=== PATIENT | female | born 1930 | race Caucasian/White ===

== ENCOUNTER 2017-07-07 05:58 | Inpatient (IN) | payer MEDICARE, OTHER ==
[2017-07-07] MEDS ORDERED: Dexamethasone IV* 4 MG/ML 1 ML (4 MG) IV SLOW PU ONE (06:00)
[2017-07-07] MEDS ORDERED: Acetaminophen TAB* 325 MG PO ONE (06:00)
[2017-07-07] MEDS ORDERED: Buffered Lidocaine 0.9% SYRIN* 5 ML/SYR SYRINGE INTRADERM ONE (06:00)
[2017-07-07] MEDS ORDERED: ceFAZolin 2 GM PREMIX (*) 2 GM/50 ML BAG IVPB ONE (06:37)
[2017-07-07] MEDS ORDERED: Acetaminophen TAB* 325 MG ONE (06:37)
[2017-07-07] MEDS ORDERED: Dexamethasone IV* 4 MG/ML 1 ML (4 MG) ONE (06:37)
[2017-07-07] MEDS ORDERED: Buffered Lidocaine 0.9% SYRIN* 5 ML/SYR SYRINGE ONE (06:37)
[2017-07-07] MEDS ORDERED: Bupivacaine 0.25% SDV* 30 ML ONE (07:12)
[2017-07-07] MEDS ORDERED: fentaNYL* 50 MCG/ML 2 ML VIAL (100 MCG VIAL) ONE (07:13)
[2017-07-07] MEDS ORDERED: Midazolam* 1 MG/ML 2 ML VIAL (2 MG) ONE (07:13)
[2017-07-07] MEDS ORDERED: Levalbuterol 0.63MG/3ML NEB* UNIT OF USE INH PRN (07:25)
[2017-07-07] MEDS ORDERED: Ibuprofen TAB* 400 MG PO PRN (07:25)
[2017-07-07] MEDS ORDERED: fentaNYL* 50 MCG/ML 2 ML VIAL (100 MCG VIAL) IV PRN (07:25)
[2017-07-07] MEDS ORDERED: PROCHLORPERAZINE INJ 5 MG/ML 2 ML VIAL IV PRN (07:25)
[2017-07-07] MEDS ORDERED: oxyCODONE TAB* 5 MG TAB PO PRN (07:25)
[2017-07-07] MEDS ORDERED: HYDROmorphone INJ* 1 MG/ML CARPUJECT SYRINGE IV PRN (07:25)
[2017-07-07] MEDS ORDERED: Ondansetron INJ* 2 MG/ML VIAL IV PRN (07:25)
[2017-07-07] MEDS ORDERED: Levalbuterol 1.25MG/0.5ML NEB ONE (07:45)
[2017-07-07] MEDS ORDERED: Phenylephrine IV* 40 MCG/ML 10 ML SYRINGE ONE (09:00)
[2017-07-07] MEDS ORDERED: Propofol* 10 MG/ML 20 ML BTL IV PUSH ONE (09:00)
[2017-07-07] MEDS ORDERED: EPHEDrine (Pressors)* 50 MG/ML VIAL ONE (09:00)
[2017-07-07] MEDS ORDERED: Succinylcholine* 20 MG/ML 10 ML VIAL ONE (09:00)
[2017-07-07] MEDS ORDERED: Lidocaine 2% PF * 5 ML VIAL ONE (09:00)
[2017-07-07] MEDS ORDERED: Ondansetron INJ* 2 MG/ML VIAL ONE (09:00)
[2017-07-07] MEDS ORDERED: Sterile Water for Inj* 10 ML ONE (09:00)
[2017-07-07] MEDS ORDERED: Acetaminophen TAB* 325 MG PO PRN (11:14)
[2017-07-07] MEDS ORDERED: oxyCODONE/Acetamin 5/325 MG* TAB PO PRN (11:14)
[2017-07-07] MEDS ORDERED: diPHENhydraMINE PO* 25 MG PO PRN (11:14)
[2017-07-07] MEDS ORDERED: Carisoprodol TAB* 350 MG PO PRN (11:23)
[2017-07-07] MEDS ORDERED: Al Hydrox/Mg Hydrox/Simet LIQ* 30 ML UDC PO PRN (11:23)
[2017-07-07] MEDS ORDERED: Albuterol/Ipratropium NEB.SOL* Albuterol 2.5 MG/Ipratropium 0.5 MG 3 ML INH PRN (11:23)
[2017-07-07] MEDS ORDERED: LORazepam TAB(*) 0.5 MG PO PRN (11:23)
[2017-07-07] MEDS ORDERED: Olopatadine 0.2% (NF) 1 DROP BTL BOTH EYES PRN (11:23)
[2017-07-07] MEDS ORDERED: oxyCODONE TAB* 5 MG TAB ONE (12:10)
[2017-07-07] MEDS ORDERED: Senna TAB PO PRN (16:56)
[2017-07-07] MEDS: Mirtazapine TAB* 15 MG PO SCH (18:16)
[2017-07-07] MEDS: Betaxolol-S 0.25%* 10 ML BTL BOTH EYES SCH (18:18)
[2017-07-07] MEDS: Docusate CAP* 100 MG PO SCH (20:57)
[2017-07-07] MEDS: Magnesium Hydroxide LIQ* 30 ML UDC PO PRN (20:57)
[2017-07-08] MEDS: Naproxen TAB* 250 MG PO PRN (00:46)
[2017-07-08] MEDS: Omeprazole CAP* 20 MG PO SCH (08:02)
[2017-07-08] MEDS: Docusate CAP* 100 MG PO SCH ×2 (08:02→19:24)
[2017-07-08] MEDS: Tiotropium CAP.INH* CAP.INH/18 MCG (USE ORDER SET !) INH SCH (08:17)
--- NOTE | 2017-07-08 08:39 | PN ---
Progress Note - Progress Note Date of Service: 07/08/17 SOAP: Subjective: []Patient seen at bedside. She denies pain of RUE as long as she does not move it. Denies shortness of breath or chest pain. Has post nasal drip with mild productive cough. Objective: [] Vital Signs Temp 98.6 F 07/08/17 03:45 Pulse 83 07/08/17 03:45 Resp 14 07/08/17 07:15 BP 130/55 07/08/17 03:45 Pulse Ox 94 07/08/17 03:45 Intake & Output 07/07/17 07/08/17 07/08/17 18:59 06:59 18:59 Intake Total 1100 350 Output Total 225 200 200 Balance 875 150 -200 Intake: IV Fluids 800 CEFAZOLIN 2G 100 LR 700 Oral 300 350 Output: Urine 225 200 200 Other: # Bowel Movements 0 General: Well appearing, no acute distress. Calm and cooperative. RUE: in CDI splint, thumb and distal digits 2,3,4 exposed with sensation intact to light touch and brisk capillary refill. Good ROM of thumb, mild swelling. Does have ability to minimally wiggle digits 2-4 limited by splint. 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
--- NOTE | 2017-07-08 08:57 | OP ---
DATE OF OPERATION: 07/07/17 - ROOM #335 DATE OF : 34 SURGEON: Willam Madrigal MD STORAGE RECEIPT POSTER: BINU Zaman. An podiatrist assistant was needed for the entirety of the procedure to aid in positioning of the arm and retraction. ANESTHESIOLOGIST: Dr. Julia Wolfe. ANESTHESIA: General. PRE-OP DIAGNOSES: 1. 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 2. Subluxation extensor tendons with deficiency of the radial sagittal band, right index and middle fingers. POST-OP DIAGNOSIS: 1. 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 2. Subluxation extensor tendons with deficiency of the radial sagittal band, right index and middle fingers. OPERATIVE PROCEDURE: 1. Transfer of right ring finger extensor tendons on the dorsum of the hand to the third extensor digitorum communis tendon. 2. Transfer of the right small finger extensor tendons on the dorsum of the hand to the third extensor digitorum communis tendons. 3. Right distal ulna excision. 4. Right index finger extensor tendon centralization with radial sagittal band reconstruction. 5. Right middle finger extensor tendon centralization with radial sagittal band reconstruction. INDICATIONS: Aspen has had ruptures of her third and fourth extensor tendons without much ability to extend the small finger with very poor extension of the ring finger. She has other rheumatoid like findings including extensor tendon subluxation of the index and middle finger ulnarly with snapping of the middle finger, which was bringing out to full extension. She has a very prominent ulnar head distally. I talked to her about her options. She wanted to see if she gets an improved function of the hand and also see if we could do something to try to prevent further tendon ruptures. Of note, finger snapping was quite bothersome to her and she wanted to see if there is anything we could do to increase her ability to fix that. ESTIMATED BLOOD LOSS: 10 mL. COMPLICATIONS: I attempted to transfer the extensor indicis proprius tendon; however, it was unsuitable for transfer. DESCRIPTION OF PROCEDURE: Aspen was seen in the preoperative holding area. The correct site, side, and procedure were identified. We came back to the operating room. The arm was prepped and draped in the usual fashion and a time- out was performed. I began by making a transfer lazy-S type incision over the index and middle finger of second metacarpophalangeal joints. Dissection was carried down and full thickness flaps were raised off of the extensor tendon apparatus. The extensor indicis proprius tendon was released distally. I then came proximally and made a longitudinal incision over the ulnar aspect of the first dorsal compartment across the wrist joint. The extensor retinaculum was released overlying the fifth dorsal compartment. There was no extensor tendon there. The fourth dorsal compartment tendons were identified just proximal to the extensor retinaculum. DIP tendon was delivered proximal. I then made an arthrotomy over the DRUJ and then teethed this back transversely and distally just proximal to the dorsal radioulnar ligament. Soft tissue around the distal ulna was released with a knife with baby Hohmann was placed around the distal ulna. The distal ulna was excised just proximal to the DRUJ using a sagittal saw. I then made a 3.5 mm hole in the distal ulna stump. ECU tendon was split and distal half of the tendon was then transferred. Through the drill hole on the distal ulna stump released back on to itself and appropriate tension was set to secure the transfer. This was sewn in place with 3-0 Ethibond suture. It was performed at the wrist in the neutral extension. I then past the EIP tendon superficial of the extensor retinaculum and on to the dorsum of the hand. We went ahead and sewed the extensor tendon stumps to the ring and small fingers together after the fingers have been set in a nice cascade. I then went ahead and wove the EIP tendon through the fourth and fifth extensor digitorum communis tendons. When I went to set tension for the transfer, the EIP tendon ruptured at the musculotendinous junction. Given the lack of suitability for the EIP tendon, I went ahead and weaved the fourth and fifth tendon stumps through the extensor digitorum communis tendon of the middle finger. I set the tension at the wrist and 30 degrees extension and the fingers in slight hyperextension at the MCP joints. The tendon transfer was secured with a 3-0 Ethibond suture. I then checked the tension. It was looking good, so I went ahead and secure the rest of the transfer with 3-0 Ethibond suture to complete the peripheral TFCC beneath. Once that tendon transfer was complete, I turned my attention to the extensor tendons of the second and third fingers. I went ahead and took a distally based slip of the third EDC tendon. This was a very small piece. I wove it around the radial collateral ligament and then brought back up and sewed it to the extensor velasquez. This centralized the tendon very nicely. I augmented with a couple of additional 3-0 Ethibond figure-of- eight sutures. I centralized the index finger extensor tendon in a similar fashion with distally based split of the EDC tendon. This was brought down around the radial collateral ligament and sewn up to the extensor tendon in a similar fashion and augmented with a couple of 3-0 Ethibond [id number] sutures. I then checked the tendinosis. The fingers were moving in a very nice cascade. Everything was looking good, so I we went ahead and irrigated out the wounds. The arthrotomy with a DRUJ was closed with 4-0 Vicryl. A small proximal extensor retinaculum was closed with 4-0 Vicryl. The skin was closed with 4-0 nylon suture. All the operative wounds were infiltrated with 0.25% Marcaine. The wounds were dressed with Xeroform, 4x4, sterile Webril, and ABD over the dorsum of the wrist and then a wrist splint was applied holding the wrist in slight extension in the MCP joints of the second through fifth fingers in full extension and EIP joints in full extension. The tourniquet was deflated. The hand pinked up immediately. She was then woken up and taken to recovery room in stable condition. [id number]/[facility] #: [id number] ROBERT
[2017-07-08] MEDS ORDERED: Spiriva Inhaler DEVICE* 1 EACH DEVICE INH ONE (09:00)
[2017-07-08] MEDS: Betaxolol-S 0.25%* 10 ML BTL BOTH EYES SCH (17:25)
[2017-07-08] MEDS: Mirtazapine TAB* 15 MG PO SCH (17:25)
[2017-07-08] MEDS: Magnesium Hydroxide LIQ* 30 ML UDC PO PRN (19:24)
[2017-07-09] MEDS: Omeprazole CAP* 20 MG PO SCH (07:12)
[2017-07-09] MEDS: Naproxen TAB* 250 MG PO PRN (07:14)
--- NOTE | 2017-07-09 08:10 | PN ---
Progress Note - Progress Note Date of Service: 07/09/17 SOAP: Subjective: []Patient seen at bedside. She denies pain of RUE, chest pain, shortness of breath, dizziness, fever or chills. Objective: [] Vital Signs Temp 98.0 F 07/09/17 07:26 Pulse 69 07/09/17 07:26 Resp 20 07/09/17 07:26 BP 132/47 07/09/17 07:26 Pulse Ox 96 07/09/17 07:26 Intake & Output 07/08/17 07/09/17 07/09/17 18:59 06:59 18:59 Intake Total 1465 1464 Output Total 1325 1150 Balance 140 314 Intake: IV Fluids 985 974 LR 974 Oral 480 490 Output: Urine 1325 1150 Other: # Bowel Movements 0 General: Well appearing, no acute distress. Carries on appropriate conversation. RUE: splint CDI. Skin intact. Purple bruising on dorsal aspect 3 cm proximal to splint, spans up to elbow on ulnar aspect. Thumb edematous with purple bruising from splint to DIP. Brisk capillary refill of distal aspect of thumb. No tenderness of exposed aspect of digits, or distal to splint. Good ROM thumb and elbow. Sensation intact distally to light touch of digits 1-4, 5 unexposed. Brachial pulse 2+. Assessment: []POD 2 s/p right hand extensor indices propius to ring and small finger extensor tendon transfers, distal ulna excision and index and middle finger extensor centralization 07/07/17 Dr. 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
[2017-07-09] MEDS: Docusate CAP* 100 MG PO SCH ×2 (08:26→22:17)
[2017-07-09] MEDS: Magnesium Hydroxide LIQ* 30 ML UDC PO PRN (08:26)
[2017-07-09] MEDS: Tiotropium CAP.INH* CAP.INH/18 MCG (USE ORDER SET !) INH SCH (09:24)
[2017-07-09] MEDS ORDERED: Bisacodyl SUPP* 10 MG SUPP PR PRN (10:54)
[2017-07-09] MEDS: Mirtazapine TAB* 15 MG PO SCH (18:43)
[2017-07-09] MEDS: Betaxolol-S 0.25%* 10 ML BTL BOTH EYES SCH (18:44)
[2017-07-10 08:57] VITALS: BP 126/46
[2017-07-10] MEDS: Omeprazole CAP* 20 MG PO SCH (09:13)
[2017-07-10] MEDS: Tiotropium CAP.INH* CAP.INH/18 MCG (USE ORDER SET !) INH SCH (09:13)
[2017-07-10] MEDS: Docusate CAP* 100 MG PO SCH (09:13)
[2017-07-10] MEDS ORDERED: Docusate CAP* 100 MG PO PRN (09:24)
--- NOTE | 2017-07-10 09:24 | PN ---
Progress Note - Progress Note Date of Service: 07/10/17 SOAP: Subjective: []Patient seen at bedside. She is comfortable, denying pain. She successfully produced BM yesterday. No chest pain, shortness of breath, nausea or dizziness. Objective: []General: Well appearing, no acute distress. Carries on appropriate conversation. RUE: splint CDI. Skin intact. Purple bruising on dorsal and ulnar aspect. Thumb edematous with purple bruising from splint . Brisk capillary refill of distal aspect of thumb. No tenderness of exposed aspect of digits, or distal to splint. Good ROM thumb and elbow. Sensation intact distally to light touch of digits 1-4, 5 unexposed. Brachial pulse 2+. Vital Signs Temp 98.2 F 07/10/17 07:27 Pulse 65 07/10/17 07:27 Resp 20 07/10/17 07:27 BP 126/46 07/10/17 07:27 Pulse Ox 96 07/10/17 07:27 Intake & Output 07/09/17 07/10/17 07/10/17 18:59 06:59 18:59 Intake Total 200 Output Total 673 750 3284 Balance -350 -300 -1320 Intake: Oral 200 Output: Urine 736 143 2835 Other: Estimated Void Medium Date of Last Bowel 07/09/17 Movement # Bowel Movements 1 Estimated Stool Amount Large # Voids 1 Assessment: []POD 3 s/p right hand extensor indices propius to ring and small finger extensor tendon transfers, distal ulna excision and index and middle finger extensor centralization 07/07/17 Dr. Madrigal Plan: []Continue splint, no sling necessary Activity as tolerated, splint will restrict as needed Pain control - DC/ed narcotics D/C to [facility] today
[2017-07-10] MEDS: Naproxen TAB* 250 MG PO PRN (11:01)
--- NOTE | 2017-07-10 14:08 | DS ---
AMENDED REPORT NOW INCLUDES COSIGNER DESIGNATION - ESIGNED BEFORE ADJUSTMENT DATE OF ADMISSION: 07/08/2017. DATE OF SURGERY: 07/07/2017. DATE OF SERVICE: 07/10/2017. DATE OF DISCHARGE: 07/10/2017. PROVIDER: Dr. Willam Madrigal * (dictated by BINU Alvarez). ATHLETE MARKETING AGENT: BINU Zaman. 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 OPERATIVE PROCEDURE: 1. Transfer of right ring finger extensor tendons on the dorsum of the hand to the third extensor digitorum communis tendon. 2. Transfer of the right small finger extensor tendons on the dorsum of the hand to the third extensor digitorum communis tendons. 3. Right distal ulna excision. 4. Right index finger extensor tendon centralization with radial sagittal band reconstruction. 5. Right middle finger extensor tendon centralization with radial sagittal band reconstruction. CONSULTATIONS: Occupational Therapy and Physical Therapy. HISTORY: Aspen has had ruptures of her third and fourth extensor tendons without much ability to extend the small finger and very poor extension of the ring finger. She has other rheumatoid-like findings, including extensor tendon subluxation of the index and middle finger ulnarly with snapping of the middle finger which was bringing out to full extension. She has a very prominent ulnar head distally. Of note, finger snapping was quite bothersome to her and she elected to go forward with this procedure. She also wanted to see if she could get improved function of the hand and to try to see if she could prevent further tendon ruptures. HOSPITAL COURSE: The patient was admitted on 07/08/2017. She was initially listed as an observation patient and had her surgery on 07/07/2017. She underwent her operative procedure on 07/08/2017 without complications. The patient recovered briefly in the PACU and then was transferred to the Short Stay Surgical Unit in stable condition. On postop day one, the patient was well -appearing, in no acute distress. She was calm and cooperative. Her right upper extremity was in a splint, but was clean, dry and intact. Thumb and distal digits two, three and four were exposed with sensation intake to light touch and brisk capillary refill. She had good range of motion of her thumb with mild swelling. Her brachial pulse was 2+. Her pain was well controlled. On postop day two, the patient was well-appearing, in no acute distress. Her splint was clean, dry and intact. Her skin was intact. She did have purple bruising along the dorsal aspect 3 cm proximal to her split which spanned up to the elbow and the ulnar aspect. Her thumb was edematous with purple bruising from the splint to the DIP. Brisk capillary refills at the distal aspect of the thumb. She had no tenderness of exposed aspect of digits or distal to the splint. Good range of motion of the thumb and elbow. Sensation was intake to light touch digits one though four with digit five unexposed. Brachial pulses 2 +. Her pain was again well controlled. She did require a Dulcolax suppository which produced a bowel movement. On postop day three, the patient was well appearing, comfortable and with good pain control. Again, the splint was clean, dry and intact. Again seeing purple bruising of the dorsal and ulnar aspect with edematous thumb with purple bruising as well. On the day of discharge, temperature 98.2, pulse 65, respiratory rate 20, oxygen saturation 96, blood pressure 126/46. The patient remained afebrile throughout her hospital stay. Vital signs remained stable. On postop day three , the patient's pain is well controlled and she was found to be stable for discharge. CONDITION ON DISCHARGE: Stable. DISCHARGE MEDICATIONS: 1. Spiriva one cap per 18 mcg one cap inhaled q.a.m. 2. Remeron 15 mg, please take 7.5 mg p.o. q.p.m. 3. Soma 350 mg one tab p.o. daily prn. 4. Betoptic 0.25% one drop in both eyes q.p.m. 5. Maalox 200 per 200 per 20 per 5 ml 30 ml p.o. q.6 hours prn. 6. DuoNeb one neb per 3 ml, 3 ml inhaled q.6 hours prn. 7. Pantoprazole 40 mg q.p.m. 8. Pataday one drop both eyes q.p.m. prn. 9. Lorazepam 0.5 mg p.o. daily prn., 10. Naproxen was discontinued at home. 11. Acetaminophen 650 mg p.o. q.4 hours prn for pain with a maximum daily dose of 4000 mg daily from all sources. 12. Dulcolax 10 mg daily prn as a suppository. 13. Docusate 100 mg capsule 100 mg p.o. t.i.d. prn. 14. Ibuprofen 400 mg p.o. once prn. 15. Magnesium Hydroxide 30 ml p.o. b.i.d. prn. 16. Senna one tab p.o. daily prn. DISCHARGE INSTRUCTIONS: Continue splint, no sling necessary. Keep splint clean , dry and intact. Activity as tolerated, splint will restrict as needed. Follow- up with Dr. Madrigal between July 17 and July 21. BINU PRESLEY [id number]/[facility] #: [id number] ROBERT
== END 2017-07-10 12:00 | DRG 512 ==
LOC: OR 05:58 → SSU 11:14 → OBSVTOIN 07-08 11:17
PROVIDERS: ADMIT Orthopaedic Surgery Hand Surgery; ATTEND Orthopaedic Surgery Hand Surgery
PROC: 0PBK0ZZ Excision of Right Ulna, Open Approach (ICD-10-PCS; 2017-07-07)
PROC: 0LQ70ZZ Repair Right Hand Tendon, Open Approach (ICD-10-PCS; 2017-07-07)
PROC: 0LX70ZZ Transfer Right Hand Tendon, Open Approach (ICD-10-PCS; principal; 2017-07-07 07:45)
DX: M66.241 Spontaneous rupture of extensor tendons, right hand (principal); J44.9 Chronic obstructive pulmonary disease, unspecified; S63.214A Subluxation of metacarpophalangeal joint of right ring finger, initial encounter; S63.212A Subluxation of metacarpophalangeal joint of right middle finger, initial encounter; S63.210A Subluxation of metacarpophalangeal joint of right index finger, initial encounter; K21.9 Gastro-esophageal reflux disease without esophagitis; F32.9 Major depressive disorder, single episode, unspecified; F41.9 Anxiety disorder, unspecified; M81.0 Age-related osteoporosis without current pathological fracture; G56.21 Lesion of ulnar nerve, right upper limb; R09.82 Postnasal drip; M25.831 Other specified joint disorders, right wrist; R60.0 Localized edema; Z88.2 Allergy status to sulfonamides; Z87.891 Personal history of nicotine dependence; Z56.0 Unemployment, unspecified
CPT/HCPCS: 88304; 88311; 94760; A9270-GY; G0378; G8978-GP-CK; G8979-GP-CI; G8980-GP-CK; G8987-GO-CL; G8988-GO-CI; J0330; J0690; J1100; J2250; J2405; J2704; J3010

== ENCOUNTER 2017-07-23 00:34 | Emergency (ER) | payer MEDICARE, OTHER ==
[2017-07-23] MEDS ORDERED: Ondansetron ODT TAB* 4 MG PO ONE (01:36)
[2017-07-23 02:03] LABS: ABS Basophils 0.1 10^3/ul (0-0.2); ABS Eosinophils 0.1 10^3/ul (0-0.6); ABS Lymphocytes 1.2 10^3/ul (1.0-4.8); ABS Monocytes 0.6 10^3/ul (0-0.8); ABS Neutrophils 6.9 10^3/ul (1.5-7.7); ABS Nucleated RBC 0 10^3/ul; Eosinophil % 1.2 % (0-6); Hematocrit 29 % (35-47); Hemoglobin 8.9 g/dl (12.0-16.0); Lymphocyte % 13.3 % (25-47); Mean Corpuscular HGB Conc 31 g/dl (31-36); Mean Corpuscular Hemoglobin 24 pg (27-31); Mean Corpuscular Volume 78 fL (80-97); Mean Platelet Volume 8 um3 (7.4-10.4); Nucleated Red Blood Cells % 0; Platelet Count 310 10^3/ul (150-450); Red Blood Count 3.73 10^6/ul (4.0-5.4); Red Cell Distribution Width 17 % (10.5-15); White Blood Count 8.8 10^3/ul (3.5-10.8)
[2017-07-23 02:13] LABS: EGFR Non-African American 64.6 (>60)
[2017-07-23 02:31] LABS: Urine Appearance Clear; Urine Blood Negative (Negative); Urine Color Amber; Urine Ketones Negative (Negative); Urine Protein Negative (Negative); Urine Specific Gravity 1.017 (1.010-1.030); Urine Urobilinogen Positive (Negative)
[2017-07-23] MEDS ORDERED: Cephalexin CAP* 500 MG PO ONE (03:03)
[2017-07-23 03:32] VITALS: BP 124/65
--- NOTE | 2017-07-23 04:34 | ED ---
Hue Clarke Emily, scribed for Marilee Camp MD on 07/23/17 at 0128 . Back Pain - HPI Summary HPI Summary: This patient is an 86 year old F BIBA to [facility] with a chief complaint of back pain that began yesterday. The patient rates the pain 10/10 in severity. Symptoms aggravated by nothing. Symptoms alleviated by nothing. Patient reports nausea. Patient denies KC, fever, chills, diplopia, blurred vision, vomiting, diarrhea, anxiety, and depression. Pt has a hx of RA and glaucoma. - History of Current Complaint Chief Complaint: EDBackInjuryPain Stated Complaint: BACK PAIN Time Seen by Provider: 07/23/17 01:00 Hx Obtained From: Patient Onset/Duration: Sudden Onset, Lasting Hours, Still Present Onset/Duration: Started Hours Ago, Still Present Severity Initially: Severe Severity Currently: Severe Pain Intensity: 10 Pain Scale Used: 0-10 Numeric Aggravating Symptom(s): Nothing Alleviating Symptom(s): Nothing Associated Signs And Symptoms: Positive: Other - Positive nausea. Negative KC, fever, chills, diplopia, blurred vision, vomiting, diarrhea, anxiety, and depression - Allergies/Home Medications Allergies/Adverse Reactions: Allergies Allergy/AdvReac Type Severity Reaction Status Date / Time Sulfa Drugs Allergy Severe Swelling Verified 07/07/17 06:51 Lactose Intolerance (GI) Allergy Mild GI Upset Verified 07/07/17 06:51 PMH/Surg Hx/FS Hx/Imm Hx Previously Healthy: No Endocrine/Hematology History: Denies: Hx Anticoagulant Therapy, Hx Bone Marrow Disease, Hx Diabetes, Hx Sickle Cell Disease, Hx Thyroid Disease, Hx Anemia Cardiovascular History: Reports: Other Cardiovascular Problems/Disorders - RIGHT ANKLE SWELLING FOR PAST FEW MONTHS Denies: Hx Deep Vein Thrombosis, Hx Embolism, Hx Hypertension Respiratory History: Reports: Hx Chronic Obstructive Pulmonary Disease (COPD), Hx Pneumonia, Other Respiratory Problems/Disorders - HX PNEUMONIA X 2, HALF-WAY SMOKER 50+ YRS Denies: Hx Pulmonary Embolism GI History: Reports: Hx Gastroesophageal Reflux Disease, Hx Hiatal Hernia - REPAIRED 4 YRS AGO, Hx Ulcer Denies: Other GI Disorders History: Reports: Other Problems/Disorders - FREQUENCY, WEARS DEPENDS Musculoskeletal History: Reports: Hx Arthritis - KNEES, GENERALIZED, Hx Bursitis - LEFT ELBOW, OK NOW, Hx Osteoporosis, Other Musculoskeletal History - OSTEOPOROSIS, AMBULATES WITH A WALKER, SEE BELOW Sensory History: Reports: Hx Glaucoma, Hx Vision Problem Denies: Hx Cataracts, Hx Contacts or Glasses, Hx Hearing Aid Opthamlomology History: Reports: Hx Glaucoma, Hx Vision Problem Denies: Hx Cataracts, Hx Contacts or Glasses Neurological History: Denies: Hx Headaches, Hx Migraine, Hx Seizures, Hx Spinal Cord Injury Psychiatric History: Reports: Hx Anxiety, Hx Depression, Other Psychiatric Issues/Disorders - "untreated depression" says one daughter - Cancer History Hx Chemotherapy: No - Surgical History Surgery Procedure, Year, and Place: LEFT MASTOIDITIS AN . ORIF LEFT HIP- 1984- [facility]. LEFT BREAST BX- 30 YRS AGO- [facility] [place]. MACULAR HOLE RIGHT EYE- 2001- [facility]. HIATAL HERNIA REPAIR- 2012- [facility] [place] Hx Anesthesia Reactions: No Infectious Disease History: No Infectious Disease History: Denies: Hx Hepatitis, Traveled Outside the in Last 30 Days - Family History Known Family History: Positive: Cardiac Disease, Other - Lung CA - Social History Occupation: Retired Lives: Assisted Living Alcohol Use: None Substance Use Type: Reports: None Hx Tobacco Use: Yes Smoking Status (MU): Former Smoker Type: Cigarettes Amount Used/How Often: 1 PPD FOR 50+ YRS Length of Time of Smoking/Using Tobacco: 50+ YRS Have You Smoked in the Last Year: No Review of Systems Negative: Fever, Chills Negative: Blurred Vision, Diplopia Negative: Chest Pain Negative: Shortness Of Breath Positive: Nausea. Negative: Vomiting, Diarrhea Positive: no symptoms reported Positive: Other - Positive back pain Negative: Headache Negative: Anxious, Depressed All Other Systems Reviewed And Are Negative: No Physical Exam - Summary Physical Exam Summary: Appearance: Alert, conversive, nontoxic appearing. R arm is in a cast Skin: Warm, dry, no mottling, no rashes, no contusions HEENT: EOMI, PERRL, moist mucous membranes. L eye discharge Neck: No masses on the neck, supple Respiratory: Clear to auscultation, breath sounds present, no rales, no rhonchi , no wheezes Cardiovascular: RRR, pulses are symmetrical in both lower and upper extremities Abdomen: Soft, non-tender Bowel Sounds: Present Musculoskeletal: No CVA tenderness, no obvious deformity, moving all extremities in a grossly normal manner Neurological: A&Ox3, CN II-XII Intact, moving all extremities symmetrically Psychiatric: Normal affect and mood Triage Information Reviewed: Yes Vital Signs On Initial Exam: Initial Vitals Temp Pulse Resp BP Pulse Ox 98.3 F 84 20 162/118 96 07/23/17 00:44 07/23/17 00:44 07/23/17 00:44 07/23/17 00:44 07/23/17 00:44 Vital Signs Reviewed: Yes - Dunbar Coma Scale Coma Scale Total: 15 Diagnostics - Vital Signs Vital Signs Temp Pulse Resp BP Pulse Ox 07/23/17 00:44 98.3 F 84 20 162/118 96 - Laboratory Lab Results: Lab Results 07/23/17 07/23/17 07/23/17 Range/Units 01:45 01:45 02:16 WBC 8.8 (3.5-10.8) 10^3/ul RBC 3.73 L (4.0-5.4) 10^6/ul Hgb 8.9 L (12.0-16.0) g/dl Hct 29 L (35-47) % MCV 78 L (80-97) fL MCH 24 L (27-31) pg MCHC 31 (31-36) g/dl RDW 17 H (10.5-15) % Plt Count 310 (150-450) 10^3/ul MPV 8 (7.4-10.4) um3 Neut % (Auto) 78.0 (38-83) % Lymph % (Auto) 13.3 L (25-47) % [place] % (Auto) 6.7 (1-9) % Eos % (Auto) 1.2 (0-6) % Baso % (Auto) 0.8 (0-2) % Absolute Neuts (auto) 6.9 (1.5-7.7) 10^3/ul Absolute Lymphs (auto) 1.2 (1.0-4.8) 10^3/ul Absolute Monos (auto) 0.6 (0-0.8) 10^3/ul Absolute Eos (auto) 0.1 (0-0.6) 10^3/ul Absolute Basos (auto) 0.1 (0-0.2) 10^3/ul Absolute Nucleated RBC 0 10^3/ul Nucleated RBC % 0 Sodium 132 L (133-145) mmol/L Potassium 4.5 (3.5-5.0) mmol/L Chloride 102 (101-111) mmol/L Carbon Dioxide 25 (22-32) mmol/L Anion Gap 5 (2-11) mmol/L BUN 30 H (6-24) mg/dL Creatinine 0.84 (0.51-0.95) mg/dL Est GFR ( Amer) 83.1 (>60) Est GFR (Non-Af Amer) 64.6 (>60) BUN/Creatinine Ratio 35.7 H (8-20) Glucose 104 H (70-100) mg/dL Calcium 9.2 (8.6-10.3) mg/dL Total Bilirubin 0.30 (0.2-1.0) mg/dL AST 17 (13-39) U/L ALT 9 (7-52) U/L Alkaline Phosphatase 65 (34-104) U/L Total Protein 7.3 (6.4-8.9) g/dL Albumin 3.7 (3.2-5.2) g/dL Globulin 3.6 (2-4) g/dL Albumin/Globulin Ratio 1.0 (1-3) Urine Color Terri Urine Appearance Clear Urine pH 6.0 (5-9) Ur Specific Penrose 1.017 (1.010-1.030) Urine Protein Negative (Negative) Urine Ketones Negative (Negative) Urine Blood Negative (Negative) Urine Nitrate Positive H (Negative) Urine Bilirubin Negative (Negative) Urine Urobilinogen Positive H (Negative) Ur Leukocyte Esterase Negative (Negative) Urine WBC (Auto) Trace(0-5/hpf) (Absent) Urine RBC (Auto) 2+(6-10/hpf) H (Absent) Ur Squamous Epith Cells Present H (Absent) Urine Bacteria 1+ H (Absent) Urine Glucose Negative (Negative) Result Diagrams: 07/23/17 01:45 07/23/17 01:45 Lab Statement: Any lab studies that have been ordered have been reviewed, and results considered in the medical decision making process. - CT Abdomen/Pelvis CT Interpretation Completed By: Radiologist - CT abdomen and pelvis reveals, per radiologist, there is a moderately large hiatal hernia noted. There is a moderate amount of ingested fluid and debris noted within the hiatal hernia and stomach. There is no free air The gall bladder is mildly distended. There are no obvious gallstones. There is no hydronephrosis. There are no renal calculi. The abdominal aorta is heavily calcified and tortuous. There is no AAA. Extensive vascular calcification noted. There is a very large amount of stool noted in the colon. There is no evidence of intestinal obstruction. The appendix is nonvisualized on this examination. Urinary bladder is unremarkable. There are no bladder calculi. There is a compression hip pin noted on the left. There is lumbar scoliosis. There is likely chronic compression of the T12 and L2 vertebral bodies. There is diffuse bony demineralization. There is thoracic and lumbar endplate spondylosis. There is lumbar facet arthropathy. Dr. Camp has reviewed this radiology report. Re-Evaluation - Re-Evaluation First Eval Re-Evaluation Time: 02:54 Change: Improved Comment: Discussed plan of care with pt. Back Pain Course/Dx - Course Assessment/Plan: This patient is an 86 year old F BIBA to [facility] with a chief complaint of back pain that began yesterday. Physical Exam Findings. L eye discharge. R arm in a cast. CT abdomen and pelvis reveals, per radiologist, no acute disease. Trace WBCs with positive nitrates and positive bacteria, which leads to the diagnosis of UTI. Treat with. In the ED course the patient was given Zofran. Patient will be discharged with prescription for Keflex and follow up from PCP. The patient is agreeable with this plan. - Diagnoses Provider Diagnoses: UTI (urinary tract infection) Discharge - Discharge Plan Condition: Stable Disposition: HOME Prescriptions: Cephalexin CAP* [Keflex CAP*] 500 mg PO TID #21 cap Patient Education Materials: Low Back Strain (ED), Urinary Traction Infection in Older Adults (ED) Referrals: Brittney Connor MD [Primary Care Provider] - Additional Instructions: Take the keflex as instructed. return if worse or any new symptoms. It is important to follow up with your primary care physician. Take all medications as previously prescribed for your back pain. The documentation as recorded by the Hue collier Emily accurately reflects the service I personally performed and the decisions made by , Marilee Camp MD.
--- NOTE | 2017-07-23 08:17 | RAD ---
INDICATION: Back pain. COMPARISON: There are no prior studies available for comparison. TECHNIQUE: A CT scan of the abdomen and pelvis was performed without intravenous or oral contrast. Contiguous axial sections were obtained from the lung bases through the symphysis pubis. Images were reconstructed in the coronal and sagittal planes. FINDINGS: The lung bases are clear. No pleural effusion is present. The liver is normal in size with lobulated margin. There is a coarse calcification within the right hepatic lobe. No significant focal abnormality seen on this noncontrast study. The spleen is within normal limits in size. No calcified gallstones are noted. The pancreas appears to be within normal limits on this noncontrast study. The adrenal glands appear normal. The kidneys are slightly small in size. No renal calculi or hydronephrosis is seen. No bladder calculi are noted. The aorta is normal in caliber with severe calcific plaque present. Evaluation of the retroperitoneum is limited due to a paucity of intra-abdominal fat although no enlarged retroperitoneal lymph nodes are seen. There is a hiatal hernia. There is food debris within the stomach which is nondistended. The small bowel colon are nondistended. There is a large amount of stool present throughout the colon suggestive of constipation. The appendix is not visualized. There is no evidence for diverticulitis or colitis. No free intraperitoneal air or fluid is seen. The patient is status post operative reduction internal fixation of a fracture of the proximal left femur. There are severe chronic compression fractures of the T12 and L2 vertebral bodies. IMPRESSION: 1. LIMITED NONCONTRAST STUDY, NO EVIDENCE FOR ACUTE FINDING. 2. LARGE AMOUNT RETAINED STOOL CONSISTENT WITH CONSTIPATION. 3. SEVERE CHRONIC COMPRESSION FRACTURES OF THE T12 AND L2 VERTEBRAL BODIES.
--- NOTE | 2017-07-27 08:44 | PN ---
Progress Note - Progress Note Date of Service: 07/23/17 Note: Urine culture grew Aerococcus viridans 10-25,000 Patient placed on Keflex prior to discharge. Will await sensitivities. Nothing further at this time. Nancie Alvarez PA-C
== END 2017-07-23 03:32 | disposition home or self-care (01) ==
LOC: ED 00:34
DX: R11.0 Nausea (principal); M54.9 Dorsalgia, unspecified; Z87.891 Personal history of nicotine dependence; Z87.09 Personal history of other diseases of the respiratory system; N39.0 Urinary tract infection, site not specified; Z87.39 Personal history of other diseases of the musculoskeletal system and connective tissue; Z86.69 Personal history of other diseases of the nervous system and sense organs
CPT/HCPCS: 36415; 74176; 80053; 81003; 81015; 85025; 87077; 87086; 87186; 99284; A9270-GY

== ENCOUNTER 2017-08-13 21:46 | Inpatient (IN) | payer MEDICARE, OTHER ==
[2017-08-13 23:12] LABS: ABS Basophils 0 10^3/ul (0-0.2); ABS Eosinophils 0.1 10^3/ul (0-0.6); ABS Lymphocytes 1.2 10^3/ul (1.0-4.8); ABS Monocytes 0.7 10^3/ul (0-0.8); ABS Neutrophils 5.4 10^3/ul (1.5-7.7); ABS Nucleated RBC 0 10^3/ul; Eosinophil % 0.8 % (0-6); Hematocrit 32 % (35-47); Hemoglobin 10.1 g/dl (12.0-16.0); Mean Corpuscular HGB Conc 31 g/dl (31-36); Mean Corpuscular Hemoglobin 24 pg (27-31); Mean Corpuscular Volume 77 fL (80-97); Mean Platelet Volume 7 um3 (7.4-10.4); Nucleated Red Blood Cells % 0.1; Platelet Count 395 10^3/ul (150-450); Red Blood Count 4.17 10^6/ul (4.0-5.4); Red Cell Distribution Width 19 % (10.5-15); White Blood Count 7.4 10^3/ul (3.5-10.8)
[2017-08-13] MEDS: NS 0.9% 1000 ML* 1,000 ML IV SCH (23:12)
[2017-08-13 23:25] LABS: EGFR Non-African American 93.2 (>60)
[2017-08-14] MEDS ORDERED: Phenazopyridine 200 mg (NF) 200 MG TAB PO PRN (03:43)
[2017-08-14] MEDS ORDERED: NS 0.9% 1000 ML* 1,000 ML IV ONE (04:01)
[2017-08-14] MEDS ORDERED: Phenazopyridine TAB* 100 MG ONE (04:03)
[2017-08-14] MEDS: NS 0.9% 1000 ML* 1,000 ML IV SCH ×3 (04:06→16:42)
[2017-08-14] MEDS ORDERED: Al Hydrox/Mg Hydrox/Simet LIQ* 30 ML UDC PO ONE (04:13)
[2017-08-14] MEDS ORDERED: Ibuprofen TAB* 400 MG PO PRN (04:33)
[2017-08-14] MEDS ORDERED: LORazepam TAB(*) 0.5 MG PO PRN (04:33)
[2017-08-14] MEDS ORDERED: Albuterol/Ipratropium NEB.SOL* Albuterol 2.5 MG/Ipratropium 0.5 MG 3 ML INH PRN (04:33)
[2017-08-14] MEDS ORDERED: Carisoprodol TAB* 350 MG PO PRN (04:34)
[2017-08-14] MEDS ORDERED: Acetaminophen TAB* 325 MG PO PRN (04:36)
[2017-08-14] MEDS ORDERED: Senna TAB PO PRN (04:36)
[2017-08-14] MEDS ORDERED: oxyCODONE/Acetamin 5/325 MG* TAB PO PRN (04:36)
[2017-08-14] MEDS ORDERED: Ondansetron INJ* 2 MG/ML VIAL IV PRN (04:36)
[2017-08-14] MEDS ORDERED: Spiriva Inhaler DEVICE* 1 EACH DEVICE SCH (05:00)
[2017-08-14] MEDS: Heparin VIAL(*) 5000 UNITS/ML VIAL (FIVE THOUSAND) SUBCUT SCH ×3 (05:58→22:46)
[2017-08-14] MEDS: Omeprazole CAP* 20 MG PO SCH (05:58)
[2017-08-14] MEDS: Ciprofloxacin TAB* 500 MG PO SCH ×2 (07:45→22:39)
--- NOTE | 2017-08-14 08:06 | RAD ---
INDICATION: Epigastric pain COMPARISON: Most recent comparison chest x-ray dated March 02, 2014 TECHNIQUE: Single AP portable view of the chest was obtained. FINDINGS: Image quality is compromised due to the relative inferiority of a portable chest x-ray. The heart and mediastinum exhibit normal size and contour. The lungs appear hyperaerated and this AP view only. There is a new density overlying the lateral mid-level left lung is not seen on the previous chest x-ray. What appears to be a large hiatal hernia in the prior chest x-ray is not well-visualized today. Visualized bones are normal for the patient's age. IMPRESSION: New linear density at the lateral left mid level lung could represent atelectasis, focal pneumonia or a neoplastic etiology.
[2017-08-14] MEDS ORDERED: Spiriva Inhaler DEVICE* 1 EACH DEVICE INH SCH (09:00)
[2017-08-14] MEDS ORDERED: Tiotropium CAP.INH* CAP.INH/18 MCG (USE ORDER SET !) INH ONE (09:18)
[2017-08-14] MEDS: Tiotropium CAP.INH* CAP.INH/18 MCG (USE ORDER SET !) INH SCH (09:20)
[2017-08-14] MEDS: Betaxolol-S 0.25%* 10 ML BTL BOTH EYES SCH (10:04)
[2017-08-14] MEDS: Phenazopyridine TAB* 100 MG PO PRN (10:48)
[2017-08-14] MEDS ORDERED: Al Hydrox/Mg Hydrox/Simet LIQ* 30 ML UDC PO PRN (11:04)
--- NOTE | 2017-08-14 12:39 | HP ---
CC: Marisa Puri MD, [facility] HISTORY AND PHYSICAL: DATE OF ADMISSION: 08/14/17 TIME OF EVALUATION: 0400. PRIMARY CARE PHYSICIAN: Marisa Puri MD CHIEF COMPLAINT: Nausea and diarrhea. HISTORY OF PRESENT ILLNESS: This is an 87-year-old female with a past medical history of COPD, chronic back pain, who presents to the emergency room from [facility] after feeling diarrhea and nausea. The patient states that she had a surgery on her right hand for contracture and tendon repair and went to [facility] for rehab. She states she really has not been able to participate because she has been unwell there with diarrhea off and on, nausea, and epigastric pain. She states her appetite has been poor, she has lost about 10 pounds, and she is also complaining of aches all over, pain in her back. She states that she has epigastric pain with burping and indigestion. She denies any shortness of breath or chest pain. No fevers or chills. She states she also has been having issues with urinary retention, she always feels like she has to go and is unable to and she states her bladder always feels full. Otherwise review of systems is negative. In the emergency room, the patient had labs. She was found to be profoundly orthostatic. She was given a liter of normal saline, she is currently on her second liter and Pyridium, a Mcclain catheter was placed, and she was referred to the hospitalist service for further evaluation. PAST MEDICAL HISTORY: COPD, glaucoma, chronic back pain with degenerative findings, constipation. It appears she was recently started on azithromycin and now she was started on ciprofloxacin for presumed UTI and a recent right hand repair. MEDICATIONS: 1. Tylenol 1000 mg every 8 hours as needed for pain. 2. Azithromycin 250 mg daily. 3. Betaxolol 1 drop both eyes in the evening. 4. Suppository as needed for constipation. 5. Cipro 500 mg 1 tab b.i.d. x5 days, started on 08/13/17. 6. Colace 100 mg b.i.d. as needed. 7. DuoNeb q.6 hours as needed. 8. Lorazepam 0.5 mg every 6 hours as needed. 9. Mirtazapine 7.5 mg at bedtime. 10. Naproxen 250 mg every 12 hours as needed. 11. Protonix 40 mg p.o. daily. 12. Pyridium 100 mg by mouth daily. 13. Senna 1 tab daily as needed for constipation. 14. Soma 350 mg 1 tab every 8 hours as needed for muscle spasm. 15. Tiotropium 18 mcg orally 1 tab a day to prevent bronchospasm. ALLERGIES: SULFA DRUGS, LACTOSE INTOLERANT, CODEINE. FAMILY HISTORY: Reviewed and noncontributory. SOCIAL HISTORY: As mentioned, the patient resides at [facility] temporarily, is planning to get back home. She has been normally ambulating with a walker. She states she has been doing less and less and more wheelchair bound. Remote history of tobacco use, quit 15 years ago with smoking a pack and a half per day for a long time. No alcohol use or illicit drug use. Code status confirmed. She remains a DNR/DNI. Her healthcare proxy is her daughter, Edna. REVIEW OF SYSTEMS: A 14-point review of systems as mentioned in the HPI, otherwise negative. PHYSICAL EXAMINATION GENERAL: Frail, elderly female, cachectic appearing, in no acute distress. VITAL SIGNS: Temp 99.7, pulse rate 90, respiratory rate 18, oxygen saturation 97% on room air, and blood pressure 159/70. When she was orthostatic, her heart rate went up to 128, blood pressure went down to 95/55. HEENT: Head: Normocephalic. Pupils are equal and reactive and anicteric. Oropharynx: Mucous membranes dry. NECK: Supple. RESPIRATORY: Diminished breath sounds. No wheezes, rhonchi, or rales. CARDIAC: Regular rhythm with ectopic beats. ABDOMEN: Some mild epigastric tenderness, soft, and nontender. Normal bowel sounds. EXTREMITIES: No clubbing, cyanosis, or edema. +1 DP. NEUROLOGIC: Alert and oriented x3. No gross focal neurological deficits. DIAGNOSTIC STUDIES/LAB DATA: White count 7.4, hemoglobin 10.1, hematocrit 32, platelets 395. Sodium 138, potassium 4.4, chloride 108, bicarb 23, BUN 13, creatinine of 0.61, albumin is 3.1. EKG shows normal sinus rhythm. ASSESSMENT AND PLAN: This is an 87-year-old female, who has recently been on azithromycin and now ciprofloxacin, who returns to the emergency room with diarrhea and nausea. 1. Diarrhea and nausea. Assessment: The patient profoundly orthostatic, appears dry on exam. It is unclear of the etiology. She does have epigastric pain and feelings of diarrhea, although she has not had any diarrhea in the emergency room for the past 6 hours. No vomiting either. She has been on antibiotics, but no white count, not unreasonable to do a stool culture and Clostridium difficile test. Concerning with her weight loss and her cachexia, maybe there is an underlying malignant process, gastrointestinal process going on. Plan: We will continue hydration. Continue her Cipro for her urinary tract infection, follow up on her urine culture. Hold off on further azithromycin. We will obtain a chest x-ray to assess for any underlying malignancy or adenopathy. If gastrointestinal symptoms persist, consider GI consultation for further evaluation of underlying malignancy. 2. Urinary retention - Mcclain was placed in ER. May consider d/c with voiding trial at some point. 2. Chronic obstructive pulmonary disease. Continue her inhaler regimen, continue her lorazepam, and resume her home medications as prescribed. 3. FEN. We will place her on a regular diet. We will check a prealbumin as her albumin is low and we will place a Nutrition consult. 4. DVT prophylaxis. The patient is of course moderate risk. Place her on heparin subcu t.i.d. 5. Code status. The patient confirmed DNR/DNI. PATIENT TIME: Greater than 60 minutes spent doing the history and physical, more than half time spent in direct patient contact. [id number]/[facility] #: [id number] MTDD
--- NOTE | 2017-08-14 15:40 | PN ---
Hospitalist Progress Note Date of Service: 08/14/17 seen and examined by me today. She denies any more diarrhea. Denies nausea, vomiting, fevers, shortness of breath, or chest pain. She does have a productive cough. She also complains of indigestion, but says she has had that "forever," and it is usually relieved with Maalox. When asked why she was sent to the emergency department yesterday, she says she has simply been "tired of everything." No dysuria, confusion. Stool studies have not been collected because she has not had a bowel movement since admission. Since she has not had any more diarrhea, I have little concern for an infectious source. She was noted to be orthostatic upon admission, however, so we will continue to hydrate her and recheck orthostatics before return to SNF.
[2017-08-14] MEDS: Al Hydrox/Mg Hydrox/Simet LIQ* 30 ML UDC PO PRN ×2 (15:59→22:44)
--- NOTE | 2017-08-14 16:57 | RAD ---
INDICATION: 87-year-old with epigastric pain COMPARISON: CT July 23, 2017 TECHNIQUE: Longitudinal and transverse scans of the abdomen were obtained. Doppler interrogation of the hepatic and portal venous system was performed. FINDINGS: Liver: The liver is normal in size and echogenicity. There are no focal masses. The liver measures 12 cm in cephalocaudal dimension. Vessels: There is normal hepatic and portal venous flow. Bile ducts: There is no evidence of intrahepatic or extrahepatic ductal dilatation. The common duct measures 0.5 cm. Gallbladder: The sonographic appearance of the gallbladder is normal. There is no evidence of cholelithiasis, thickening of the gallbladder wall, or pericholecystic fluid. Pancreas: The visualized portions of the pancreas are normal Spleen:The spleen is normal in size and echogenicity. The spleen measures 8.6 x 3.7 x 3.4 cm. Kidneys: The kidneys are normal in size and echogenicity. There are no masses or calculi. There is no evidence of hydronephrosis. The right kidney measures 9.0 x 3.6 x 5.7 cm and the left kidney measures 8.7 x 4.2 x 3.4 cm. IVC and aorta: The aorta and superior vena cava appear normal. Fluid: There is no ascites. Other: None. IMPRESSION: NO SONOGRAPHIC ABNORMALITIES.
[2017-08-14] MEDS: Mirtazapine TAB* 15 MG PO SCH (22:39)
[2017-08-15] MEDS: NS 0.9% 1000 ML* 1,000 ML IV SCH ×2 (00:45→21:02)
[2017-08-15] MEDS: Omeprazole CAP* 20 MG PO SCH (06:02)
[2017-08-15] MEDS: Heparin VIAL(*) 5000 UNITS/ML VIAL (FIVE THOUSAND) SUBCUT SCH ×3 (06:02→21:18)
[2017-08-15] MEDS: Tiotropium CAP.INH* CAP.INH/18 MCG (USE ORDER SET !) INH SCH (08:53)
[2017-08-15] MEDS: Ciprofloxacin TAB* 500 MG PO SCH ×2 (10:01→21:16)
[2017-08-15] MEDS: Betaxolol-S 0.25%* 10 ML BTL BOTH EYES SCH (10:01)
[2017-08-15 12:34] LABS: EGFR Non-African American 112.1 (>60)
[2017-08-15] MEDS ORDERED: NS 0.9% 1000 ML* 1,000 ML IV SCH (18:30)
[2017-08-15] MEDS: Mirtazapine TAB* 15 MG PO SCH (20:55)
--- NOTE | 2017-08-15 22:04 | PN ---
Subjective Date of Service: 08/15/17 Interval History: Patient states that she is feeling better. Denies N/V/D. denies Abd pain. Denies shortness of breath or chest pain. Would like her lozano removed. c/o back pain, does report that she has old compression fractures in her back. Family History: Unchanged from Admission Social History: Unchanged from Admission Past Medical History: Unchanged from Admission Objective Active Medications: Acetaminophen (Tylenol Tab*) 650 mg PO Q4H PRN PRN Reason: FEVER/PAIN Al Hydrox/Mg Hydrox/Simethicone (Maalox Plus*) 30 ml PO Q6H PRN PRN Reason: INDIGESTION Last Admin: 08/14/17 22:44 Dose: 30 ml Albuterol/Ipratropium (Duoneb (Albuterol 2.5 Mg/Ipratropium 0.5 Mg)) 1 neb INH Q4H PRN PRN Reason: SOB/WHEEZING Betaxolol HCl (Betoptic-S 0.25%*) 1 drop BOTH EYES DAILY [facility] Last Admin: 08/15/17 10:01 Dose: 1 drop Carisoprodol (Soma Tab*) 350 mg PO Q8H PRN PRN Reason: PAIN Ciprofloxacin (Cipro Tab*) 500 mg PO Q12HR [facility] Last Admin: 08/15/17 21:16 Dose: 500 mg Device (Tiotropium Inhaler Device*) 1 each INH .USE w/ SPIRIVA CAPS [facility] Docusate Sodium (Colace Cap*) 100 mg PO BID PRN PRN Reason: CONSTIPATION Heparin Sodium (Porcine) (Heparin Vial(*)) 5,000 units SUBCUT Q8HR [facility] Last Admin: 08/15/17 21:18 Dose: 5,000 units Sodium Chloride (Ns 0.9% 1000 Ml*) 1,000 mls @ 75 mls/hr IV .PER RATE [facility] Last Admin: 08/15/17 21:02 Dose: 75 mls/hr Ibuprofen (Motrin Tab*) 400 mg PO Q6H PRN PRN Reason: PAIN Lorazepam (Ativan Tab(*)) 0.5 mg PO Q6H PRN PRN Reason: ANXIETY Mirtazapine (Remeron Tab*) 7.5 mg PO BEDTIME [facility] Last Admin: 08/15/17 20:55 Dose: 7.5 mg Omeprazole (Prilosec Cap*) 20 mg PO 0600 [facility] Last Admin: 08/15/17 06:02 Dose: 20 mg Ondansetron HCl (Zofran Inj*) 4 mg IV Q4H PRN PRN Reason: NAUSEA/VOMITING Phenazopyridine HCl (Pyridium Tab*) 200 mg PO TID PRN PRN Reason: PAIN Last Admin: 08/14/17 10:48 Dose: 200 mg Senna (Senokot Tab*) 1 tab PO BID PRN PRN Reason: CONSTIPATION Tiotropium [place] (Spiriva Cap.Inh*) 1 cap INH DAILY [facility] Last Admin: 08/15/17 08:53 Dose: 1 cap Vital Signs - 8 hr 08/15/17 08/15/17 08/15/17 15:26 15:45 19:26 Temperature 97.9 F 98.2 F Pulse Rate 78 103 84 Respiratory 16 22 Rate Blood Pressure 147/63 108/57 132/58 (mmHg) O2 Sat by Pulse 96 97 Oximetry Oxygen Devices in Use Now: None Appearance: appears well, resting in bed Ears/Nose/Mouth/Throat: Clear Oropharnyx, Mucous Membranes Moist Neck: NL Appearance and Movements; NL JVP, Trachea Midline Respiratory: Symmetrical Chest Expansion and Respiratory Effort, Clear to Auscultation Cardiovascular: NL Sounds; No Murmurs; No JVD, RRR, No Edema Abdominal: NL Sounds; No Tenderness; No Distention Extremities: No Edema, No Clubbing, Cyanosis Neurological: Alert and Oriented x 3 Nutrition: Taking PO's Result Diagrams: 08/16/17 07:58 08/16/17 07:58 Microbiology and Other Data: Microbiology 08/14/17 22:35 Gram Stain - Final Sputum Expectorated 08/14/17 05:30 Nasal Screen MRSA (PCR)(DORI) - Final Nasal Mrsa Negative Assess/Plan/Problems-Billing Assessment: This is an 87 y.o female with a history of copd and back pain who presented to the emergency room with diarrhea and nausea. She has had no diarrhea or nausea today. Orthostatic vital signs were rechecked and still remains orthostatic. IV NS was started at 755cc/hr will recheck in the AM. - Patient Problems (1) Orthostatic hypotension Current Visit: Yes Status: Acute Code(s): I95.1 - ORTHOSTATIC HYPOTENSION SNOMED Code(s): 93182610 Comment: Iv fluids NS@75 cc/hr Persistently orthostatic. Appears euvolemic on exam. 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 (2) UTI (urinary tract infection) Current Visit: Yes Status: Acute Comment: Continue Cipro as ordered to complete a 7 day course. (3) COPD (chronic obstructive pulmonary disease) Current Visit: No Status: Chronic Code(s): J44.9 - CHRONIC OBSTRUCTIVE PULMONARY DISEASE, UNSPECIFIED SNOMED Code(s): 69351559 Comment: Continue sprivia albuterol as needed for SOB (4) Osteoporosis Current Visit: No Status: Chronic Code(s): M81.0 - AGE-RELATED OSTEOPOROSIS W/O CURRENT PATHOLOGICAL FRACTURE SNOMED Code(s): 45569605 Comment: No signs of pathologic fracture. (5) Severe scoliosis Current Visit: No Status: Chronic Code(s): M41.9 - SCOLIOSIS, UNSPECIFIED SNOMED Code(s): 568910883 Status and Disposition: Recheck orthostatic vital in the AM, possible discharge tomorrow
[2017-08-16] MEDS: Al Hydrox/Mg Hydrox/Simet LIQ* 30 ML UDC PO PRN ×2 (04:30→10:31)
[2017-08-16] MEDS: Omeprazole CAP* 20 MG PO SCH ×2 (06:32→22:13)
[2017-08-16] MEDS: Heparin VIAL(*) 5000 UNITS/ML VIAL (FIVE THOUSAND) SUBCUT SCH ×3 (06:40→22:13)
[2017-08-16 08:07] LABS: ABS Basophils 0.1 10^3/ul (0-0.2); ABS Eosinophils 0.3 10^3/ul (0-0.6); ABS Lymphocytes 1.7 10^3/ul (1.0-4.8); ABS Monocytes 0.5 10^3/ul (0-0.8); ABS Neutrophils 4.2 10^3/ul (1.5-7.7); ABS Nucleated RBC 0 10^3/ul; Hematocrit 31 % (35-47); Lymphocyte % 25.1 % (25-47); Mean Corpuscular HGB Conc 32 g/dl (31-36); Mean Corpuscular Hemoglobin 24 pg (27-31); Mean Corpuscular Volume 76 fL (80-97); Mean Platelet Volume 7 um3 (7.4-10.4); Nucleated Red Blood Cells % 0; Platelet Count 371 10^3/ul (150-450); Red Blood Count 4.11 10^6/ul (4.0-5.4); Red Cell Distribution Width 20 % (10.5-15); White Blood Count 6.7 10^3/ul (3.5-10.8)
[2017-08-16] MEDS: Tiotropium CAP.INH* CAP.INH/18 MCG (USE ORDER SET !) INH SCH (08:18)
[2017-08-16 08:20] LABS: EGFR Non-African American 98.8 (>60)
[2017-08-16] MEDS ORDERED: Spiriva Inhaler DEVICE* 1 EACH DEVICE INH ONE (09:00)
[2017-08-16] MEDS: Ciprofloxacin TAB* 500 MG PO SCH ×2 (10:24→22:13)
[2017-08-16] MEDS: Betaxolol-S 0.25%* 10 ML BTL BOTH EYES SCH (10:25)
[2017-08-16] MEDS: NS 0.9% 1000 ML* 1,000 ML IV SCH (10:37)
[2017-08-16] MEDS ORDERED: Iohexol 300* (CONTRAST) 10 ML SDV IV ONE (14:28)
--- NOTE | 2017-08-16 15:34 | RAD ---
Indication: Weight loss, epigastric pain. Contrast: Administered 52.2 ml of OMNIPAQUE 300 mg/ml. CT of the abdomen and pelvis was performed after oral and IV contrast administration. Coronal and sagittal reconstructed images were obtained. Comparison is made with previous exam dated July 23, 2017. The lung bases demonstrates small left pleural effusion. There is soft tissue or fluid within the dilated bronchus. Left lower lobe atelectasis or mass is not excluded. Nonemergent chest CT could BE performed to further evaluate. The heart is of normal size without evidence of pericardial effusion. A large hiatal hernia is noted. Liver is normal in size. No focal lesions or intrahepatic ductal dilatation is noted. The gallbladder is partially contracted with no calcified gallstones. No pericholecystic fluid or wall thickening is identified. Pancreas demonstrates no mass or pancreatic duct dilatation. The common duct is not dilated. The spleen demonstrates old granulomatous disease. No adrenal masses are noted. Atherosclerotic aorta is noted. No dilated loops of bowel are noted. There is fecal stasis with stool throughout the colon. Urinary bladder is unremarkable. No pelvic adenopathy is noted. Pelvic ring is intact. Patient is status post left hip replacement. Again noted are compression fractures of L2, L1 and T12 which are unchanged from prior exam. IMPRESSION: There is soft tissue and atelectasis or mass in the left lower lobe. Left pleural effusion is noted. Small right pleural effusion is noted. Follow-up with chest CT is suggested in a nonemergent basis. There is a hiatal hernia present. There is stool throughout the colon. No bowel obstruction is noted.
--- NOTE | 2017-08-16 16:06 | PN ---
Subjective Date of Service: 08/16/17 Interval History: Patient complains only of epigastric pain which is constant, mild, unaffected by eating and not reproducible with palpation. Patient states this is a chronic pain and has been present since before she had surgery for a large paraesophageal hernia in 2013. Patient denies other symptoms of reflux. Patient denies CP, SOB, N/V, dizziness, lightheadedness, F/C, Abdominal pain, Diarrhea, constipation, weakness, or other pain. Patient states that she has been depressed since being in the retirement, has not had any interest in things that used to interest her, and has had decreased appetite. Family History: Unchanged from Admission Social History: Unchanged from Admission Past Medical History: Unchanged from Admission Objective Active Medications: Acetaminophen (Tylenol Tab*) 650 mg PO Q4H PRN PRN Reason: FEVER/PAIN Al Hydrox/Mg Hydrox/Simethicone (Maalox Plus*) 30 ml PO Q6H PRN PRN Reason: INDIGESTION Last Admin: 08/16/17 10:31 Dose: 30 ml Albuterol/Ipratropium (Duoneb (Albuterol 2.5 Mg/Ipratropium 0.5 Mg)) 1 neb INH Q4H PRN PRN Reason: SOB/WHEEZING Betaxolol HCl (Betoptic-S 0.25%*) 1 drop BOTH EYES DAILY [facility] Last Admin: 08/16/17 10:25 Dose: 1 drop Carisoprodol (Soma Tab*) 350 mg PO Q8H PRN PRN Reason: PAIN Ciprofloxacin (Cipro Tab*) 500 mg PO Q12HR [facility] Last Admin: 08/16/17 10:24 Dose: 500 mg Docusate Sodium (Colace Cap*) 100 mg PO BID PRN PRN Reason: CONSTIPATION Heparin Sodium (Porcine) (Heparin Vial(*)) 5,000 units SUBCUT Q8HR [facility] Last Admin: 08/16/17 14:05 Dose: 5,000 units Sodium Chloride (Ns 0.9% 1000 Ml*) 1,000 mls @ 75 mls/hr IV .PER RATE [facility] Last Admin: 08/16/17 10:37 Dose: 75 mls/hr Ibuprofen (Motrin Tab*) 400 mg PO Q6H PRN PRN Reason: PAIN Lorazepam (Ativan Tab(*)) 0.5 mg PO Q6H PRN PRN Reason: ANXIETY Mirtazapine (Remeron Tab*) 7.5 mg PO BEDTIME [facility] Last Admin: 08/15/17 20:55 Dose: 7.5 mg Omeprazole (Prilosec Cap*) 20 mg PO BID [facility] Ondansetron HCl (Zofran Inj*) 4 mg IV Q4H PRN PRN Reason: NAUSEA/VOMITING Phenazopyridine HCl (Pyridium Tab*) 200 mg PO TID PRN PRN Reason: PAIN Last Admin: 08/14/17 10:48 Dose: 200 mg Senna (Senokot Tab*) 1 tab PO BID PRN PRN Reason: CONSTIPATION Tiotropium [place] (Spiriva Cap.Inh*) 1 cap INH DAILY [facility] Last Admin: 08/16/17 08:18 Dose: 1 cap Vital Signs - 8 hr 08/16/17 12:00 Pulse Rate 98 Blood Pressure 122/54 (mmHg) Oxygen Devices in Use Now: None Appearance: Patient is an emaciated 87yo female who appears stated age and is sitting in the bed in [facility]. Eyes: No Scleral Icterus, PERRLA Ears/Nose/Mouth/Throat: NL Teeth, Lips, Gums, Clear Oropharnyx, Mucous Membranes Moist Neck: NL Appearance and Movements; NL JVP, Trachea Midline Respiratory: Symmetrical Chest Expansion and Respiratory Effort, Clear to Auscultation, - Cardiovascular: NL Sounds; No Murmurs; No JVD, RRR, No Edema Abdominal: NL Sounds; No Tenderness; No Distention, No Hepatosplenomegaly Lymphatic: No Cervical Adenopathy Extremities: No Edema, No Clubbing, Cyanosis Skin: No Nodules or Sclerosis, - - Non-blanching areas of redness on B/L Heels. Neurological: Alert and Oriented x 3 Result Diagrams: 08/16/17 07:58 08/16/17 07:58 Microbiology and Other Data: Microbiology 08/14/17 22:35 Gram Stain - Final Sputum Expectorated 08/14/17 05:30 Nasal Screen MRSA (PCR)(DORI) - Final Nasal Mrsa Negative Assess/Plan/Problems-Billing Assessment: This is an 87 y.o female with a history of copd and back pain who presented to the emergency room with diarrhea and nausea. Patient is persistently orthostatic, but denies more dizziness on standing. Patient has continued epigastric pain without N/V or diarrhea and had an incidental lung mass with small pleural effusion found on CT scan. - Patient Problems (1) Orthostatic hypotension Current Visit: Yes Status: Acute Code(s): I95.1 - ORTHOSTATIC HYPOTENSION SNOMED Code(s): 17650766 Comment: Iv fluids NS@75 cc/hr Persistently orthostatic. Appears euvolemic on exam. 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 (2) UTI (urinary tract infection) Current Visit: Yes Status: Acute Comment: Continue Cipro as ordered to complete a 7 day course. (3) Paraesophageal hiatal hernia Current Visit: No Status: Acute Priority: High Onset Date: 04/21/14 Code (s): K44.9 - DIAPHRAGMATIC HERNIA WITHOUT OBSTRUCTION OR GANGRENE SNOMED Code( s): 6587485 Comment: Persistent moderate size hiatal hernia on CT. Possible cause of epigastric pain. No signs of Ivan's ulcer. Will increase Omeprazole as an empiric trial to help with epigastric pain. (4) COPD (chronic obstructive pulmonary disease) Current Visit: No Status: Chronic Code(s): J44.9 - CHRONIC OBSTRUCTIVE PULMONARY DISEASE, UNSPECIFIED SNOMED Code(s): 90109221 Comment: Continue sprivia albuterol as needed for SOB (5) Osteoporosis Current Visit: No Status: Chronic Code(s): M81.0 - AGE-RELATED OSTEOPOROSIS W/O CURRENT PATHOLOGICAL FRACTURE SNOMED Code(s): 63695648 Comment: No signs of pathologic fracture. (6) Pulmonary nodule Current Visit: Yes Status: Acute Code(s): R91.1 - SOLITARY PULMONARY NODULE SNOMED Code(s): 800066566 Comment: Patient had incidentally found intrabronchial pulmonary nodule found on CT scan with associated pleural effusion. This should be followed up outpatient with pulmonology. (7) DVT prophylaxis Current Visit: Yes Status: Acute Code(s): QMA7491 - SNOMED Code(s): 484554337 Comment: Heparin SubQ (8) DNR (do not resuscitate) Current Visit: Yes Status: Acute Status and Disposition: Hopeful discharge to [facility] tomorrow.
[2017-08-16] MEDS: Mirtazapine TAB* 15 MG PO SCH (22:11)
[2017-08-16] MEDS: Docusate CAP* 100 MG PO PRN (22:13)
[2017-08-17] MEDS: Heparin VIAL(*) 5000 UNITS/ML VIAL (FIVE THOUSAND) SUBCUT SCH (06:21)
[2017-08-17] MEDS: Tiotropium CAP.INH* CAP.INH/18 MCG (USE ORDER SET !) INH SCH (07:29)
[2017-08-17] MEDS: Al Hydrox/Mg Hydrox/Simet LIQ* 30 ML UDC PO PRN (08:41)
[2017-08-17] MEDS: Omeprazole CAP* 20 MG PO SCH (08:42)
[2017-08-17] MEDS: Betaxolol-S 0.25%* 10 ML BTL BOTH EYES SCH (08:42)
[2017-08-17] MEDS: Docusate CAP* 100 MG PO PRN (08:42)
[2017-08-17] MEDS: Ciprofloxacin TAB* 500 MG PO SCH (08:42)
[2017-08-17 09:38] VITALS: BP 93/50
[2017-08-17] MEDS: Phenazopyridine TAB* 100 MG PO PRN (12:52)
--- NOTE | 2017-08-18 09:02 | DS ---
CC: Dr. Brittney Connor * DISCHARGE SUMMARY: DATE OF ADMISSION: 08/14/17 DATE OF DISCHARGE: 08/17/17 PRIMARY CARE PROVIDER: Dr. Brittney Connor. MY ATTENDING WHILE IN THE HOSPITAL: Dr. Marisa Puri. * (DICTATED BY BINU KAHN) PRIMARY DISCHARGE DIAGNOSES: 1. Dehydration. 2. Urinary tract infection. 3. Weight loss. SECONDARY DISCHARGE DIAGNOSES: 1. Chronic back pain. 2. Glaucoma. 3. Chronic obstructive pulmonary disease. 4. Constipation. STUDIES DONE WHILE IN THE HOSPITAL: 1. Chest x-ray from 08/14/17 read as new layer density of left lower and middle lung could represent atelectasis, focal pneumonia, or neoplastic etiology. 2. Electrocardiogram from 08/13/17 shows normal sinus rhythm with PAC, rate of 86, QTc of 426, normal axis. No enlargement or hypertrophy. Baseline wander with artifact poor study, no blocks, no other abnormalities. 3. Abdominal ultrasound from 08/14/17 read as no sonographic abnormalities. 4. Abdomen and pelvis CT from 08/16/17 read as there is soft tissue atelectasis or mass in the left lower lobe. Left pleural effusion is noted. Small right pleural effusion is noted. Follow up with chest CT suggested in a nonemergent basis. There is a hiatal hernia present. There is stool throughout the colon. No obstruction noted. MEDICATIONS AT DISCHARGE: 1. Tiotropium 1 cap inhalation q. a.m. 2. Pyridium 100 mg p.o. daily as needed for urinary frequency. 3. Mirtazapine 7.5 mg p.o. q. p.m. 4. Magnesium hydroxide liquid 30 mL p.o. b.i.d. as needed. 5. Ciprofloxacin 500 mg p.o. b.i.d. x5. 6. Vitamin D 5000 units p.o. daily x30. 7. Soma 1 tab p.o. daily as needed x30. 8. Betoptic 1 drop both eyes q. p.m. 9. Pantoprazole 40 mg p.o. b.i.d. 10. Lorazepam 0.5 mg p.o. q. 6 hours as needed. 11. Albuterol 1 puff inhalation q. 4 hours as needed. 12. Maalox 30 mL p.o. q. 4 hours as needed. 13. Senna 1 tab p.o. daily as needed. 14. Docusate 100 mg p.o. t.i.d. as needed. 15. Tylenol 600 mg q. 4 hours as needed. 16. Pataday one drop both eyes q. p.m. as needed. New medications at discharge: 1. Ciprofloxacin. 2. Pantoprazole. 3. Albuterol inhaler. 4. Ativan. Medications discontinued at discharge: 1. Naproxen 250 mg p.o. q. 8 hours. 2. Tramadol 50 mg p.o. q. 6 hours. 3. DuoNeb nebulized solution. HOSPITAL COURSE: This is a brief summary of the patient's presentation. For more details, please see the history and physical from Dr. Hayley Catalan from . In brief, the patient is an 87-year-old female with past medical history significant for the above, who presented to the emergency room from [facility] where she was for rehab for a tendon fixation in her right hand. The patient had felt unwell and had diarrhea off and on, nausea and epigastric pain. The patient had poor appetite and lost 10 pounds. The patient complained of low back pain which was at her baseline. The patient also had a feeling of urinary urgency frequently, but had no signs of urinary retention. The patient was also found to be orthostatic. The patient was given Pyridium in the emergency department and a liter of normal saline as initially the patient was dehydrated. The patient was recently started on ciprofloxacin for a urinary tract infection. The patient continued to have upper gastrointestinal symptoms relieved with Maalox. The patient did not have any continued diarrhea after being admitted to the hospital. The patient was persistently orthostatic throughout her hospital admission. The patient was initially dizzy upon standing, but this resolved after 08/16/17. The patient had persistent annoying epigastric pain. The patient had previously been on naproxen [facility] in the [facility] for her chronic low back pain and the patient previously had a surgery to fix a very large hiatal hernia when she had similar epigastric pain previously. The patient had an abdominal ultrasound read as above with no findings due to the patient's weight loss and persistent upper gastrointestinal symptoms worrisome for ulcer or neoplastic polyps, as the patient underwent abdomen and pelvis CT, which showed no significant findings expect for the incidental lung mass, which corresponds with the infiltrates seen on her chest x-ray on admission. The patient's abdominal pain was worse with food, but some times better and generally relieved by Maalox, Soma, and lorazepam. The patient had very poor reaction to tramadol with nausea and altered mental status as well as sedation. The patient was positive total of 3.5 L while in the hospital; however, the patient did not gain any weight. The patient has lost 10 pounds since entering the [facility]. The patient appears and states that she is depressed and has been losing interest in things that used to interest her and had no appetite. The patient thinks she will do better when she returns home from [facility]. The patient was planning to leave [facility] on 08/18/17 to go live with her daughter. The patient had a urinary tract infection for which she was treated that had a positive culture on 08/10/17, which grew Klebsiella pneumoniae and enterococcus both of which were sensitive to ciprofloxacin. The patient continues to have urinary frequency and a feeling of retention while she was in the hospital; however, bladder scan showed that she was not retaining urine after her Mcclain catheter was removed. The patient stated repeatedly that she was somewhat tired of living and that people who are not designed to live were not meant to live this long. This was discussed with the patient's family and they wanted to take her home to live with them and get her out of the [facility] where she was not thriving. The patient had the lung mass found incidentally on her CT which may represent neoplastic process. This was discussed with the patient and she stated understanding and would want to pursue additional imaging to monitor this nodule. The patient will be discharged to home and not back to the [facility] per her and her daughter's preference. The patient will be setup with visiting nurse services to begin on 08/19/17 for additional help to help avoid caregiver strain on her daughter, which the patient is very concerned about. PHYSICAL EXAMINATION ON THE DAY OF DISCHARGE: General: The patient is an 87- year- old female, who appeared stated age and sitting comfortably in the bed, in no acute distress. The patient is visibly emaciated. Vital Signs: At the time of discharge, temperature 98.1, pulse rate 75, oxygen saturation 99% on room air, and blood pressure 174/68. Neck: Supple, nontender. No lymphadenopathy. No carotid bruits auscultated. Cardiac: Regular rate and rhythm. No clicks, murmurs, gallops, or rubs. Pulses 2+ in bilateral dorsalis pedis, posterior tibialis, and radial areas. Respiratory: There are slight crackles in the left lower lobe, which have been there since admission and not gotten worse. Good air exchange bilateral. Abdomen: Soft, nontender, and nondistended. No tenderness with palpation over the epigastric area. Bowel sounds present and normoactive in all 4 quadrants. No hepatosplenomegaly. No abdominal bruits auscultated. Genitourinary: The patient complaints of persistent suprapubic tenderness which is unchanged since admission. No CVA tenderness. Skin: Clean, dry, and intact. The patient has nonblanchable erythema on her bilateral heels, which has been improving after they identified the patient had her heels raised off the bed. Neuro: Cranial nerves II through XII grossly intact except for esotropia of the right eye, which the patient states is normal, not a new finding. No other focal deficits. Alert and oriented x3. Psychiatric: The patient is pleasant and cooperative, though she expresses feelings of depression. LABORATORY DATA: On 08/16/17, white blood cell count 6.7, hemoglobin 10.0, hematocrit 30.1, MCV 76, MCH 24, RDW 20, MPV 7. Sodium 138, potassium 3.7, chloride 107, carbon dioxide 23, anion gap 8, BUN 6, creatinine 0.58, glucose 93 , calcium 8.5. Other laboratory values of note on admission albumin 3.1, prealbumin 12, TSH 3.17. DISCHARGE PLAN: The patient will be discharged to her daughter's home for additional support. The patient was not thriving in the [facility] and elected to leave. The patient will also have the support of her other daughter. We discussed at length patient's nutritional status and strategies to help increase her calorie intake including smoothies and Boost or Ensure products. The patient is lactose intolerant and it was discussed the use of Boost or Ensure clear products. The patient should encourage to eat high calorie foods as much as possible. The patient should also have adequate hydration. The patient should follow up with her primary care provider within 1 week for general medical management and to ensure she has improved from her current clinical condition. The patient was persistently orthostatic while in the hospital; however, after fluid repletion she was no longer symptomatic. The patient should be monitored for fall risk. The patient should be turned and positioned while in the bed at home as frequently as possible. This was discussed with them and they were in agreement. Followup of the patient's pulmonary nodule was also discussed as well as the possibility this was neoplastic process which may be leading to her weight loss. The patient should follow up with Dr. Dennis or through her primary care provider with a repeat CT scan on a nonemergent basis. The patient should continue with her ciprofloxacin for 5 additional doses. The patient should have a bowel regimen as prescribed. We discussed with the patient to avoid NSAIDs as she had symptoms consistent with a gastric ulcer or gastritis possibly NSAID induced. The patient's pantoprazole was doubled and she should take a hiatus from NSAIDs to see if this improves. The patient should continue to use Maalox on an as needed basis as this seems to help. The patient also had Soma and lorazepam ordered which she said helped with her epigastric pain and also with her chronic low back pain. The patient should engage in activity as tolerated with the goal of returning a functional status particularly to her right hand, which recently underwent surgery. The patient should follow up with her orthopedist as scheduled. The patient should have a regular unrestricted diet. The patient should return to the hospital for any alarming symptoms such as chest pain, shortness of breath. TIME SPENT: Approximately 60 minutes were spent on this discharge, 30 of which was spent [id number] with the patient obtaining history and physical and discussing treatment plan. BINU KAHN [id number]/CPS #: [id number] ROBERT
== END 2017-08-17 13:10 | disposition home health service (06) | DRG 312 ==
LOC: ED 21:46 → MEDTELE 08-14 04:36 → MED 08-14 19:54 → OBSVTOIN 08-16 10:33
PROVIDERS: ADMIT Pediatrics; ATTEND Internal Medicine
DX: I95.1 Orthostatic hypotension (principal); J90 Pleural effusion, not elsewhere classified; E86.0 Dehydration; J44.9 Chronic obstructive pulmonary disease, unspecified; M41.9 Scoliosis, unspecified; N39.0 Urinary tract infection, site not specified; Z68.1 Body mass index [BMI] 19.9 or less, adult; R63.4 Abnormal weight loss; H40.9 Unspecified glaucoma; K59.00 Constipation, unspecified; Z66 Do not resuscitate; M54.89 Other dorsalgia; M81.0 Age-related osteoporosis without current pathological fracture; K44.9 Diaphragmatic hernia without obstruction or gangrene; R91.1 Solitary pulmonary nodule; R33.9 Retention of urine, unspecified; Z79.1 Long term (current) use of non-steroidal anti-inflammatories (NSAID); Z79.899 Other long term (current) drug therapy; Z88.5 Allergy status to narcotic agent; Z88.2 Allergy status to sulfonamides; Z91.011 Allergy to milk products; Z87.891 Personal history of nicotine dependence
CPT/HCPCS: 36415; 71045; 74177; 76700; 80048; 80053; 84134; 84443; 85025; 87070; 87086; 87205; 87641; 93005; 94640; 94760; 96360; 96361; 99284; A9270-GY; G0378; J1644; Q9967

== ENCOUNTER 2018-02-21 09:58 | Inpatient (IN) | payer MEDICARE, OTHER ==
--- NOTE | 2018-02-21 10:26 | ED ---
Abdominal Pain/Female - HPI Summary HPI Summary: This is scribe Heena Cristobal documenting for attending Sanya Enriquez MD. Pt is an 87 y/o F BIBA [facility]/o abdominal pain since 8:00 today. She states she has had intermittent nausea for a while, but today it became worse and she started to also have vomiting and abdominal pain. The pain is described as 7/10 in severity and sharp in quality. Pt took an Aleve for the pain, and was given Zofran by EMS. She also c/o constipation recently, and states that disimpacting herself is the only way to produce a BM. Pt denies any CP or SOB. PMHx glaucoma, arthritis, COPD, AMS, and stomach ulcers. Pt is a former smoker. - History of Current Complaint Chief Complaint: EDAbdPain Stated Complaint: VOMITTING Time Seen by Provider: 02/21/18 10:07 Hx Obtained From: Patient, EMS Onset/Duration: Sudden Onset, Lasting Hours - 8:00, Resolved Severity Currently: Moderate Pain Intensity: 7 Pain Scale Used: 0-10 Numeric Location: Discrete At: LLQ, Epigastric Radiates: No Character: Sharp Aggravating Factor(s): Nothing Alleviating Factor(s): Medications - Zofran Associated Signs and Symptoms: Positive: Constipation, Nausea, Vomiting Allergies/Adverse Reactions: Allergies Allergy/AdvReac Type Severity Reaction Status Date / Time codeine Allergy Abdominal Verified 02/21/18 10:08 Pain lactose Allergy GI Upset Verified 02/21/18 10:08 Sulfa (Sulfonamide Allergy Swelling Verified 02/21/18 10:08 Antibiotics) PMH/Surg Hx/FS Hx/Imm Hx Endocrine/Hematology History: Denies: Hx Anticoagulant Therapy, Hx Bone Marrow Disease, Hx Diabetes, Hx Sickle Cell Disease, Hx Thyroid Disease, Hx Anemia Cardiovascular History: Reports: Other Cardiovascular Problems/Disorders - RIGHT ANKLE SWELLING FOR PAST FEW MONTHS Denies: Hx Deep Vein Thrombosis, Hx Embolism, Hx Hypertension Respiratory History: Reports: Hx Chronic Obstructive Pulmonary Disease (COPD), Hx Pneumonia, Other Respiratory Problems/Disorders - HX PNEUMONIA X 2, [employer] SMO[employer]ER 50+ YRS Denies: Hx Pulmonary Embolism GI History: Reports: Hx Gastroesophageal Reflux Disease, Hx Hiatal Hernia - REPAIRED 4 YRS AGO, Hx Ulcer Denies: Other GI Disorders History: Reports: Other Problems/Disorders - FREQUENCY, WEARS DEPENDS Denies: Hx Renal Disease Musculoskeletal History: Reports: Hx Arthritis - KNEES, GENERALIZED, Hx Bursitis - LEFT ELBOW, OK NOW, Hx Osteoporosis, Other Musculoskeletal History - OSTEOPOROSIS, AMBULATES WITH A WALKER, SEE BELOW Sensory History: Reports: Hx Glaucoma, Hx Vision Problem Denies: Hx Cataracts, Hx Contacts or Glasses, Hx Hearing Aid Opthamlomology History: Reports: Hx Glaucoma, Hx Vision Problem Denies: Hx Cataracts, Hx Contacts or Glasses Neurological History: Denies: Hx Headaches, Hx Migraine, Hx Seizures, Hx Spinal Cord Injury Psychiatric History: Reports: Hx Anxiety, Hx Depression - Cancer History Hx Chemotherapy: No - Surgical History Surgery Procedure, Year, and Place: LEFT MASTOIDITIS AN INFANT. ORIF LEFT HIP- 1984- [facility]. LEFT BREAST BX- 30 Y[address] AGO- [facility]. MACULAR HOLE RIGHT EYE- 2001- [facility]. HIATAL HERNIA REPAIR- 2012- [facility] Hx Anesthesia Reactions: No Infectious Disease History: No Infectious Disease History: Denies: Hx Hepatitis, Traveled Outside the [place] in Last 30 Days - Family History Known Family History: Positive: Cardiac Disease, Other - Lung CA - Social History Alcohol Use: None Substance Use Type: Reports: None Hx Tobacco Use: Yes Smoking Status (MU): Former Smoker Type: Cigarettes Amount Used/How Often: 1 PPD FOR 50+ YRS Length of Time of Smoking/Using Tobacco: 50+ YRS Have You Smoked in the Last Year: No Review of Systems Negative: Chest Pain Negative: Shortness Of Breath Positive: Abdominal Pain, Vomiting, Nausea - Resolved, Other - Constipation All Other Systems Reviewed And Are Negative: Yes Physical Exam - Summary Physical Exam Summary: VITAL SIGNS: Reviewed. GENERAL: Patient is an elderly and fragile FEMALE who is lying comfortable in the stretcher. Patient is not in any acute respiratory distress. HEAD AND FACE: No signs of trauma. No ecchymosis, hematomas or skull depressions. No sinus tenderness. EYES: PERRLA, EOMI x 2, No injected conjunctiva, no nystagmus. EARS: Hearing grossly intact. Ear canals and tympanic membranes are within normal limits. MOUTH: Oropharynx within normal limits. NECK: Supple, trachea is midline, no adenopathy, no JVD, no carotid bruit, no c- spine tenderness, neck with full ROM. CHEST: Symmetric, no tenderness at palpation LUNGS: Clear to auscultation bilaterally. No wheezing or crackles. CVS: Regular rate and rhythm, S1 and S2 present, no murmurs or gallops appreciated. ABDOMEN: Soft, non-tender. No signs of distention. No rebound no guarding, and no masses palpated. Bowel sounds are decreased. No nausea. EXTREMITIES: FROM in all major joints, no edema, no cyanosis or clubbing. NEURO: Alert and oriented x 3. No acute neurological deficits. Speech is normal and follows commands. SKIN: Dry and warm RECTAL: External hemorrhoids. Empty vault. Normal sphincter tone. No blood. Triage Information Reviewed: Yes Vital Signs On Initial Exam: Initial Vitals Temp Pulse Resp BP Pulse Ox 97.3 F 78 18 178/90 100 02/21/18 10:03 02/21/18 10:03 02/21/18 10:03 02/21/18 10:03 02/21/18 10:03 Vital Signs Reviewed: Yes Diagnostics - Vital Signs Vital Signs Temp Pulse Resp BP Pulse Ox 02/21/18 10:03 97.3 F 78 18 178/90 100 - Laboratory Result Diagrams: 02/21/18 10:24 02/21/18 10:24 Lab Statement: Any lab studies that have been ordered have been reviewed, and results considered in the medical decision making process. - Radiology Abd XR Xray Interpretation: Positive (See Comments) - 10:16 Large volume of retained formed stool within the colon. No bowel dilatation to indicate bowel obstruction. ED physician reviewed radiology report. Radiology Interpretation Completed By: Radiologist - CT CT A/P CT Interpretation Completed By: Radiologist - 11:35 Advanced COPD. Coronary artery calcifications. Unchanged mild prominence of the intrahepatic bile ducts. Pneumobilia at the common bile duct favoring previous sphincterotomy. No acute pathologic process of the alimentary tract evident. Negative for obstructive uropathy. No significant change in T12 and L1 biconcave osteoporotic compression fractures. No new compression fractures evident. ED physician reviewed radiology report. - EKG 10:59 Cardiac Rate: NL - 79 bpm EKG Rhythm: Sinus Rhythm ST Segment: Normal EKG Comparison: No Significant Change - Same as one done on 08/13/17. Re-Evaluation - Re-Evaluation First Eval Re-Evaluation Time: 15:09 Change: Unchanged Comment: Performed rectal exam. Abdominal Pain Fem Course/Dx - Course Course Of Treatment: This patient is an 87-year-old female who presents to the emergency department with a chief complaint of constipation, abdominal pain, nausea and vomiting. The patient reports that she is having the symptoms for the last couple days today has been the worsen. This results without any significant abnormality except for a and normocytic normochromic anemia, magnesium 1.8, urinalysis is contaminated. We will send urine for urine cultures. Abdomen x-ray impression: Large volume of retained form stool within the colon. No bowel was dilation to indicate bowel obstruction. The patient began to have abdominal pain therefore decided to do an abdominal pelvic CT to rule out obstruction or any other intra-abdominal pathology. Abdominopelvic CT impression: Advanced COPD, coronary artery calcifications, unchanged mild prominent of the intrahepatic bile ducts. No acute pathologic process of the GI tract. In the ED course the patient was given IV fluids, MiraLAX, magnesium sitewide, lactulose and Fleet enema. The patient has not been able to have a bowel movement. She reports that she lives on and she is unable to help herself. Since the patient is losing a lot of weight unable to eat have nausea and vomiting I discussed the findings and test results with Dr. Greer from the hospital services who accepted the patient for admission. The patient is hemodynamically stable alert and oriented 3. - Diagnoses Provider Diagnoses: Constipation - Provider Notifications Discussed Care Of Patient With: Brenton Greer Time Discussed With Above Provider: 16:48 Instructed by Provider To: Admit As Inpatient - Dr. Greer accepts pt for admission. Discharge - Sign-Out/Discharge Documenting (check all that apply): Patient Departure - Admit - Discharge Plan Condition: Stable Disposition: HOME Referrals: Brittney Connor MD [Primary Care Provider] - - Billing Disposition and Condition Condition: STABLE Disposition: Home
[2018-02-21] MEDS ORDERED: NS 0.9% 1000 ML* 1,000 ML IV SCH (10:30)
[2018-02-21 10:53] LABS: EGFR Non-African American 56.6 (>60)
[2018-02-21 11:02] LABS: ABS Basophils 0 10^3/ul (0-0.2); ABS Eosinophils 0.3 10^3/ul (0-0.6); ABS Lymphocytes 1.6 10^3/ul (1.0-4.8); ABS Monocytes 0.2 10^3/ul (0-0.8); ABS Neutrophils 4.6 10^3/ul (1.5-7.7); ABS Nucleated RBC 0 10^3/ul; Eosinophil % 5.1 % (0-6); Hematocrit 31 % (35-47); Hemoglobin 9.6 g/dl (12.0-16.0); Lymphocyte % 23.2 % (25-47); Mean Corpuscular HGB Conc 31 g/dl (31-36); Mean Corpuscular Hemoglobin 25 pg (27-31); Mean Corpuscular Volume 80 fL (80-97); Mean Platelet Volume 6.9 um3 (7.4-10.4); Nucleated Red Blood Cells % 0; Platelet Count 312 10^3/ul (150-450); Red Blood Count 3.88 10^6/ul (4.00-5.40); Red Cell Distribution Width 18 % (10.5-15); White Blood Count 6.7 10^3/ul (3.5-10.8)
--- NOTE | 2018-02-21 12:05 | RAD ---
Indication: Abdominal pain with nausea and vomiting. Constipation and diarrhea. Comparison: August 16, 2017 CT. Technique: Supine view of the abdomen. Report: Large volume of formed stool present throughout the colon. No dilated bowel loops evident. Vascular calcifications. Negative for mass effect. Grossly clear visualized lung bases. IMPRESSION: #. Large volume of retained formed stool within the colon. No bowel dilatation to indicate bowel obstruction.
[2018-02-21] MEDS ORDERED: Iodixanol* (CONTRAST) 320 MG/ML 100 ML SDV IV ONE (13:34)
[2018-02-21 13:55] LABS: Urine Appearance Clear; Urine Blood Negative (Negative); Urine Color Yellow; Urine Ketones Negative (Negative); Urine Protein Negative (Negative); Urine Red Blood Cell Trace(0-2/hpf) (Absent); Urine Specific Gravity 1.015 (1.010-1.030); Urine Urobilinogen Negative (Negative); Urine White Blood Cell 2+(11-20/hpf) (Absent)
--- NOTE | 2018-02-21 14:46 | RAD ---
INDICATION: Nausea, vomiting, abdominal pain. COMPARISON: Abdomen radiograph of the same date and August 16, 2017 CT. TECHNIQUE: Multidetector CT images were obtained from the lung bases to the ischial tuberosities with 47 mL Visipaque 320 IV and oral contrast. Multiplanar reformation. REPORT: Visualized thorax is remarkable for severely elevated lung volumes and advanced emphysema. Negative for cardiomegaly. Coronary artery calcifications. Small hiatal hernia. Unchanged mild prominence of the intrahepatic bile ducts. Pneumobilia at the common bile duct favoring previous sphincterotomy. Unremarkable gallbladder is visualized inferior to the RIGHT hepatic lobe reference image 36. No focal hepatic lesions evident. Moderately atrophic pancreas without suspicious finding. Unremarkable spleen. Enteric contrast extends to the proximal transverse colon large volume of stool present in the transverse through sigmoid colon. Negative for rectal distention with stool. Negative for dilated small bowel loops. While the appendix is not discretely visualized, there is no inflammatory change in the right lower quadrant or region of the tip of the cecum to suggest presence of an acute inflammatory process. Negative for ascites, free air, hernias. Unremarkable adrenal glands. Mildly atrophic kidneys with symmetric nephrograms and pyelograms. Negative for suspicious focal renal lesions or hydronephrosis. No suspicious finding along the course of the nondilated ureters. Unremarkable partially distended urinary bladder. Atrophic uterus. Unremarkable adnexal regions. Negative for lymphadenopathy. Extensive atherosclerotic plaque of normal diameter abdominal aorta and iliac arteries. Physiologic distention of the IVC. Negative for superficial or deep soft tissue hematoma. Artifact from internal fixation hardware at the LEFT hip. Negative for suspicious focal osseous lesions. No significant change in T12 and L1 biconcave osteoporotic compression fractures. No new compression fractures evident. IMPRESSION: #. Advanced COPD. #. Coronary artery calcifications. #. Unchanged mild prominence of the intrahepatic bile ducts. Pneumobilia at the common bile duct favoring previous sphincterotomy. #. No acute pathologic process of the alimentary tract evident. #. Negative for obstructive uropathy. #. No significant change in T12 and L1 biconcave osteoporotic compression fractures. No new compression fractures evident.
[2018-02-21] MEDS ORDERED: Magnesium CITRATE* 300 ML BTL PO ONE (14:57)
[2018-02-21] MEDS ORDERED: Polyethylene Glycol 3350* 17 GM PACKET PO PRN (14:57)
[2018-02-21] MEDS ORDERED: Sodium Phosphate ADULT ENEMA* 118 ml bottle PR ONE (15:00)
[2018-02-21] MEDS ORDERED: Ondansetron INJ* 2 MG/ML VIAL IV PRN (17:36)
[2018-02-21] MEDS ORDERED: Acetaminophen TAB* 325 MG PO PRN (17:36)
[2018-02-21] MEDS ORDERED: Al Hydrox/Mg Hydrox/Simet LIQ* 30 ML UDC PO PRN (17:36)
[2018-02-21] MEDS ORDERED: Albuterol 2.5 MG/3 ML NEB.SOL* (0.083%) INH PRN (17:36)
[2018-02-21] MEDS ORDERED: NF:Olopatadine 0.2% (NF) 1 DROP BTL BOTH EYES PRN (17:42)
[2018-02-21] MEDS ORDERED: Albuterol HFA INHALER* 8 gm MDI INH PRN (17:42)
[2018-02-21] MEDS ORDERED: Phenazopyridine TAB* 100 MG PO PRN (17:42)
[2018-02-21] MEDS ORDERED: Carisoprodol TAB* 350 MG PO PRN (17:42)
[2018-02-21] MEDS ORDERED: traMADol TAB* 50 MG PO PRN (17:46)
[2018-02-21] MEDS ORDERED: Sodium Phosphate ADULT ENEMA* 118 ml bottle PR PRN (17:47)
--- NOTE | 2018-02-21 20:02 | HP ---
AMENDED REPORT NOW INCLUDES COSIGNER DESIGNATION - ESIGNED BEFORE ADJUSTMENT CC: Dr. Connor* ADMISSION HISTORY AND PHYSICAL: DATE OF ADMISSION: 02/21/18 PATIENT OF ATTENDING HOSPITALIST: Brenton Greer MD * (DICTATED BY BINU CASTANO) PRIMARY CARE PHYSICIAN: Brittney Connor MD CHIEF COMPLAINT: 1. Abdominal pain. 2. Constipation. 3. Weakness. HISTORY OF PRESENT ILLNESS: Mrs. Plascencia is a pleasant 87-year-old female who carries past medical history significant for hypertension, COPD, glaucoma, and chronic constipation, who presented to the emergency room earlier this morning with complaints of worsening abdominal pain, distention and chronic constipation. She also notes that she has not been feeling well over the past few weeks. She described it as vague, generalized weakness and inability to ambulate very well. She has had a couple of falls at home in the past couple of weeks with no significant injuries or head trauma. She was a resident of [facility] for a period of time; however, she [place] the [place] [facility] to stay with one of her daughters. However, she thinks that she gradually needs more and more care and been unable to take care of herself on a regular basis. She also has history of chronic constipation for which she has been struggled on and off for the past few months. She had tried to increase her fiber intake and takes stool softeners and laxative on occasion. Unfortunately, she occasionally failed to have a bowel movement unless she manually disimpacts herself. She developed increasing abdominal distention and pain over the past couple of days and presented to the emergency room today for further evaluation. She had laboratory workup that revealed normal white count and had chemistry panel that showed slightly elevated BUN of 30 compared to her baseline of 6 or 7 consistent with probable dehydration. She also had an abdominal x-ray that showed a large amount of retained stool. CT scan of the abdomen and pelvis was done that revealed no evidence of free air or any significant pathology with the exception of retained amount of stools. Multiple attempts in the ED were done including Fleet Enemas, MiraLAX, and milk of magnesia that unfortunately failed to resolve her symptoms. She was able to pass a small amount of stool and continued to have weakness upon standing up. Given her ongoing symptoms and that overall declining on her health, we were asked to see the patient for further evaluation and to discuss possible admission for social work professor consult and possible placement to [facility]. PAST MEDICAL HISTORY: As mentioned above, significant for: 1. COPD. 2. Glaucoma. 3. Chronic back pain. 4. Degenerative disease. 5. Chronic constipation. PAST SURGICAL HISTORY: She had a right hand surgery done in the remote past. CURRENT MEDICATIONS: Her medications at home include: 1. Maalox regular strength 30 mL q.6 hours as needed for indigestion. 2. Lorazepam 0.5 mg p.o. q.6 hours as needed for anxiety. 3. Olopatadine 0.2% eye drops, 1 drop in each eye once daily. 4. Tylenol 650 mg p.o. daily. 5. Albuterol inhaler MDI 1 puff inhaled q.4 hours as needed for shortness of breath. 6. Betaxolol 1 drop in both eyes once daily. 7. Soma 350 mg 1 tablet daily. 8. Vitamin D3 once 5000 units p.o. daily. 9. Cipro 500 mg p.o. b.i.d. that was taken for a period of week back in August , but she is no longer on it. 10. Colace 100 mg p.o. b.i.d. 11. Milk of magnesia 30 mL p.o. b.i.d. 12. Remeron 7.5 mg p.o. q.p.m. 13. Pantoprazole 40 mg p.o. daily. 14. Pyridium 100 mg p.o. daily. 15. Senokot 1 tablet p.o. daily. 16. Spiriva 1 cap inhaled once daily. ALLERGIES: Multiple including CODEINE, LACTOSE, and SULFA. SOCIAL HISTORY: The patient currently lives with her daughter, Edna, who carries the healthcare proxy. She resided for a period of time at [facility] before she went back home. She is a former smoker who quit 15 years ago, used to smoke a pack and a half per day for a long time. She denies alcohol or illicit drug use. Her code status is confirmed and remained DNR and DNI and MOLST form was updated per her primary care. FAMILY HISTORY: Reviewed and noncontributory. REVIEW OF SYSTEMS: See HPI, otherwise 14-point review of systems were done and essentially negative. PHYSICAL EXAMINATION GENERAL: She is a pleasant, frail, elderly female, in no acute distress or discomfort at the time of admission. VITAL SIGNS: Revealed a blood pressure of 141/66, temperature of 97.3, pulse of 77, respirations of 18 with O2 sats of 100% on room air. HEENT: Head is normocephalic, atraumatic. Sclerae anicteric. PERRLA. EOMs intact. Oropharynx is pink and moist. NECK: Supple. Trachea midline. No cervical adenopathy or thyromegaly. LUNGS: Clear to auscultation bilaterally. There are decreased breath sounds in all macdonald. HEART: Regular rate and rhythm. Normal S1 and S2 without rubs, murmurs, or gallops. BACK: With normal curvature. No CVA tenderness. ABDOMEN: Soft, round, and moderately distended. There is minimal tenderness noted at the left lower quadrant and mid abdomen, but no guarding, rigidity, or rebound tenderness. There is no tympany or any signs of acute abdomen. No hernias, masses, or hepatosplenomegaly. RECTAL: Exam deferred at this time. EXTREMITIES: Without cyanosis, clubbing, or edema. NEUROLOGIC: She is alert and oriented x3 and cooperative. Tongue is midline. Motor exam and sensation is grossly intact. LABORATORY WORKUP: CBC with white count of 6,000, hemoglobin 9.6, hematocrit 31, and platelets of 312. Chemistry with sodium of 136, potassium 4.4, chloride 102, CO2 of 27, BUN of 30 and creatinine of 0.9, her glucose was 181. Lactic acid 1.7. Magnesium 1.8. LFTs within normal limits and C-reactive protein normal. Her urinalysis did not show any significant findings for UTI; however, her culture is pending at this time. ASSESSMENT AND PLAN: An 87-year-old female with past medical history significant for chronic obstructive pulmonary disease, glaucoma, chronic back pain, and chronic constipation who presented to emergency room with increased abdominal distention and intermittent pain secondary to chronic constipation who will be admitted under medical services for the followin. Abdominal pain and distention. The patient will be admitted to the medical floor. Continue management of her constipation with [id number] stool softener and laxative as well as p.r.n. Fleet Enemas. We will obtain physical therapy given her recent episodes of weakness and inability to ambulate and we will also obtain social work professor consultation to consider probable placement to a [place] [facility]. The patient has been unable to care for herself, since she moved to her daughter's house who is currently out of town, but I did speak with her other daughter, Carol, who is in agreement with the plans. 2. Nausea and vomiting. Seems to be resolved at the time of admission and I anticipate it was related to her constipation. Her CT scan and abdominal x- rays showed no evidence of small bowel obstruction. She did not have any frequent nausea and vomiting to justify placement of NG tube at this time; however, if she starts to have symptoms, we might have to consider NG decompression; however, again I think all her symptoms are related to her constipation with no evidence of small bowel obstruction. 3. History of urinary retention. The patient has no complaints and we will await her urine culture. 4. Chronic obstructive pulmonary disease. We will continue her inhaler regimen and add albuterol nebulizer as needed. 5. Anxiety, depression. We will continue her lorazepam as prescribed. 6. FEN. We will place her on a regular diet and we will also replace her electrolytes as needed. 7. DVT prophylaxis. The patient is at high risk. We will cover her with heparin subcu. 8. Code status confirmed to be DNR and MOLST form is updated by her primary care physician. TIME SPENT: Approximately 60 minutes were spent admitting this patient with greater than 50% taking history and performing physical exam. I have discussed the plan of care with my attending who agreed and plan to follow her up accordingly. BINU CASTANO [id number]/CPS #: [id number] ROBERT
[2018-02-21] MEDS: Betaxolol-S 0.25%* 10 ML BTL BOTH EYES SCH (21:20)
[2018-02-21] MEDS: Heparin VIAL(*) 5000 UNITS/ML VIAL (FIVE THOUSAND) SUBCUT SCH (21:22)
[2018-02-21] MEDS: Omeprazole CAP* 20 MG PO SCH (21:23)
[2018-02-21] MEDS: Mirtazapine TAB* 15 MG PO SCH (21:23)
[2018-02-21] MEDS: Docusate CAP* 100 MG PO SCH (21:24)
[2018-02-21] MEDS: LORazepam TAB(*) 0.5 MG PO PRN (21:34)
[2018-02-22] MEDS: NS 0.9% 1000 ML* 1,000 ML IV SCH ×2 (01:23→17:33)
[2018-02-22] MEDS: Heparin VIAL(*) 5000 UNITS/ML VIAL (FIVE THOUSAND) SUBCUT SCH ×3 (05:58→20:32)
[2018-02-22 07:16] LABS: ABS Basophils 0 10^3/ul (0-0.2); ABS Eosinophils 0.4 10^3/ul (0-0.6); ABS Lymphocytes 1.9 10^3/ul (1.0-4.8); ABS Monocytes 0.7 10^3/ul (0-0.8); ABS Neutrophils 2.8 10^3/ul (1.5-7.7); ABS Nucleated RBC 0 10^3/ul; Eosinophil % 7.5 % (0-6); Hematocrit 24 % (35-47); Hemoglobin 7.9 g/dl (12.0-16.0); Mean Corpuscular HGB Conc 32 g/dl (31-36); Mean Corpuscular Hemoglobin 26 pg (27-31); Mean Corpuscular Volume 80 fL (80-97); Mean Platelet Volume 6.6 um3 (7.4-10.4); Nucleated Red Blood Cells % 0; Platelet Count 235 10^3/ul (150-450); Red Blood Count 3.05 10^6/ul (4.00-5.40); Red Cell Distribution Width 18 % (10.5-15); White Blood Count 5.9 10^3/ul (3.5-10.8)
[2018-02-22] MEDS: Tiotropium CAP.INH* CAP.INH/18 MCG (USE ORDER SET !) INH SCH (07:29)
[2018-02-22 07:36] LABS: EGFR Non-African American 70.2 (>60)
[2018-02-22] MEDS: Polyethylene Glycol 3350* 17 GM PACKET PO SCH (10:40)
[2018-02-22] MEDS: Docusate CAP* 100 MG PO SCH ×2 (10:40→19:41)
[2018-02-22] MEDS: Omeprazole CAP* 20 MG PO SCH ×2 (10:40→19:40)
--- NOTE | 2018-02-22 11:32 | PN ---
Subjective Date of Service: 02/22/18 Interval History: Mrs. Plascencia is doing better today. She denies abdominal pain, still feels bloated, no BMs since ED visit last night. Denies nausea or vomiting, tolerating diet, had a "good breakfast". She wishes to stay comfortable and declines any interventions if indicated. She had a colonoscopy years ago. Her H/ H dropped overnight, likely secondary to hemodilution, denies melena in the past. Did her PT earlier today, ambulated a little using her walker, still feels weak. She has no new complaints today. Family History: Unchanged from Admission Social History: Unchanged from Admission Past Medical History: Unchanged from Admission Objective Active Medications: Acetaminophen (Tylenol Tab*) 650 mg PO Q4H PRN PRN Reason: FEVER/PAIN Al Hydrox/Mg Hydrox/Simethicone (Maalox Plus*) 30 ml PO Q6H PRN PRN Reason: INDIGESTION Albuterol (Ventolin 2.5 Mg/3 Ml Neb.Roro*) 2.5 mg INH [id number] AWAKE PRN PRN Reason: sob/wheezing Albuterol (Ventolin Hfa Inhaler*) 1 puff INH Q4H PRN PRN Reason: SOB/WHEEZING Betaxolol HCl (Betoptic-S 0.25%*) 1 drop BOTH EYES QPM [facility] Last Admin: 02/21/18 21:20 Dose: 1 drp Carisoprodol (Soma Tab*) 350 mg PO DAILY PRN PRN Reason: SPASMS - BACK Docusate Sodium (Colace Cap*) 100 mg PO BID [facility] Last Admin: 02/22/18 10:40 Dose: 100 mg Heparin Sodium (Porcine) (Heparin Vial(*)) 5,000 units SUBCUT Q8HR [facility] Last Admin: 02/22/18 05:58 Dose: Not Given Sodium Chloride (Ns 0.9% 1000 Ml*) 1,000 mls @ 175 mls/hr IV PER RATE [facility] Last Admin: 02/21/18 10:42 Dose: 175 mls/hr Sodium Chloride (Ns 0.9% 1000 Ml*) 1,000 mls @ 75 mls/hr IV PER RATE [facility] Last Admin: 02/22/18 01:23 Dose: 75 mls/hr Lorazepam (Ativan Tab(*)) 0.5 mg PO Q6H PRN PRN Reason: ANXIETY Last Admin: 02/21/18 21:34 Dose: 0.5 mg Magnesium Hydroxide (Milk Of Magnesia Liq*) 30 ml PO Q4H PRN PRN Reason: CONSTIPATION Mirtazapine (Remeron Tab*) 7.5 mg PO QPM [facility] Last Admin: 02/21/18 21:23 Dose: 7.5 mg Olopatadine HCl (Pataday 0.2% (Nf)) 1 drop BOTH EYES QPM PRN PRN Reason: Allergy Symptoms Omeprazole (Prilosec Cap*) 20 mg PO BID [facility] Last Admin: 02/22/18 10:40 Dose: 20 mg Ondansetron HCl (Zofran Inj*) 4 mg IV Q4H PRN PRN Reason: NAUSEA/VOMITING Phenazopyridine HCl (Pyridium Tab*) 100 mg PO DAILY PRN PRN Reason: urinary urgency Polyethylene Glycol/Electrolytes (Miralax*) 17 gm PO DAILY [facility] Last Admin: 02/22/18 10:40 Dose: 17 gm Sodium Biphosphate/Sodium Phosphate (Fleet Enema*) 1 bottle [place] DAILY PRN PRN Reason: CONSTIPATION Tiotropium [place] (Spiriva Cap.Inh*) 1 cap INH QAM [facility] Last Admin: 02/22/18 07:29 Dose: 1 cap Tramadol HCl (Ultram*) 50 mg PO Q8H PRN PRN Reason: PAIN Vital Signs - 8 hr 02/22/18 02/22/18 02/22/18 03:32 07:30 07:45 Temperature 99.3 F 99.0 F Pulse Rate 69 82 67 Respiratory 20 14 18 Rate Blood Pressure 138/53 128/39 (mmHg) O2 Sat by Pulse 100 90 94 Oximetry Oxygen Devices in Use Now: Nasal Cannula Appearance: Frail elderly female, comfortable in bed, and in NAD. Eyes: No Scleral Icterus, PERRLA Ears/Nose/Mouth/Throat: Clear Oropharnyx, Mucous Membranes Moist Neck: NL Appearance and Movements; NL JVP, Trachea Midline Respiratory: Symmetrical Chest Expansion and Respiratory Effort, Clear to Auscultation Cardiovascular: NL Sounds; No Murmurs; No JVD, RRR Abdominal: - - Abdomen with mild distension, appears slightly improved compared to yesterday. No tenderness, guarding or rigidity. No hernias or palpable masses. Extremities: No Edema Neurological: Alert and Oriented x 3 Nutrition: Taking PO's Result Diagrams: 02/22/18 06:49 02/22/18 06:49 Additional Lab and Data: . Microbiology and Other Data: . Diagnostic Imaging: Patient Name: WASHINGTON PLASCENCIA Medical Record#: [id number] Ordering Physician: Sanya Enriquez MD Acct.#: [id number] : 1930 Age: 87 Sex: F Location: EMERGENCY DEPARTMENT Exam Date: 02/21/18 1135 ADM Status: REG ER Order Information: CT ABD/PEL W Accession Number: [id number] CPT: 77200 INDICATION: Nausea, vomiting, abdominal pain. COMPARISON: Abdomen radiograph of the same date and August 16, 2017 CT. IMPRESSION: #. Advanced COPD. #. Coronary artery calcifications. #. Unchanged mild prominence of the intrahepatic bile ducts. Pneumobilia at the common bile duct favoring previous sphincterotomy. #. No acute pathologic process of the alimentary tract evident. #. Negative for obstructive uropathy. #. No significant change in T12 and L1 biconcave osteoporotic compression fractures. No new compression fractures evident. <Electronically signed by Sanya Siu MD in [facility]> 02/21/18 1443 EKG Data: . Assess/Plan/Problems-Billing Assessment: An 87 y/o female with PMH COPD, glaucoma, chronic back pain and chronic constipation, who presented to ED with generalized weakness, abdominal distension and constipation, notes being unable to care for self at home and would like to be considered to placement at SNF. - Patient Problems (1) Abdominal pain Current Visit: Yes Status: Acute Comment: - Improved overnight - Caused by chronic constipation, CT did not suggest any acute process (2) Constipation Current Visit: Yes Status: Acute Comment: - Chronic issues due to decreased mobility, advanced age and chronic back pain - Continue laxavties, stool softners and enemas prn - Check stool for occult blood, Last colonoscopy >10 years ago (3) Weakness generalized Current Visit: Yes Status: Acute Comment: - Patient overall health abd activity level has been declining - Await social sciences department chair consult for SNF placement (4) Nausea & vomiting Current Visit: Yes Status: Acute Comment: - Resolved, tolerating diet - No evidence of SBO on CT (5) Chronic back pain Current Visit: Yes Status: Acute Comment: - Continue supportive care and pain meds as needed (6) COPD (chronic obstructive pulmonary disease) Current Visit: No Status: Chronic Comment: - Continue sprivia - Albuterol as needed for SOB (7) Glaucoma Current Visit: No Status: Chronic Comment: - Continue home eye drops (8) DVT prophylaxis Current Visit: No Status: Acute Comment: - Heparin SubQ (9) DNR (do not resuscitate) Current Visit: No Status: Acute Status and Disposition: Inpatient. Anticipate discharge to SNF once bed available.
[2018-02-22] MEDS: Magnesium Hydroxide LIQ* 30 ML UDC PO PRN (17:26)
[2018-02-22] MEDS: Betaxolol-S 0.25%* 10 ML BTL BOTH EYES SCH (17:26)
[2018-02-22] MEDS: Mirtazapine TAB* 15 MG PO SCH (17:27)
[2018-02-22] MEDS: LORazepam TAB(*) 0.5 MG PO PRN (19:41)
[2018-02-23] MEDS: Heparin VIAL(*) 5000 UNITS/ML VIAL (FIVE THOUSAND) SUBCUT SCH ×3 (05:00→20:38)
[2018-02-23] MEDS: Omeprazole CAP* 20 MG PO SCH ×2 (08:51→21:02)
[2018-02-23] MEDS: Polyethylene Glycol 3350* 17 GM PACKET PO SCH (08:51)
[2018-02-23] MEDS: Docusate CAP* 100 MG PO SCH ×2 (08:51→21:02)
[2018-02-23] MEDS: Magnesium Hydroxide LIQ* 30 ML UDC PO PRN (08:52)
[2018-02-23] MEDS: Sodium Phosphate ADULT ENEMA* 118 ml bottle PR SCH (09:10)
[2018-02-23] MEDS: Tiotropium CAP.INH* CAP.INH/18 MCG (USE ORDER SET !) INH SCH (09:27)
--- NOTE | 2018-02-23 11:59 | PN ---
Subjective Date of Service: 02/23/18 Interval History: Patient seen and examined. Feeling better, still weak but feels she's improving. States she is having lower abdominal and LLQ pain, and urinary spasms when she tries to urinate. Denies fever or chills, no SOB, O2 sat off oxygen was 88%, tolerating 2LNC well. Family History: Unchanged from Admission Social History: Unchanged from Admission Past Medical History: Unchanged from Admission Objective Active Medications: Acetaminophen (Tylenol Tab*) 650 mg PO Q4H PRN PRN Reason: FEVER/PAIN Al Hydrox/Mg Hydrox/Simethicone (Maalox Plus*) 30 ml PO Q6H PRN PRN Reason: INDIGESTION Last Admin: 02/22/18 17:26 Dose: 30 ml Albuterol (Ventolin 2.5 Mg/3 Ml Neb.Roro*) 2.5 mg INH [id number] AWAKE PRN PRN Reason: sob/wheezing Albuterol (Ventolin Hfa Inhaler*) 1 puff INH Q4H PRN PRN Reason: SOB/WHEEZING Betaxolol HCl (Betoptic-S 0.25%*) 1 drop BOTH EYES QPM [facility] Last Admin: 02/22/18 17:26 Dose: 1 drp Carisoprodol (Soma Tab*) 350 mg PO DAILY PRN PRN Reason: SPASMS - BACK Docusate Sodium (Colace Cap*) 100 mg PO BID [facility] Last Admin: 02/23/18 08:51 Dose: 100 mg Heparin Sodium (Porcine) (Heparin Vial(*)) 5,000 units SUBCUT Q8HR [facility] Last Admin: 02/23/18 05:00 Dose: Not Given Ceftriaxone Sodium 1 gm/ (Sodium Chloride) 50 mls @ 200 mls/hr IVPB Q24H [facility] Lorazepam (Ativan Tab(*)) 0.5 mg PO Q6H PRN PRN Reason: ANXIETY Last Admin: 02/22/18 19:41 Dose: 0.5 mg Magnesium Hydroxide (Milk Of Magnesia Liq*) 30 ml PO Q4H PRN PRN Reason: CONSTIPATION Last Admin: 02/23/18 08:52 Dose: 30 ml Mirtazapine (Remeron Tab*) 7.5 mg PO QPM [facility] Last Admin: 02/22/18 17:27 Dose: 7.5 mg Olopatadine HCl (Pataday 0.2% (Nf)) 1 drop BOTH EYES QPM PRN PRN Reason: Allergy Symptoms Omeprazole (Prilosec Cap*) 20 mg PO BID [facility] Last Admin: 02/23/18 08:51 Dose: 20 mg Ondansetron HCl (Zofran Inj*) 4 mg IV Q4H PRN PRN Reason: NAUSEA/VOMITING Polyethylene Glycol/Electrolytes (Miralax*) 17 gm PO DAILY [facility] Last Admin: 02/23/18 08:51 Dose: 17 gm Sodium Biphosphate/Sodium Phosphate (Fleet Enema*) 1 bottle [place] DAILY [facility] Last Admin: 02/23/18 09:10 Dose: 1 bottle Tiotropium [place] (Spiriva Cap.Inh*) 1 cap INH QAM [facility] Last Admin: 02/23/18 09:27 Dose: 1 cap Tramadol HCl (Ultram*) 50 mg PO Q8H PRN PRN Reason: PAIN Vital Signs - 8 hr 02/23/18 09:30 Pulse Rate 72 Respiratory 18 Rate Oxygen Devices in Use Now: Nasal Cannula Appearance: Alert, frail, NAD Ears/Nose/Mouth/Throat: Mucous Membranes Moist Neck: NL Appearance and Movements; NL JVP Respiratory: Symmetrical Chest Expansion and Respiratory Effort, Clear to Auscultation Cardiovascular: NL Sounds; No Murmurs; No JVD, RRR, No Edema Abdominal: No Hepatosplenomegaly, - - mildly tender LLQ Extremities: No Edema, No Clubbing, Cyanosis Skin: No Rash or Ulcers Neurological: Alert and Oriented x 3, - - general weakness Nutrition: Taking PO's Result Diagrams: 02/22/18 06:49 02/22/18 06:49 Additional Lab and Data: . Microbiology and Other Data: . Diagnostic Imaging: Patient Name: WASHINGTON SCHWARTZ Medical Record#: [id number] Ordering Physician: Sanya Enriquez MD Acct.#: [id number] : 1930 Age: 87 Sex: F Location: EMERGENCY DEPARTMENT Exam Date: 02/21/18 1135 ADM Status: REG ER Order Information: CT ABD/PEL W Accession Number: [id number] CPT: 67138 INDICATION: Nausea, vomiting, abdominal pain. COMPARISON: Abdomen radiograph of the same date and August 16, 2017 CT. TECHNIQUE: Multidetector CT images were obtained from the lung bases to the ischial tuberosities with 47 mL Visipaque 320 IV and oral contrast. Multiplanar reformation. REPORT: Visualized thorax is remarkable for severely elevated lung volumes and advanced emphysema. Negative for cardiomegaly. Coronary artery calcifications. Small hiatal hernia. Unchanged mild prominence of the intrahepatic bile ducts. Pneumobilia at the common bile duct favoring previous sphincterotomy. Unremarkable gallbladder is visualized inferior to the RIGHT hepatic lobe reference image 36. No focal hepatic lesions evident. Moderately atrophic pancreas without suspicious finding. Unremarkable spleen. Enteric contrast extends to the proximal transverse colon large volume of stool present in the transverse through sigmoid colon. Negative for rectal distention with stool. Negative for dilated small bowel loops. While the appendix is not discretely visualized, there is no inflammatory change in the right lower quadrant or region of the tip of the cecum to suggest presence of an acute inflammatory process. Negative for ascites, free air, hernias. Unremarkable adrenal glands. Mildly atrophic kidneys with symmetric nephrograms and pyelograms. Negative for suspicious focal renal lesions or hydronephrosis. No suspicious finding along the course of the nondilated ureters. Unremarkable partially distended urinary bladder. Atrophic uterus. Unremarkable adnexal regions. Negative for lymphadenopathy. Extensive atherosclerotic plaque of normal diameter abdominal aorta and iliac arteries. Physiologic distention of the IVC. Negative for superficial or deep soft tissue hematoma. Artifact from internal fixation hardware at the LEFT hip. Negative for suspicious focal osseous lesions. No significant change in T12 and L1 biconcave osteoporotic compression fractures. No new compression fractures evident. IMPRESSION: #. Advanced COPD. #. Coronary artery calcifications. #. Unchanged mild prominence of the intrahepatic bile ducts. Pneumobilia at the common bile duct favoring previous sphincterotomy. #. No acute pathologic process of the alimentary tract evident. #. Negative for obstructive uropathy. #. No significant change in T12 and L1 biconcave osteoporotic compression fractures. No new compression fractures evident. <Electronically signed by Sanya Siu MD in [facility]> 02/21/18 5618 This report is only to be considered final once signed by the Provider(s) as displayed in the "<Electronically Signed by >" field (s). Absence of a signature indicates the report is in a draft status and still needs to be finalized. In the event this document was created by someone other than the signing Provider, the individual initiating the document will be listed in the "Entered by:" or "Dictated by:" macdonald. 1 of 2 EKG Data: . Assess/Plan/Problems-Billing Assessment: This is an 87 y/o female with PMHx of COPD, glaucoma, chronic back pain and chronic constipation, who presented to ED with generalized weakness, abdominal distension and constipation, notes being unable to care for self at home 2/2 weakness, interested in [facility]/SNF. - Patient Problems (1) Enterococcus UTI Code(s): N39.0 - URINARY TRACT INFECTION, SITE NOT SPECIFIED; B95.2 - ENTEROCOCCUS THE CAUSE OF DISEASES CLASSIFIED ELSEWHERE SNOMED Code(s): 076148298586173 Comment: - Culture positive for enterococcus faecium - Will start ceftriaxone today - This is likely the culprit for much of her recent weakness, daughter reports she's been taking pyridium constantly at home (2) Protein-calorie malnutrition, severe Code(s): E43 - UNSPECIFIED SEVERE PROTEIN-CALORIE MALNUTRITION SNOMED Code(s) : 513468435 Comment: - BMI of 16.6 with muscle wasting, infection and weakness - Nutrition consult appreciated, supplements added - Continue supportive care - IVF DC today to prevent overload (3) Abdominal pain Current Visit: Yes Code(s): R10.9 - UNSPECIFIED ABDOMINAL PAIN SNOMED Code(s ): 36577139 Comment: - Improving, likely 2/2 chronic constipation, CT with no acute pathology - May also have UTI component to her pain, given excessive use of pyridium at home (4) Constipation Code(s): K59.00 - CONSTIPATION, UNSPECIFIED SNOMED Code(s): 34348304 Comment: - Chronic issues due to decreased mobility, advanced age and chronic back pain - Continue laxavties, stool softners, added scheduled enema today with some result per patient and RN - Hemoccult negative - Daughter requested GI consult, however issues are chronic with no acute process on CT and she is responding to bowel regimen. Would recommend outpatient GI follow up. (5) Weakness generalized Code(s): R53.1 - WEAKNESS SNOMED Code(s): 60029177 Comment: - Multifactorial, combinated of UTI, COPD/hypoxia, deconditioning and poor PO intake - Responding well to IVF and increased PO intake, suspect she will have more dramatic improvement with antibiotics (6) COPD (chronic obstructive pulmonary disease) Code(s): J44.9 - CHRONIC OBSTRUCTIVE PULMONARY DISEASE, UNSPECIFIED SNOMED Code(s): 64617738 Comment: - Continue sprivia - Albuterol as needed for SOB - Continue supplementatl O2 (7) Glaucoma Code(s): H40.9 - UNSPECIFIED GLAUCOMA SNOMED Code(s): 56387050 Comment: - Continue home eye drops (8) DVT prophylaxis Code(s): EAQ3399 - SNOMED Code(s): 068760316 Comment: - Heparin SubQ (9) DNR (do not resuscitate) Status and Disposition: Inpatient. Anticipate discharge to SNF once bed available.
[2018-02-23] MEDS: cefTRIAXone(*) 1 GM in NS 0.9% 50 ML* 50 ML IVPB SCH (13:08)
[2018-02-23] MEDS: Betaxolol-S 0.25%* 10 ML BTL BOTH EYES SCH (17:17)
[2018-02-23] MEDS: Mirtazapine TAB* 15 MG PO SCH (17:17)
[2018-02-23] MEDS: LORazepam TAB(*) 0.5 MG PO PRN (21:48)
[2018-02-24] MEDS: Heparin VIAL(*) 5000 UNITS/ML VIAL (FIVE THOUSAND) SUBCUT SCH ×3 (04:13→21:32)
[2018-02-24] MEDS: Tiotropium CAP.INH* CAP.INH/18 MCG (USE ORDER SET !) INH SCH (07:36)
[2018-02-24] MEDS: Sodium Phosphate ADULT ENEMA* 118 ml bottle PR SCH (07:44)
[2018-02-24] MEDS: Omeprazole CAP* 20 MG PO SCH ×2 (07:49→21:35)
[2018-02-24] MEDS: Polyethylene Glycol 3350* 17 GM PACKET PO SCH (07:49)
[2018-02-24] MEDS: Docusate CAP* 100 MG PO SCH ×2 (07:49→21:35)
[2018-02-24] MEDS: Magnesium Hydroxide LIQ* 30 ML UDC PO PRN (10:21)
--- NOTE | 2018-02-24 11:07 | PN ---
Subjective Date of Service: 02/24/18 Interval History: Patient seen and examined. Overall improving, no further bowel movement today, this is concerning for patient. Has some associated abdominal pain, no fevers or chills, nor urinary complaints. Family History: Unchanged from Admission Social History: Unchanged from Admission Past Medical History: Unchanged from Admission Objective Active Medications: Acetaminophen (Tylenol Tab*) 650 mg PO Q4H PRN PRN Reason: FEVER/PAIN Al Hydrox/Mg Hydrox/Simethicone (Maalox Plus*) 30 ml PO Q6H PRN PRN Reason: INDIGESTION Last Admin: 02/22/18 17:26 Dose: 30 ml Albuterol (Ventolin 2.5 Mg/3 Ml Neb.Roro*) 2.5 mg INH RT.[id number] AWAKE PRN PRN Reason: sob/wheezing Albuterol (Ventolin Hfa Inhaler*) 1 puff INH Q4H PRN PRN Reason: SOB/WHEEZING Betaxolol HCl (Betoptic-S 0.25%*) 1 drop BOTH EYES QPM [facility] Last Admin: 02/23/18 17:17 Dose: 1 drp Carisoprodol (Soma Tab*) 350 mg PO DAILY PRN PRN Reason: SPASMS - BACK Docusate Sodium (Colace Cap*) 100 mg PO BID [facility] Last Admin: 02/24/18 07:49 Dose: 100 mg Heparin Sodium (Porcine) (Heparin Vial(*)) 5,000 units SUBCUT Q8HR [facility] Last Admin: 02/24/18 04:13 Dose: Not Given Ceftriaxone Sodium 1 gm/ (Sodium Chloride) 50 mls @ 200 mls/hr IVPB Q24H [facility] Last Admin: 02/23/18 13:08 Dose: 200 mls/hr Lorazepam (Ativan Tab(*)) 0.5 mg PO Q6H PRN PRN Reason: ANXIETY Last Admin: 02/23/18 21:48 Dose: 0.5 mg Magnesium Hydroxide (Milk Of Magnesia Liq*) 30 ml PO Q4H PRN PRN Reason: CONSTIPATION Last Admin: 02/24/18 10:21 Dose: 30 ml Mirtazapine (Remeron Tab*) 7.5 mg PO QPM [facility] Last Admin: 02/23/18 17:17 Dose: 7.5 mg Olopatadine HCl (Pataday 0.2% (Nf)) 1 drop BOTH EYES QPM PRN PRN Reason: Allergy Symptoms Omeprazole (Prilosec Cap*) 20 mg PO BID [facility] Last Admin: 02/24/18 07:49 Dose: 20 mg Ondansetron HCl (Zofran Inj*) 4 mg IV Q4H PRN PRN Reason: NAUSEA/VOMITING Last Admin: 02/24/18 06:16 Dose: 4 mg Polyethylene Glycol/Electrolytes (Miralax*) 17 gm PO DAILY [facility] Last Admin: 02/24/18 07:49 Dose: 17 gm Sodium Biphosphate/Sodium Phosphate (Fleet Enema*) 1 bottle AK DAILY [facility] Last Admin: 02/24/18 07:44 Dose: 1 bottle Tiotropium [place] (Spiriva Cap.Inh*) 1 cap INH QAM [facility] Last Admin: 02/24/18 07:36 Dose: 1 cap Tramadol HCl (Ultram*) 50 mg PO Q8H PRN PRN Reason: PAIN Vital Signs - 8 hr 02/24/18 02/24/18 02/24/18 03:39 07:14 08:00 Temperature 97.9 F 98.8 F Pulse Rate 74 71 Respiratory 22 18 16 Rate Blood Pressure 143/50 97/38 (mmHg) O2 Sat by Pulse 98 100 Oximetry Oxygen Devices in Use Now: Nasal Cannula Appearance: Alert, frail, NAD Eyes: No Scleral Icterus, PERRLA Ears/Nose/Mouth/Throat: NL Teeth, Lips, Gums, Mucous Membranes Moist Neck: NL Appearance and Movements; NL JVP, Trachea Midline Respiratory: Symmetrical Chest Expansion and Respiratory Effort, Clear to Auscultation, - - diminished bases bilaterally Cardiovascular: NL Sounds; No Murmurs; No JVD, RRR, No Edema Abdominal: NL Sounds; No Tenderness; No Distention Skin: No Rash or Ulcers Neurological: Alert and Oriented x 3, - - general weakness Nutrition: Taking PO's Result Diagrams: 02/22/18 06:49 02/22/18 06:49 Additional Lab and Data: . Microbiology and Other Data: . Diagnostic Imaging: Patient Name: WASHINGTON SCHWARTZ Medical Record#: [id number] Ordering Physician: Sanya Enriquez MD Acct.#: [id number] : 1930 Age: 87 Sex: F Location: EMERGENCY DEPARTMENT Exam Date: 02/21/18 1135 ADM Status: REG ER Order Information: CT ABD/PEL W Accession Number: [id number] CPT: 40810 INDICATION: Nausea, vomiting, abdominal pain. COMPARISON: Abdomen radiograph of the same date and August 16, 2017 CT. TECHNIQUE: Multidetector CT images were obtained from the lung bases to the ischial tuberosities with 47 mL Visipaque 320 IV and oral contrast. Multiplanar reformation. REPORT: Visualized thorax is remarkable for severely elevated lung volumes and advanced emphysema. Negative for cardiomegaly. Coronary artery calcifications. Small hiatal hernia. Unchanged mild prominence of the intrahepatic bile ducts. Pneumobilia at the common bile duct favoring previous sphincterotomy. Unremarkable gallbladder is visualized inferior to the RIGHT hepatic lobe reference image 36. No focal hepatic lesions evident. Moderately atrophic pancreas without suspicious finding. Unremarkable spleen. Enteric contrast extends to the proximal transverse colon large volume of stool present in the transverse through sigmoid colon. Negative for rectal distention with stool. Negative for dilated small bowel loops. While the appendix is not discretely visualized, there is no inflammatory change in the right lower quadrant or region of the tip of the cecum to suggest presence of an acute inflammatory process. Negative for ascites, free air, hernias. Unremarkable adrenal glands. Mildly atrophic kidneys with symmetric nephrograms and pyelograms. Negative for suspicious focal renal lesions or hydronephrosis. No suspicious finding along the course of the nondilated ureters. Unremarkable partially distended urinary bladder. Atrophic uterus. Unremarkable adnexal regions. Negative for lymphadenopathy. Extensive atherosclerotic plaque of normal diameter abdominal aorta and iliac arteries. Physiologic distention of the IVC. Negative for superficial or deep soft tissue hematoma. Artifact from internal fixation hardware at the LEFT hip. Negative for suspicious focal osseous lesions. No significant change in T12 and L1 biconcave osteoporotic compression fractures. No new compression fractures evident. IMPRESSION: #. Advanced COPD. #. Coronary artery calcifications. #. Unchanged mild prominence of the intrahepatic bile ducts. Pneumobilia at the common bile duct favoring previous sphincterotomy. #. No acute pathologic process of the alimentary tract evident. #. Negative for obstructive uropathy. #. No significant change in T12 and L1 biconcave osteoporotic compression fractures. No new compression fractures evident. <Electronically signed by Sanya Siu MD in OV> 02/21/18 1443 This report is only to be considered final once signed by the Provider(s) as displayed in the "<Electronically Signed by >" field (s). Absence of a signature indicates the report is in a draft status and still needs to be finalized. In the event this document was created by someone other than the signing Provider, the individual initiating the document will be listed in the "Entered by:" or "Dictated by:" macdonald. 1 of 2 EKG Data: . Assess/Plan/Problems-Billing Assessment: This is an 87 y/o female with PMHx of COPD, glaucoma, chronic back pain and chronic constipation, who presented to ED with generalized weakness, abdominal distension and constipation, notes being unable to care for self at home 2/2 weakness, interested in [facility]/SNF. - Patient Problems (1) Enterococcus UTI Code(s): N39.0 - URINARY TRACT INFECTION, SITE NOT SPECIFIED; B95.2 - ENTEROCOCCUS THE CAUSE OF DISEASES CLASSIFIED ELSEWHERE SNOMED Code(s): 171748515123083 Comment: - Culture positive for enterococcus faecium - Continue ceftriaxone daily, - This is likely the culprit for much of her recent weakness, daughter reports she's been taking pyridium constantly at home (2) Protein-calorie malnutrition, severe Code(s): E43 - UNSPECIFIED SEVERE PROTEIN-CALORIE MALNUTRITION SNOMED Code(s) : 513184881 Comment: - BMI of 16.6 with muscle wasting, infection and weakness - Nutrition following, supplements added - Continue supportive care (3) Abdominal pain Current Visit: Yes Code(s): R10.9 - UNSPECIFIED ABDOMINAL PAIN SNOMED Code(s ): 30711456 Comment: - Improving, likely 2/2 chronic constipation, CT with no acute pathology - May also have UTI component to her pain, given excessive use of pyridium at home - Continue to monitor (4) Constipation Code(s): K59.00 - CONSTIPATION, UNSPECIFIED SNOMED Code(s): 16333430 Comment: - Chronic issues due to decreased mobility, advanced age and chronic back pain - Continue laxavties, stool softners, added scheduled enema today with some result per patient and RN - Hemoccult negative - MOM today and monitor for result - Daughter requested GI consult, however issues are chronic with no acute process on CT and she is responding to bowel regimen. Would recommend outpatient GI follow up. (5) Weakness generalized Code(s): R53.1 - WEAKNESS SNOMED Code(s): 12723709 Comment: - Multifactorial, combinated of UTI, COPD/hypoxia, deconditioning and poor PO intake - Slowly improving with hydration, increased PO intake and atbx (6) COPD (chronic obstructive pulmonary disease) Code(s): J44.9 - CHRONIC OBSTRUCTIVE PULMONARY DISEASE, UNSPECIFIED SNOMED Code(s): 77333010 Comment: - Continue sprivia - Albuterol as needed for SOB - Continue supplementatl O2 (7) Glaucoma Code(s): H40.9 - UNSPECIFIED GLAUCOMA SNOMED Code(s): 53308673 Comment: - Continue home eye drops (8) DVT prophylaxis Code(s): MPR8485 - SNOMED Code(s): 768345315 Comment: - Heparin SubQ (9) DNR (do not resuscitate) Status and Disposition: Inpatient. Anticipate discharge to SNF once bed available. Likely tomorrow.
[2018-02-24] MEDS: cefTRIAXone(*) 1 GM in NS 0.9% 50 ML* 50 ML IVPB SCH (12:09)
[2018-02-24] MEDS: Linezolid TAB* 600 MG PO SCH (15:54)
[2018-02-24] MEDS: Mirtazapine TAB* 15 MG PO SCH (18:02)
[2018-02-24] MEDS: Betaxolol-S 0.25%* 10 ML BTL BOTH EYES SCH (18:02)
[2018-02-24] MEDS: LORazepam TAB(*) 0.5 MG PO PRN (21:35)
[2018-02-25] MEDS: Linezolid TAB* 600 MG PO SCH (03:08)
[2018-02-25] MEDS: Heparin VIAL(*) 5000 UNITS/ML VIAL (FIVE THOUSAND) SUBCUT SCH (05:49)
[2018-02-25 07:50] VITALS: BP 135/62
[2018-02-25] MEDS: Tiotropium CAP.INH* CAP.INH/18 MCG (USE ORDER SET !) INH SCH (08:57)
[2018-02-25] MEDS: Polyethylene Glycol 3350* 17 GM PACKET PO SCH (09:10)
[2018-02-25] MEDS: Omeprazole CAP* 20 MG PO SCH (09:10)
[2018-02-25] MEDS: Sodium Phosphate ADULT ENEMA* 118 ml bottle PR SCH (09:11)
[2018-02-25] MEDS: Docusate CAP* 100 MG PO SCH (09:11)
[2018-02-25] MEDS: LORazepam TAB(*) 0.5 MG PO PRN (09:47)
--- NOTE | 2018-02-25 11:22 | DS ---
CC: Dr. Connor * DISCHARGE SUMMARY: DATE OF ADMISSION: 02/21/18 DATE OF DISCHARGE: 02/25/18 PATIENT OF/ADMITTING PHYSICIAN: Dr. Brenton Greer, admitting hospitalist. ATTENDING HOSPITALIST WHILE PATIENT IN HOSPITAL: Lydia Cabrales DO * ( DICTATED BY BINU CASTANO) CONSULTATIONS: None. ADMISSION DIAGNOSES: 1. Abdominal pain and distention. 2. Chronic constipation. 3. Nausea and vomiting. 4. Urinary tract infection. 5. Chronic obstructive pulmonary disease. 6. Anxiety and depression. 7. History of glaucoma. 8. Generalized weakness. DISCHARGE DIAGNOSES: 1. Abdominal pain and distention. 2. Chronic constipation. 3. Nausea and vomiting. 4. Urinary tract infection. 5. Chronic obstructive pulmonary disease. 6. Anxiety and depression. 7. History of glaucoma. 8. Generalized weakness. PROCEDURES: None. HISTORY OF PRESENT ILLNESS: Ms. Plascencia is a pleasant 87-year-old female with past medical history significant for hypertension, COPD, glaucoma, and chronic constipation, who presented to the emergency room on 02/21/18 with complaints of worsening abdominal pain, distention, and not able to have a bowel movement in days. The patient described having issues with chronic constipation lately for which she was forced to manually disimpact herself on several occasions. She had resided at [facility] for a period of time; however, she left and stayed home with one of her daughters. Her general health has been declined overall and she has not been able to take care of herself on a daily basis. She has history of chronic constipation that has gotten worse despite the daily use of stool softeners and laxative. Given her ongoing symptoms, she had an abdominal x-ray followed by a CT scan of the abdomen that showed a large amount of retained stool without any other abdominal or pelvic pathology. Multiple attempts were made in the ED including Fleet Enema and a dose of MiraLAX and milk of magnesia that unfortunately failed to resolve her symptoms. Given her history as well as the generalized decline in her overall health, we were asked to see the patient to consider admission and social work therapist consult for possible placement to a detention facility. HOSPITAL COURSE: The patient was admitted under hospitalist service on . She was kept on all her home medications including her eye drops for glaucoma. She had an aggressive bowel regimen including daily Colace and MiraLAX as well as milk of magnesia and Fleet Enema on as-needed basis. She passed a small amount of stool on the following day. She was ambulatory, out of bed, and had PT evaluation and treatment in anticipation for her placement. Her laboratory workup was repeated, revealed no evidence of leukocytosis. She has history of chronic anemia for which her hemoglobin and hematocrit was checked and was basically at her baseline. Her stools were checked for occult blood and it was negative. Her urine was checked and cultured revealing evidence of Enterococcus faecium for which she was initially started on ceftriaxone and then changed to Zyvox to be taken orally and will be discharged home with a course of 10 days. She continued to improve on a daily basis and her appetite eventually got better. Her abdominal pain, nausea, and vomiting had resolved and the patient continued to have occasional issue with moving her bowels; however, it was resolved using enemas on as-needed basis. food services coordinator consultation was obtained and on discharge day, the patient had [facility]. We discussed potential discharge to snf with the patient and her daughter, who are in agreement, and she will be discharged to [facility] today and plan to follow up with her primary care physician in the next week or two. DISCHARGE MEDICATIONS: Her discharge medications include: 1. Maalox 30 mL p.o. q.6 hours as needed for heartburn. 2. Lorazepam 0.5 mg p.o. q.6 hours as needed for anxiety. 3. Olopatadine 0.2% eye drops 1 in each eye once daily. 4. Tylenol 650 mg p.o. q.6 hours as needed for fever or pain. 5. Milk of magnesia 30 mg p.o. q.6 hours as needed for constipation. 6. Albuterol inhaler MDI 2 puffs inhaled q.4 hours as needed for shortness of breath as well as Ventolin nebulizer 2.5 mg/3 mL one nebulizer inhaled q.6 hours as needed for shortness of breath. 7. Soma 350 mg p.o. daily. 8. Betaxolol 1 drop both eyes q.h.s. 9. Vitamin D3 5000 units p.o. daily. 10. Colace 100 mg p.o. b.i.d. 11. Zyvox 600 mg p.o. b.i.d. x10 days. 12. Remeron 7.5 mg p.o. q.h.s. 13. Pantoprazole 40 mg p.o. daily. 14. MiraLAX 17 g packet 1 p.o. daily. 15. Fleet Enema 1 bottle p.r. p.r.n. for constipation. PHYSICAL EXAMINATION: On discharge day, the patient's vitals were stable. Her lungs were clear to auscultation bilaterally. Her heart was regular rate and rhythm without rubs, murmurs, or gallops. Her abdomen was soft, mildly distended and nontender. There were no hernias, masses, or hepatosplenomegaly. DISPOSITION: The patient will be [facility] to [facility] on her usual medication list and will be kept on Zyvox for 10 days for treatment of urinary tract infection. She will be scheduled to follow up with her primary care physician, Dr. Connor, in the next week or two. BINU CASTANO [id number]/[facility] #: [id number] MTDD
== END 2018-02-25 12:45 | DRG 391 ==
LOC: ED 09:58 → MED 17:36 → OBSVTOIN 02-22 11:37
PROVIDERS: ADMIT Internal Medicine; ATTEND Hospitalist
DX: K59.09 Other constipation (principal); E43 Unspecified severe protein-calorie malnutrition; N39.0 Urinary tract infection, site not specified; Z68.1 Body mass index [BMI] 19.9 or less, adult; H40.9 Unspecified glaucoma; J44.9 Chronic obstructive pulmonary disease, unspecified; K21.9 Gastro-esophageal reflux disease without esophagitis; M17.0 Bilateral primary osteoarthritis of knee; M81.0 Age-related osteoporosis without current pathological fracture; G43.909 Migraine, unspecified, not intractable, without status migrainosus; F41.9 Anxiety disorder, unspecified; F32.9 Major depressive disorder, single episode, unspecified; I10 Essential (primary) hypertension; R11.2 Nausea with vomiting, unspecified; R53.1 Weakness; B95.2 Enterococcus as the cause of diseases classified elsewhere; D64.9 Anemia, unspecified; M54.9 Dorsalgia, unspecified; G89.29 Other chronic pain; R33.9 Retention of urine, unspecified; Z66 Do not resuscitate; Z87.891 Personal history of nicotine dependence; Z80.1 Family history of malignant neoplasm of trachea, bronchus and lung; Z87.01 Personal history of pneumonia (recurrent); Z87.11 Personal history of peptic ulcer disease; Z82.49 Family history of ischemic heart disease and other diseases of the circulatory system; Z88.8 Allergy status to other drugs, medicaments and biological substances; Z88.5 Allergy status to narcotic agent; Z88.2 Allergy status to sulfonamides
CPT/HCPCS: 36415; 74018; 74177; 80048; 80053; 81003; 81015; 82272; 82550; 83605; 83690; 83735; 84484; 85025; 86140; 87077; 87086; 93005; 94640; 99284; A9270-GY; G0378; G8978-GP-CL; G8979-GP-CJ; G8980-GP-CJ; J0696; J1644; J2405; Q9967

== ENCOUNTER 2018-04-23 13:30 | Observation (INO) | payer MEDICARE, OTHER ==
--- OUTSIDE RECORDS SUMMARY | 2018-04-23 16:15 | XMS REPORT | Continuity of Care Document ---
:1930 External Reference #:[id number] Author Name Sree Mtz M.D. Address [address] [address] Care Team Providers Name Role Phone Stefan Mahoney M.D. 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 [facility] [address] Policy Number: [id number] [facility] Aspen Plascencia PayID: [id number] [address] [place] [address] Effective: [address] Policy [address]: [id number] [facility] Aspen Plascencia PayID: [id number] [address] [place] [address] Advance Directives Description No Information Available Problems Description No Information Family History Date Family Member(s) Problem(s) Comments General Hearing Loss Social History Type Date Description Comments Sex Unknown Occupation Retired Tobacco Use Start: Unknown End: Former Cigarette Smoker 1 Smoked for 25 years. Unknown Pack Daily Quit at age 67. Tobacco Use Start: Unknown Never Smoked Cigars Tobacco Use Start: Unknown Never Smoked A Pipe Smokeless Tobacco Never Used Smokeless Tobacco ETOH Use Does not drink alcohol Tobacco Use Start: Unknown End: Patient is a former Unknown smoker Smoking Status Reviewed: 04/15/18 Patient is a former smoker Allergies, Adverse Reactions, Alerts Date Description Reaction Status Severity Comments 04/15/2018 Sulfa Antibiotics Active 04/15/2018 Lactose Active Medications Medication Date Status Form Strength Qnty SIG Indications Ordering Provider Augmentin 04/15/ Active Tablets 500-125mg 20tabs Take 1 J31.1 Sree Rodgers tablet by Margy mccauley M.D. every 12 hours for 10 days for infection Maalox Max / Active Suspension 400-400-40 30 ML PO Unknown 0000 mg/5ML Q6H prn Milk Of / Active Suspension 400mg/5ML 30 ML Q6H Unknown Magnesia 0000 prn Miralax / Active Powder 3350NF 17 Grams Unknown 0000 PO daily Olopatadine / Active Solution 0.2% One drop Unknown HCL 0000 to both eyes daily Pantoprazole / Active Tablets DR 40mg qam Unknown Sodium 0000 Mirtazapine / Active Tablets 7.5mg QHS Unknown 0000 Spiriva / Active Capsules 18mcg 1 cap Unknown Handihaler 0000 inhaled everyday Ventolin HFA / Active Aerosol 108(90Base 2 puffs Unknown 0000 ) mcg/Act every 4 hours as needed for shortness of breath Vitamin D3 / Active Capsules 5000Unit daily Unknown Maximum 0000 Strength Zofran / Active Tablets 4mg 4mg by Unknown 0000 mouth every 6 hours as needed Immunizations Description No Information Available Vital Signs Date Vital Result Comment 04/15/2018 2:50pm Weight 84.00 lb Weight 38.102 kg Height 62 inches 5'2" Height in cm's 157.5 cm BMI (Body Mass Index) 15.4 kg/m2 Results Description No Information Available Procedures Date Code Description Status 04/15/2018 46247 Tympanometry Completed 04/15/2018 81466 Comprehensive Audiogram Completed 04/15/2018 10348 Nasopharyngoscopy Completed Encounters Type Date Location Provider Dx Diagnosis Office Visit 04/15/2018 Aidee,Fareed Irizarry 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 She has had some high frequency hearing lossin both ears and a conductive hearing loss in the left ear on testing in 2000. Her sensorineural hearing loss has progressed over time.This is aging. She also has significant low frequency conductive hearing losses in both ears. I think this is from the development of effusions. Because of this I looked in he nasopharynx and she has a nasopharyngitis. This could be leading to the inflammation thatis blocking her eustachian tubes. I am going to treat her with a course of ABX. If her ears do not respond I can put in tubes.H65.23 Chronic serous otitis media, bilateralFollow up:FU 4 weeks possible bilateral myringotomy with cndklN96.1 Chronic nasopharyngitisNew Medication:Augmentin 500-125 mg - Take 1 tablet by mouth every 12 hours for 10 days for infection
[2018-04-23] MEDS ORDERED: Ondansetron INJ* 2 MG/ML VIAL IV ONE (16:17)
[2018-04-23] MEDS ORDERED: NS 0.9% 250 ML* 250 ML IV ONE (16:17)
[2018-04-23] MEDS ORDERED: Morphine INJ* 2 MG/ML 1 ML SYRINGE (TWO MG - NEW SYRINGE VERSION) IV ONE (16:17)
--- NOTE | 2018-04-23 16:19 | ED ---
Upper Extremity Pain - HPI Summary HPI Summary: Patient is an 87-year-old female who presents emergency department for evaluation after a fall that occurred just prior to arrival. Pt. resides at [facility]. Patient states she typically ambulates with a walker but she recently started wearing oxygen and was trying to maneuver to the bathroom with oxygen and walker when she fell landing on her right shoulder. He shouldn't states she is unclear exactly why she fell but denies striking her head or loss of consciousness. She denies headache or neck pain. She complains of low back pain and right shoulder pain. Patient denies recent illness, cough, fever, chest pain, shortness of breath, abdominal pain, vomiting , diarrhea. She is not anticoagulated. PMHx glaucoma, arthritis, COPD, AMS, and stomach ulcers. Pt is a former smoker. Symptoms are moderate in severity. Movement makes symptoms worse. Rest makes symptoms better. - History of Current Complaint Hx Obtained From: Patient - Allergies/Home Medications Allergies/Adverse Reactions: Allergies Allergy/AdvReac Type Severity Reaction Status Date / Time codeine Allergy Abdominal Verified 02/21/18 10:08 Pain lactose Allergy GI Upset Verified 02/21/18 10:08 Sulfa (Sulfonamide Allergy Swelling Verified 02/21/18 10:08 Antibiotics) PMH/Surg Hx/FS Hx/Imm Hx Previously Healthy: Yes Endocrine/Hematology History: Denies: Hx Anticoagulant Therapy, Hx Bone Marrow Disease, Hx Diabetes, Hx Sickle Cell Disease, Hx Thyroid Disease, Hx Anemia Cardiovascular History: Reports: Other Cardiovascular Problems/Disorders - RIGHT ANKLE SWELLING FOR PAST FEW MONTHS Denies: Hx Deep Vein Thrombosis, Hx Embolism, Hx Hypertension Respiratory History: Reports: Hx Chronic Obstructive Pulmonary Disease (COPD), Hx Pneumonia, Other Respiratory Problems/Disorders - HX PNEUMONIA X 2, [facility] SMOKER 50+ YRS Denies: Hx Pulmonary Embolism GI History: Reports: Hx Gastroesophageal Reflux Disease, Hx Hiatal Hernia - REPAIRED 4 YRS AGO, Hx Ulcer Denies: Other GI Disorders History: Reports: Other Problems/Disorders - FREQUENCY, WEARS DEPENDS Denies: Hx Renal Disease Musculoskeletal History: Reports: Hx Arthritis - KNEES, GENERALIZED, Hx Bursitis - LEFT ELBOW, OK NOW, Hx Osteoporosis, Other Musculoskeletal History - OSTEOPOROSIS, AMBULATES WITH A WALKER, SEE BELOW Sensory History: Reports: Hx Contacts or Glasses, Hx Glaucoma, Hx Vision Problem Denies: Hx Cataracts, Hx Hearing Aid Opthamlomology History: Reports: Hx Contacts or Glasses, Hx Glaucoma, Hx Vision Problem Denies: Hx Cataracts Neurological History: Denies: Hx Headaches, Hx Migraine, Hx Seizures, Hx Spinal Cord Injury Psychiatric History: Reports: Hx Anxiety, Hx Depression, Other Psychiatric Issues/Disorders - "untreated depression" says one daughter - Cancer History Hx Chemotherapy: No - Surgical History Surgery Procedure, Year, and Place: LEFT MASTOIDITIS AN INFANT. ORIF LEFT HIP- 1984- [facility] [place]. LEFT BREAST BX- 30 YRS AGO- [facility] [place]. MACULAR HOLE RIGHT EYE- 2001- [facility]. HIATAL HERNIA REPAIR- 2012- [facility] [place] Hx Anesthesia Reactions: No Infectious Disease History: Denies: Hx Hepatitis, Traveled Outside the [place] in Last 30 Days - Family History Known Family History: Positive: Cardiac Disease, Other - Lung CA - Social History Occupation: Retired Lives: At [facility] Alcohol Use: None Substance Use Type: Reports: None Hx Tobacco Use: Yes Smoking Status (MU): Former Smoker Type: Cigarettes Amount Used/How Often: 1 PPD FOR 50+ YRS Length of Time of Smoking/Using Tobacco: 50+ YRS Have You Smoked in the Last Year: No Review of Systems Constitutional: Negative Negative: Fever, Chills Eyes: Negative ENT: Negative Cardiovascular: Negative Negative: Palpitations, Chest Pain Respiratory: Negative Negative: Shortness Of Breath, Cough Gastrointestinal: Negative Negative: Abdominal Pain, Vomiting, Diarrhea, Nausea Genitourinary: Negative Negative: dysuria Positive: Other - Right shoulder and low back pain Neurological: Negative Negative: Headache, Weakness, Paresthesia, Numbness, Syncope All Other Systems Reviewed And Are Negative: Yes Physical Exam Triage Information Reviewed: Yes Vital Signs Reviewed: Yes Appearance: Positive: Cachectic - Pt. lying in bed in NAD. Awake alert and O x 3. Answers requestion appropriately. Skin: Positive: Warm, Dry Head/Face: Positive: Normal Head/Face Inspection Eyes: Positive: Normal, EOMI Neck: Positive: Supple, Nontender Respiratory/Lung Sounds: Positive: Clear to Auscultation, Breath Sounds Present Cardiovascular: Positive: Normal, RRR Abdomen Description: Positive: Nontender, Soft Musculoskeletal: Positive: Other - Swelling and pain to right shoulder and elbow. Good palpable radial pulse. Sensation intact throughout right arm. No pain with pelvic rock. 5/5 strength in bilateral LEs. Neurological: Positive: Normal, Alert, Oriented to Person Place, Time, CN Intact II-III, Unable to Assess Gait, Facial Symmetry, Speech Normal. Negative : Disoriented, Facial Droop, Slurred Speech Psychiatric: Positive: Affect/Mood Appropriate - [place] Coma Scale Best Eye Response: 4 - Spontaneous Best Motor Response: 6 - Obeys Commands Best Verbal Response: 5 - Oriented Coma Scale Total: 15 Diagnostics - Laboratory Result Diagrams: 04/23/18 16:37 04/23/18 16:37 Lab Statement: Any lab studies that have been ordered have been reviewed, and results considered in the medical decision making process. Course/Dx - Course Course Of Treatment: Pt. presenting for shoulder and back pain after a fall. She is afebrile with stable vital signs. Given unclear reason for fall will obtain labs, ecg and imaging. IV placed and pt. on monitor. Given 2mg morphine and zofran. NSS started. CBC shows chronic anemia with H and H of 8.9 and 27. CMP unremarkable. Negative troponin. CT lumbar spine is shows chronic changes without acute change, per radiology. Negative CXR. Shoulder xray is showing mildly displaced proximal humeral fracture. I spoke with Dr. Galo, orthopedics , who recommends sling and outpt. f.u. Results discussed with pt. Pt. is concerned with return to [facility] stating that she does not get enough help there and that she is in too much pain to return. Pt. examined by Dr. Marmolejo as well. Apparently pt. told Dr. Marmolejo that she is suicidal. Pt. will be signed out to Dr. Marmolejo for potential psych consult and admission. - Diagnoses Differential Diagnosis/HQI/PQRI: Positive: Contusion, Fracture (Closed), Hematoma, Strain, Sprain Provider Diagnoses: Fall, Humeral fracture, Suicidal ideations Discharge - Sign-Out/Discharge Documenting (check all that apply): Sign-Out Patient Signing out patient TO: Ronen Marmolejo - Discharge Plan Condition: Stable Referrals: Brittney Connor MD [Primary Care Provider] - - Billing Disposition and Condition Condition: STABLE
[2018-04-23] MEDS ORDERED: Morphine INJ* 4 MG/ML 1 ML SYRINGE (NEW SYRINGE VERSION) IV ONE (16:30)
[2018-04-23 16:51] LABS: ABS Basophils 0 10^3/ul (0-0.2); ABS Eosinophils 0 10^3/ul (0-0.6); ABS Lymphocytes 0.9 10^3/ul (1.0-4.8); ABS Monocytes 0.5 10^3/ul (0-0.8); ABS Neutrophils 6.3 10^3/ul (1.5-7.7); ABS Nucleated RBC 0 10^3/ul; Eosinophil % 0.6 % (0-6); Hematocrit 27 % (35-47); Hemoglobin 8.9 g/dl (12.0-16.0); Lymphocyte % 11.6 % (25-47); Mean Corpuscular HGB Conc 33 g/dl (31-36); Mean Corpuscular Hemoglobin 25 pg (27-31); Mean Corpuscular Volume 77 fL (80-97); Mean Platelet Volume 7.6 um3 (7.4-10.4); Nucleated Red Blood Cells % 0.1; Platelet Count 218 10^3/ul (150-450); Red Blood Count 3.55 10^6/ul (4.00-5.40); Red Cell Distribution Width 20 % (10.5-15); White Blood Count 7.7 10^3/ul (3.5-10.8)
[2018-04-23 17:20] LABS: EGFR Non-African American 80.9 (>60)
--- NOTE | 2018-04-23 18:05 | RAD ---
EXAM: CT Lumbar Spine Without Intravenous Contrast CLINICAL HISTORY: 87 years old, female; Injury or trauma; Fall; Initial encounter; Blunt trauma (contusions or hematomas) TECHNIQUE: Axial computed tomography images of the lumbar spine without intravenous contrast. All CT scans at this facility use at least one of these dose optimization techniques: automated exposure control; mA and/or kV adjustment per patient size (includes targeted exams where dose is matched to clinical indication); or iterative reconstruction. Coronal and sagittal reformatted images were created and reviewed. COMPARISON: No relevant prior studies available. FINDINGS: Vertebrae: Normal lumbar lordosis without spondylolisthesis. Chronic compression fractures of the T12, L1, and L2 vertebral bodies. Remaining body heights are maintained. No acute fractures. Discs/spinal canal/neural foramina: L1-L2: Disc height loss and end plate osteophyte disc bulge complex causing no canal stenosis.The facet joints demonstrate mild degenerative hypertrophy and sclerosis. No neural foraminal narrowing. At L2-L3: Disc height loss with osteophyte disc bulge complex causing no canal stenosis.The facet joints demonstrate mild degenerative hypertrophy and sclerosis. No neural foraminal narrowing. L3-L4: Mild disc height loss with symmetric endplate osteophyte disc bulge complex causing no canal stenosis.The facet joints demonstrate mild degenerative hypertrophy and sclerosis. No neural foraminal narrowing. L4-L5: Moderate disc height loss with endplate osteophyte disc bulge complex causing no canal stenosis.The facet joints demonstrate mild degenerative hypertrophy and sclerosis. Mild neural foraminal narrowing. L5-S1: Symmetric disc bulge causing no canal stenosis. The facet joints demonstrate mild degenerative hypertrophy and sclerosis. No neural foraminal narrowing. Soft tissues: Normal. No hernias. IMPRESSION: 1. No lumbar spine traumatic abnormalities. 2. Mild multilevel lumbar spondylopathy.
--- NOTE | 2018-04-23 18:09 | RAD ---
HISTORY: fall COMPARISONS: August 14, 2017 VIEWS: 1: frontal portable view of the chest at 5:42 PM FINDINGS: LINES AND TUBES: None. CARDIOMEDIASTINAL SILHOUETTE: The cardiomediastinal silhouette is normal for portable technique. PLEURA: The costophrenic angles are sharp. No pleural abnormalities are noted. LUNG PARENCHYMA: There is hyperinflation. ABDOMEN: The upper abdomen is clear. There is no subphrenic gas. BONES AND SOFT TISSUES: There is diffuse osteopenia. Degenerative changes are noted. IMPRESSION: NO ACTIVE CARDIOPULMONARY DISEASE.
--- NOTE | 2018-04-23 18:11 | RAD ---
HISTORY: fall COMPARISONS: None VIEWS: 3 , Frontal, lateral, and oblique views of the right elbow FINDINGS: Evaluation is limited by obliquity. BONE DENSITY: There is diffuse osteopenia. BONES: There is no displaced fracture. JOINTS: There is no arthropathy. ALIGNMENT: There is no dislocation. SOFT TISSUES: Unremarkable. OTHER FINDINGS: None. IMPRESSION: OSTEOPENIA. NO ACUTE OSSEOUS INJURY. THE DEGREE OF OSTEOPENIA MAY MAKE A NONDISPLACED FRACTURE RADIOGRAPHICALLY OCCULT. IF SYMPTOMS PERSIST, RECOMMEND REPEAT IMAGING.
--- NOTE | 2018-04-23 18:12 | RAD ---
HISTORY: fall COMPARISONS: None VIEWS: 1 , Single frontal view of the pelvis FINDINGS: BONE DENSITY: There is diffuse osteopenia. BONES: There is no displaced fracture. Patient is status post internal fixation of the left femur. JOINTS: There is moderate osteoarthritis of the hips and SI joints. ALIGNMENT: There is no dislocation. SOFT TISSUES: There is peripheral arterial calcification. OTHER FINDINGS: None. IMPRESSION: 1. OSTEOPENIA. 2. POST SURGICAL CHANGE. 3. PERIPHERAL ARTERIAL DISEASE. 4. OSTEOARTHRITIS. 5. NO ACUTE OSSEOUS INJURY. THE DEGREE OF OSTEOPENIA MAY MAKE A NONDISPLACED FRACTURE RADIOGRAPHICALLY OCCULT. IF SYMPTOMS PERSIST, RECOMMEND REPEAT IMAGING.
--- NOTE | 2018-04-23 18:13 | RAD ---
HISTORY: fall COMPARISONS: None VIEWS: 4 , Frontal internal rotation, external rotation, outlet, and axillary views of the right shoulder FINDINGS: BONE DENSITY: There is diffuse osteopenia. BONES: There is a comminuted, transverse oblique fracture of the proximal humeral diaphysis with mild displacement. JOINTS: There is osteoarthritis of the a.c. and glenohumeral joints. There is near complete effacement of the acromiohumeral interval. ALIGNMENT: There is no dislocation. SOFT TISSUES: Unremarkable. OTHER FINDINGS: None. IMPRESSION: 1. COMMINUTED FRACTURE OF THE PROXIMAL HUMERAL DIAPHYSIS. 2. OSTEOPENIA. 3. OSTEOPOROSIS. 4. FINDINGS SUGGESTIVE OF CHRONIC ROTATOR CUFF INJURY.
[2018-04-23] MEDS ORDERED: Acetaminophen TAB* 325 MG PO PRN (19:55)
[2018-04-23] MEDS ORDERED: Ondansetron INJ* 2 MG/ML VIAL IV PRN (19:55)
[2018-04-23] MEDS ORDERED: Al Hydrox/Mg Hydrox/Simet LIQ* 30 ML UDC PO PRN (20:11)
[2018-04-23] MEDS ORDERED: Cyclobenzaprine TAB* 10 MG PO PRN (20:12)
[2018-04-23] MEDS ORDERED: LORazepam TAB(*) 0.5 MG PO PRN (20:12)
[2018-04-23 22:35] LABS: INR 0.92 (0.77-1.02)
[2018-04-23 22:51] LABS: EGFR Non-African American 86.6 (>60)
[2018-04-23] MEDS: Senna TAB PO SCH (22:52)
[2018-04-23] MEDS: Heparin VIAL(*) 5000 UNITS/ML VIAL (FIVE THOUSAND) SUBCUT SCH (22:52)
[2018-04-23] MEDS: Docusate CAP* 100 MG PO SCH (22:53)
[2018-04-23] MEDS: Amoxicillin/Clavulanate TAB* 500 MG PO SCH (22:54)
[2018-04-23] MEDS: Lidocaine PATCH 5%* 1 PATCH TRANSDERM SCH (22:55)
[2018-04-23 23:21] LABS: Urine Appearance Clear; Urine Blood 3+ (Negative); Urine Color Yellow; Urine Ketones Negative (Negative); Urine Protein Negative (Negative); Urine Red Blood Cell 3+(>10/hpf) (Absent); Urine Specific Gravity 1.015 (1.010-1.030); Urine Urobilinogen Negative (Negative); Urine White Blood Cell 1+(6-10/hpf) (Absent)
--- NOTE | 2018-04-23 23:21 | HP ---
CC: Dr. Brittney Connor; Dr. Galo; Dr. Kenney.* HISTORY AND PHYSICAL: DATE OF ADMISSION: 04/23/18 PRIMARY CARE PROVIDER: Brittney Connor MD ATTENDING PHYSICIAN WHILE IN THE HOSPITAL: Lydia Cabrales DO * (report dictated by Syd Horvath NP). CHIEF COMPLAINT: Fall. HISTORY OF PRESENT ILLNESS: Mrs. Plascencia is an 87-year-old female patient. She has a history of COPD. She is on 2 L nasal cannula at all time, history of glaucoma, history of chronic back pain, history of degenerative disk disease, history of constipation. She comes into our ER today stating that she sustained a fall. She was going into the bathroom to her commode and next thing she knew she was on the floor. She is unsure if she fainted or not. She denied any chest pain prior to or after. She states that she landed on her right side. She states she did not hit her head, but she cannot be sure of this. She denied having any abdominal pain recently or any nausea, vomiting or diarrhea. She did admit to having some dysuria, recently infrequency. She is being treated for UTI currently with Augmentin. She denied having any fevers or chills. Denied any worsening shortness of breath. Denied having any again abdominal pain or any distention. She states she had no chest pain prior to or after. No palpitations, but she does not really be call the fall of the last issue. She just remembers going down. She did recall not hitting her head. Next thing she knew she was on the floor. The [facility] nursing staff was concerned. There was obviously she is having swelling on her right side and pain in her right shoulder. They brought her to the ER to be evaluated and she was found to have a proximal humerus fracture. Because of these findings we were asked to evaluate for admission. While in the ER she did admit to having passive suicidal ideation. She states that she just not want to continue going on. She felt like she was being a burden to others. When asking her about it if it was there in the ER and now, she states she is not feeling suicidal. She denied having any plan. She states she was frustrated with the overall situation. PAST MEDICAL HISTORY: 1. COPD, she is on 2 L chronically. 2. Glaucoma. 3. Chronic back pain. 4. Degenerative disk disease. 5. Constipation. PAST SURGICAL HISTORY: 1. She has had right hand surgeon. 2. Left hip ORIF. HOME MEDICATIONS: According to the [facility]: 1. Ativan 0.5 mg every 12 hours as needed. 2. Augmentin 500 mg p.o. b.i.d. for 3 more days. 3. Fleet enema 1 bottle NV daily as needed. 4. Zofran 4 mg every 6 hours as needed. 5. Flexeril 5 mg p.o. b.i.d. as needed. 6. Ventolin 2.5 mg every 6 hours as needed inhaled. 7. Protonix 40 mg p.o. daily. 8. Pataday 0.2% 1 drop both eyes q.p.m. as needed. 9. Milk of mag 30 cc p.o. daily as needed. 10. Vitamin D 5000 units p.o. daily. 11. Ventolin 2 puffs inhaled every 4 hours as needed. 12. Spiriva 1 capsule inhaled daily. 13. Betoptic 0.25% 1 drop both eyes q. p.m. 14. DuoNeb 1 neb inhaled every 6 hours as needed. 15. Maalox 30 cc every 6 hours as needed. 16. Tylenol 650 mg every 6 hours as needed. ALLERGIES: Her allergies to medications include CODEINE, SULFA and LACTULOSE causes intolerance. FAMILY HISTORY: Mother at the age 85 of old age according to her and her father was an alcoholic. SOCIAL HISTORY: She is a former smoker. She does not smoke anymore. She does not drink alcohol. She resides at [facility]. Surrogate decision maker is her daughter, Bk. REVIEW OF SYSTEMS: There is no documented fever. She denied having any significant weight change. There was no double vision. She denies having any ear discharge. There was no rhinorrhea. There is no sore throat. No thyroid enlargement. She denied having any chest pain. There is no orthopnea. There is no nocturnal dyspnea. She denied having any abdominal pain. There was no nausea or vomiting. There was report of dysuria and frequency, although being currently treated for UTI. There was question of loss of consciousness. No seizure. No pruritus and no skin ulceration. Review of 14 systems completed and otherwise negative. PHYSICAL EXAMINATION GENERAL: At this time, Mrs. Plascencia is an 87-year-old female patient. She appears to be chronically ill appearing rather and she is cachectic, does not appear to be in any acute distress. VITAL SIGNS: Blood pressure 140/72, pulse 80, respirations 18, O2 sat 97%, temperature pending. HEENT: Head: Atraumatic. Eyes: EOMs are intact. Sclerae anicteric, not pale. NECK: Supple. Throat: Oral mucosa appears to be dry. No oropharyngeal erythema. LUNGS: Clear to auscultation. There are was no wheezes, rales, or rhonchi. HEART: Sounds S1, S2. She had regular rate and rhythm. There was no murmur rubs or gallops. ABDOMEN: Soft. It was flat, nontender. Bowel sounds are present. EXTREMITIES: Distal CSM checks are intact to the right upper extremity. There was obvious deformity here. There is swelling and ecchymosis noted to the right shoulder, limited range of motion due to pain. Lower extremity she had 5/ 5 strength. NEUROLOGICAL: She is awake. She is oriented x3. Her speech clear. Tongue midline. She had no gross focal deficits. PSYCH: Again, she is pleasant. She is following commands appropriately. She did admit to saying that she did not want to continue going on because of the recent fall and the fracture shoulder she does not want to be a burden, but she denies any active plan and asking her again she denied current suicidal ideation she does state that she does feel depressed. DIAGNOSTIC STUDIES/LAB DATA: WBC 7.7, RBC of 3.55, hemoglobin of 8.9, last hemoglobin was 7.9 appears to be right about her baseline, hematocrit 27, and platelet count 218. Sodium 140, potassium 4.2, chloride 108, bicarb 27, BUN 19 , creatinine 0.69, glucose 107, calcium 9.0. Total bili 2.3, mag 2.0, AST 16, ALT 13, alk phos 44. Troponin 0.01. Albumin of 3.5. She had multiple imaging here in the ED. Elbow x-ray showed osteopenia. No acute osseous injury. The degree of osteopenia may make a nondisplaced fracture radiographically occult. If symptoms persist, recommend repeat imaging. Chest x-ray showed no active disease. CT spine, lumbar without osteopenia, chronic compression deformity of the T12-L2 , degenerative disk disease, and osteoarthritis. Pelvis x-ray osteopenia, postsurgical change, peripheral arterial disease, osteoarthritis, no acute osseous injury. The degree of osteopenia may make a nondisplaced fracture radiographically occult. Shoulder 2 view on the right comminuted fracture of the proximal humeral diaphysis, osteopenia, osteoporosis findings suggestive of chronic rotator cuff injury. She had an EKG obtained today this showing a normal sinus rhythm with a rate of 94. No ST elevation was noted. She had flat T-waves in 1 and along with V6 nonspecific 0 flat previously in lead 1 and on V6. Old medical records reviewed. ASSESSMENT AND PLAN: Mrs. Plascencia is an 87-year-old female patient coming into the ED today with complaints of a fall at the [facility] on evaluation she was found to have proximal humerus fracture. We are asked to evaluate for admission. She will be admitted under inpatient status. 1. Proximal humerus fracture secondary to fall possible syncope. Again, at this point, I have consulted orthopedics. Plan will be nonweightbearing, sling for comfort. Neurovascular checks every shift and p.r.n. pain control with Lidoderm and p.r.n. Dewey. 2. Possible syncope. I will go ahead and check her troponin, check echo and also blood pressures and also get a CT of the head. She is not really sure of the fall how it happened. My question is if she did have a syncopal episode, but we will monitor on tele and continue workup. 3. Chronic obstructive pulmonary disease. Continue meds as described. 4. Glaucoma. Continue her eyedrops. 5. Chronic back pain. I have ordered to discontinue her Dewey. 6. Degenerative disk disease. Continue her meds as prescribed. 7. History of chronic constipation. I have ordered bowel regimen for the patient. 8. Passive suicidal ideation and possible depression. Again, she does not have an active plan. She states this what appears to be in frustration secondary to the fall and the fact that she is having to stay at [facility], I did place a consult to psychiatry. She is not actively suicidal currently and she currently does not have a plan, so I do not believe she needs a one-to- one. I did discuss with my attending, they are in agreement. We will get psych involved for recommendations. 9. Deep vein thrombosis prophylaxis. She is high risk. I placed her on heparin subcu. 10. Code status. She is a DNR/DNI. We will try to get the MOLST form. 11. Fluids, electrolytes, and nutrition: Get regular diet. TIME SPENT: On this admission was 60 minutes, greater than half the time was spent [id number] with the patient obtaining my history and physical, other half of the time was spent going over the plan of care with the patient and implementing the plan of care. I discussed the plan of care with my attending, Dr. Cabrales, she is in agreement. SYD HORVATH, PRATEEK [id number]/CPS #: [id number] ROBERT
--- NOTE | 2018-04-24 00:05 | RAD ---
EXAM: CT Head Without Intravenous Contrast CLINICAL HISTORY: 87 years old, female; Injury or trauma; Fall; Initial encounter; Concussion / head injury; Injury date: ; Injury details: In pt fall; Additional info: Fall, syncope TECHNIQUE: Axial computed tomography images of the head/brain without intravenous contrast. All CT scans at this facility use at least one of these dose optimization techniques: automated exposure control; mA and/or kV adjustment per patient size (includes targeted exams where dose is matched to clinical indication); or iterative reconstruction. COMPARISON: BRAIN WO CT BRAIN WO 06/05/2013 6:43 PM FINDINGS: Brain: Mild periventricular and subcortical low attenuation without adjacent mass effect. No acute ischemic changes, extra axial fluid collections, intraparenchymal hemorrhage, or midline shift. Ventricles: The ventricles and extraventricular CSF spaces are widened although symmetrically positioned along the midline. Bones/joints: No acute fracture. No suspicious osseous lesions. Soft tissues: Normal. Vasculature: The vasculature demonstrates diffuse marked atherosclerotic calcification. Sinuses: Normal as visualized. Mastoid air cells: Multiple opacified bilateral mastoid air cells. No middle ear fluid. IMPRESSION: 1. No traumatic intracranial abnormalities. 2. Age-related atrophy and mild chronic small vessel ischemic disease. 3. Bilateral mastoid effusions.
[2018-04-24] MEDS: Heparin VIAL(*) 5000 UNITS/ML VIAL (FIVE THOUSAND) SUBCUT SCH ×3 (05:25→20:44)
[2018-04-24 05:26] LABS: ABS Basophils 0.1 10^3/ul (0-0.2); ABS Eosinophils 0.2 10^3/ul (0-0.6); ABS Lymphocytes 1.2 10^3/ul (1.0-4.8); ABS Monocytes 0.4 10^3/ul (0-0.8); ABS Neutrophils 5.4 10^3/ul (1.5-7.7); ABS Nucleated RBC 0 10^3/ul; Eosinophil % 2.4 % (0-6); Hematocrit 25 % (35-47); Hemoglobin 7.8 g/dl (12.0-16.0); Lymphocyte % 16.1 % (25-47); Mean Corpuscular HGB Conc 32 g/dl (31-36); Mean Corpuscular Hemoglobin 25 pg (27-31); Mean Corpuscular Volume 77 fL (80-97); Mean Platelet Volume 7.3 um3 (7.4-10.4); Nucleated Red Blood Cells % 0; Platelet Count 190 10^3/ul (150-450); Red Blood Count 3.18 10^6/ul (4.00-5.40); Red Cell Distribution Width 20 % (10.5-15); White Blood Count 7.2 10^3/ul (3.5-10.8)
[2018-04-24 05:31] LABS: INR 0.96 (0.77-1.02)
[2018-04-24] MEDS: Tiotropium CAP.INH* CAP.INH/18 MCG (USE ORDER SET !) INH SCH (07:55)
--- NOTE | 2018-04-24 08:46 | PN ---
Subjective Date of Service: 04/24/18 Interval History: Ms. Plascencia reports that she is feeling relatively well today and denies any specific complaint. Objective Active Medications: Acetaminophen (Tylenol Tab*) 650 mg PO Q4H PRN Hydrocodone Bitart/Acetaminophen ([place] 5-325 Tab*) 1 tab PO Q4H PRN Al Hydrox/Mg Hydrox/Simethicone (Maalox Plus*) 30 ml PO Q6H PRN Amoxicillin/Clavulanate Potassium (Augmentin Tab*) 500 mg PO BID ALIRIO Betaxolol HCl (Betoptic-S 0.25%*) 1 drop BOTH EYES QPM ALIRIO Cholecalciferol (Vitamin D Tab*) 5,000 units PO DAILY ALIRIO Cyclobenzaprine HCl (Flexeril Tab*) 5 mg PO BID PRN Device (Tiotropium Inhaler Device*) 1 each INH 0900 ONE Docusate Sodium (Colace Cap*) 100 mg PO BID ALIRIO Heparin Sodium (Porcine) (Heparin Vial(*)) 5,000 units SUBCUT Q8HR ALIRIO Lidocaine (Lidoderm 5% Patch*) 1 patch TRANSDERM 2100 ALIRIO Lorazepam (Ativan Tab(*)) 0.5 mg PO Q12HR PRN Omeprazole (Prilosec Cap*) 20 mg PO DAILY ALIRIO Ondansetron HCl (Zofran Inj*) 4 mg IV Q6H PRN Pharmacy Profile Note (Lidocaine Patch Remove*) 1 note PATCH OFF 0900 ALIRIO Senna (Senokot Tab*) 2 tab PO BEDTIME ALIRIO Tiotropium Starks (Spiriva Cap.Inh*) 1 cap INH QAM ALIRIO Vital Signs: Temp Pulse Resp BP Pulse Ox 97.8 F 88 16 145/72 100 04/24/18 03:57 04/24/18 07:58 04/24/18 03:57 04/24/18 03:57 04/24/18 03:57 Oxygen Devices in Use Now: Nasal Cannula Appearance: Elderly female sitting up in bed in NAD Eyes: No Scleral Icterus Ears/Nose/Mouth/Throat: Mucous Membranes Moist Neck: Trachea Midline Respiratory: Symmetrical Chest Expansion and Respiratory Effort, Clear to Auscultation Cardiovascular: NL Sounds; No Murmurs; No JVD, No Edema Abdominal: NL Sounds; No Tenderness; No Distention Extremities: No Edema, - - Right arm in sling, + CMS distally Skin: No Rash or Ulcers Neurological: Alert and Oriented x 3, NL Muscle Strength and Tone Nutrition: Taking PO's Result Diagrams: 04/24/18 05:15 04/24/18 05:15 Assess/Plan/Problems-Billing Assessment: Ms. Plascencia is an 87 yo F with a PMH of COPD on [facility] who was admitted on 04/23/18 after a fall with possible syncope and a right proximal humerus fracture. - Patient Problems (1) Humerus fracture Comment: - Hx of osteoporosis - Appreciate ortho consult, will need sling and to follow up outpatient with ortho. - Pain meds prn with bowel regimen. (2) Syncope Comment: - Patient doesn't have a clear memory of events leading to fall, may have syncopized. - Patient with hx of orthostatic hypotension and was orthostatic today. - Plan for 500ml NS to support BP. (3) Anemia Comment: - Hgb 7.8, microcytic. - Has been low for several months. - Check iron studies, B12, folate, stool for occult blood. - Suspect in part related to chronic disease and malnutrition. (4) UTI (urinary tract infection) Comment: - Continue treatment started outpatient, augmentin. - UA negative, hx of frequent UTIs. (5) Chronic back pain Comment: - Continue supportive care and pain meds as needed (6) Suicidal ideation Comment: - Psych consult pending. - Patient denies suicidal ideation to me. (7) Constipation Comment: - Chronic issues due to decreased mobility, advanced age and chronic back pain (8) Protein-calorie malnutrition, severe Comment: - BMI of 15.1 with muscle wasting and weakness - Continue supportive care (9) COPD (chronic obstructive pulmonary disease) Comment: - No evidence of exacerbation - Continue spiriva, albuterol as needed for SOB, supplemental O2 (10) Glaucoma Comment: - Continue home eye drops (11) DVT prophylaxis Comment: - Heparin SubQ (12) DNR (do not resuscitate) Status and Disposition: OBV. [facility] medically stable.
[2018-04-24] MEDS ORDERED: Spiriva Inhaler DEVICE* 1 EACH DEVICE INH ONE (09:00)
[2018-04-24] MEDS: Cholecalciferol TAB* 1000 UNITS PO SCH (09:06)
[2018-04-24] MEDS: Omeprazole CAP* 20 MG PO SCH (09:07)
[2018-04-24] MEDS: Amoxicillin/Clavulanate TAB* 500 MG PO SCH ×2 (09:07→20:36)
[2018-04-24] MEDS: Lidocaine Patch REMOVE* 1 NOTE MISC PATCH OFF SCH (09:07)
[2018-04-24] MEDS: Docusate CAP* 100 MG PO SCH ×2 (09:07→20:41)
[2018-04-24] MEDS ORDERED: NS 0.9% 500 ML* 500 ML IV ONE (15:18)
[2018-04-24] MEDS: Cyclobenzaprine TAB* 10 MG PO PRN ×2 (15:23→20:38)
--- NOTE | 2018-04-24 16:37 | CONSULT ---
Consult Consult: Psychiatry is asked to see Ms. Plascencia after she made a suicidal statement in the ED. She denies SI today and does not require psychiatric hospitalization. She is psychiatrically cleared for discharge and psychiatry is signing off. Please see full dictated consult to follow.
--- NOTE | 2018-04-24 17:23 | CONS ---
ORTHOPEDIC CONSULT NOTE: DATE OF CONSULT: 04/24/18 CHIEF COMPLAINT: Right shoulder pain. HISTORY OF PRESENT ILLNESS: Ms. Plascencia an 87-year-old right hand dominant female who had a fall in [facility] when going to her commode. She does not know how she fell. She is unsure if she fainte d. She landed on the right side and immediately upon awakening had 10/10 pain in the right shoulder. Any attempt to move the right shoulder, increased her pain and only immobilization decreased her pa in. The patient was taken to [facility] Emergency Room and diagnosed with a right proximal hum erus fracture. She is admitted for evaluation. I am consulted for orthopedic fracture care. PAST MEDICAL HISTORY: COPD, glaucoma, chronic back pain, negative disk disease, constipation, sylvia ia. PAST SURGICAL HISTORY: Right hand surgery, unspecified type; left hip ORIF. MEDICATIONS: Home medications: 1. Ativan 0.5 mg p.o. b.i.d. 2. Augmentin 500 mg p.o. b.i.d. for 3 more days. 3. Fleet Enema p.r. daily as needed. 4. Zofran 4 mg q.6 hours p.r.n. 5. Flexeril 5 mg p.o. b.i.d. as needed. 6. Ventolin 2.5 mg every 6 hours inhaled. 7. Protonix 40 mg p.o. daily. 8. Pataday 0.2% one drop both eyes q.p.m. as needed. 9. Vitamin D 5000 units p.o. daily. 10. Spiriva 1 capsule inhaled daily. 11. Betoptic 0.25% one drop both eyes q.p.m. 12. DuoNeb 1 neb inhaled every 6 hours p.r.n. 13. Maalox 30 cc q.6 hours p.r.n. 14. Tylenol 650 mg p.o. q.6 hours p.r.n. ALLERGIES: The patient's allergies include CODEINE, SULFA, LACTULOSE. FAMILY HISTORY: Alcoholism, paternal. SOCIAL HISTORY: The patient lives at [facility]. Her surrogate decision makers, her daughter, Terr y. No tobacco, alcohol, or recreational drugs. Right hand dominant. REVIEW OF SYSTEMS: Fourteen systems reviewed with the patient today, positive for right shoulder janie n, recent fall, question of loss of consciousness, recent UTI being treated now with Augmentin, other call the patient reports review of systems is negative or not relevant. PHYSICAL EXAM: Vitals: Temperature 97.8, pulse of 88, blood pressure 145/72. General: The patient is a thin female, in no apparent distress, alert and oriented x2 to person and place, not time; pleas ant mood and appropriate affect. Gait not assessed. HEENT: Atraumatic, normocephalic. Pupils equa l and reactive to light. Chest: Unlabored breathing. Abdomen: Soft, nontender, nondistended. Right upper extremity, the patient's skin is intact. No abrasions or open wounds. She has significant swe lling and tenderness to palpation along the proximal humerus. She reports intact sensation around th e deltoid. No palpable masses or lymph nodes. Distally, she can move the wrist with 4/5 strength bec ause of pain inhibition. She demonstrates thumps-up, A-okay, and cross finger sign. 2+ palpable radi al pulse. No edema, varicosities or hyporeflexia. Left upper extremity, the patient's skin is intact . No bony tenderness to palpation. No palpable masses or lymph nodes. She can forward flex at the s houlder, 4+/5 heat curer strength. Full sensation to light touch in the ulnar distribution and 2+ palpable radial pulse. Bilateral lower extremities, the patient is complaining of heel pain. When I take of f her socks, I see no visible redness or ulcer around the heel. She can flex and extend at the hips and knees. Skin is intact. No bony tenderness to palpation. No palpable masses or lymph nodes. 4+ /5 dorsiflexion, plantarflexion strength. Full sensation to light touch in the ulnar distributions a nd 2+ palpable DP pulses. No hyperreflexia or edema. Some minimal scattered varicosities. DIAGNOSTIC STUDIES/LAB DATA: On 04/24/18 labs show white blood cell 7.2, hematocrit 25, platelets 19 0. INR is 0.96. Sodium 138, potassium 4.3, BUN and creatinine 16 and 0.72. Urinalysis from 8 is positive for white blood cells, red blood cells, and epithelial cells. Multiple radiographs are reviewed on the PACS system. There is a brain CT from 04/23/18 showing age related atrophy and ischemic disease, but intracranial abnormality, bilateral mastoid effusions. The re is a lumbar spine CT showing no traumatic abnormalities, but multilevel lumbar spondylopathy. I r eviewed an AP pelvis, which showed no obvious fracture of the right hip. There is an old cephalomedu llary device in the left hip. Elbow x-ray showed no obvious fracture or dislocation. Multiple views of the patient's right shoulder are reviewed, which show a proximal humeral shaft fracture with disp lacement and comminution, this is at the junction of the diaphysis and metaphysis. There is signific ant osteopenia and superior subluxation of the humeral head on the glenoid indicating chronic rotator cuff arthropathy. ASSESSMENT AND PLAN: Ms. Plascencia is an 87-year-old right hand dominant female. She is a resident of [facility] had a fall yesterday on 04/23/18. She does have a fracture of the proximal humeral shaf t. This has some displacement and comminution. The patient and I discussed operative and nonoperative treatment options. I would recommend, because of her age and osteopenia, nonoperative care. I do feel this fracture will heal; treatment with a s ling and nonweightbearing right upper extremity. I feel the patient would be high risk for surgery a nd her bone would be extremely osteopenic. I think the chance of hardware failure and failure to hea l after surgery would be high. The patient understands my opinion. She should be placed in a sling and have the arm hang to gravity for comfort. She will have p.r.n. analgesia. I ordered heel booties as she is verbalizing heel janie n and we want to of course avoid a decubitus ulcer here. The patient will likely be discharged back to [facility]. I would like to see her in the office in 1 week's time for recheck and repeat x-rays. Please call [phone] for an appointment with me. Thank you for this orthopedic consultation. [id number]/[facility] #: [id number]
[2018-04-24] MEDS ORDERED: Betaxolol-S 0.25%* 10 ML BTL BOTH EYES SCH (18:00)
--- NOTE | 2018-04-24 20:24 | ECHO ---
Patient: WASHINGTON SCHWARTZ [facility] Rec#: [id number] : 1930 Date: 04/24/2018 Age: 87y Height: 152.4 cm / 60.0 in Weight: 40 kg / 88.2 lbs Sex: F BSA: 1.3 Room#: [facility] Admit Date#: 04/23/2018 Type: Inpatient Referring: Syd Horvath NP Reading: Sid Milian MD Music Librarian: Merna Banegas RN RDCS CC: Brittney Connor MD Transthoracic Echocardiogram Indication: Syncope BP: 145/72 HR: 86 Rhythm: NSR Findings History: COPD, former smoker, fall resulting in right humerus fracture. Technical Comments: The study quality is fair. The study is technically limited due to the patient's history of COPD. The study was technically limited due to the patient's inability to lay in the left lateral decubitus position. Left Ventricle: The left ventricular chamber size is decreased. There is increased basal septal hypertrophy noted without evidence of an increased gradient across the left ventricular outflow tract. Septal knuckle measures 1.5cm. Global left ventricular wall motion and contractility are within normal limits. There is normal left ventricular systolic function. The estimated ejection fraction is greater than 65%. Abnormal left ventricular diastolic filling is observed, consistent with impaired relaxation. Left Atrium: The left atrial chamber size is normal. Right Ventricle: The right ventricular chamber size and systolic function are within normal limits. Right Atrium: The right atrial cavity size is normal. Aortic Valve: The aortic valve is trileaflet. The aortic valve leaflets are mildly thickened. There is no evidence of aortic regurgitation. There is no evidence of aortic stenosis. Mitral Valve: There is mitral annular calcification. The mitral valve leaflets are mildly thickened. Mitral valve leaflet mobility is mildly restricted.related to MAC (particularly the posterior leaflet). There is a trace of mitral regurgitation. There is no evidence of mitral stenosis. Tricuspid Valve: The tricuspid valve leaflets are normal. There is moderate tricuspid regurgitation. There is evidence of moderate pulmonary hypertension. There is no tricuspid stenosis. Pulmonic Valve: The pulmonic valve appears normal. There is a trace pulmonic regurgitation. There is no pulmonic stenosis. Pericardium: There is no significant pericardial effusion. Aorta: There is mild dilatation of the ascending aorta. The aortic arch is not well visualized. There is no dilation of the aortic root. Pulmonary Artery: The main pulmonary artery is not well visualized. Venous: The venous system is not well visualized. The inferior vena cava is not visualized. Summary: There was not any prior study for comparison. Conclusions There is increased basal septal hypertrophy noted without evidence of an increased gradient across the left ventricular outflow tract. Abnormal left ventricular diastolic filling is observed, consistent with impaired relaxation. The estimated ejection fraction is greater than 65%. Mitral valve leaflet mobility is mildly restricted related to MAC (particularly the posterior leaflet). There is a trace of mitral regurgitation. There is moderate tricuspid regurgitation. There is evidence of moderate pulmonary hypertension. Measurements Name Value Normal Range RVDdMajor (2D) 3.2 cm (2.2 - 4.4) RAd ISD 4CH 4.3 cm (3.4 - 4.9) RA (A4C)W 2.8 cm (2.9 - 4.6) IVSd (2D) 0.9 cm (0.6 - 1) LVPWd (2D) 0.7 cm (0.6 - 1) LVIDd (2D) 3.3 cm (3.6 - 5.4) LVIDs (2D) 2.1 cm - LV FS (2D) 36 % (25 - 45) Aortic Annulus 1.8 cm (1.4 - 2.6) Ao root diameter (2D) 2.8 cm (2.1 - 3.5) Ascending Ao 3.5 cm (2.1 - 3.4) LA dimension (AP) 2D 3.5 cm (2.3 - 3.8) LAd ISD 4CH 4.4 cm (2.9 - 5.3) LA ISD 4CH W 3.2 cm (2.5 - 4.5) Name Value Normal Range LA ESV BP (A/L) index 23.9 ml/m2 - Name Value Normal Range MV E-wave Vmax 0.78 m/sec - MV deceleration time 197 msec - MV A-wave Vmax 1.2 m/sec - LV septal e' Vmax 0.05 m/sec - LV lateral e' Vmax 0.08 m/sec - LV E:e' septal ratio 15.6 ratio - LV E:e' lateral ratio 9.8 ratio - Name Value Normal Range AV Vmax 1.5 m/sec - AV VTI 29.1 cm - AV peak gradient 9 mmHg - AV mean gradient 5 mmHg - LVOT Vmax 1.3 m/sec - LVOT VTI 23.1 cm - LVOT peak gradient 7 mmHg - LVOT mean gradient 4 mmHg - Name Value Normal Range TR Vmax 3.4 m/sec - TR peak gradient 46 mmHg - RAP 8 mmHg - RVSP 54 mmHg - Name Value Normal Range PV Vmax 0.98 m/sec -
[2018-04-24] MEDS: Lidocaine PATCH 5%* 1 PATCH TRANSDERM SCH (20:26)
[2018-04-24] MEDS: Senna TAB PO SCH (20:44)
--- NOTE | 2018-04-24 23:23 | CONS ---
CONSULTATION REPORT: DATE OF CONSULT: 04/24/18 ATTENDING CLINICIAN: Harini Martel NP ATTENDING PHYSICIAN: Abdoulaye Kenney MD REASON FOR CONSULT: Suicidal ideations. 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 The patient apparently fell at [facility] breaking her arm. Up until this point, she felt she was making progress in occupational therapy and had even started having hope that she would be discharged from [facility] to live more independently with one of her daughters back in the community. These plans are now scuttled and she feels discouraged. She does admit to making the suicidal statement to the emergency room attending, saying "how would you feel if you are me." She indicates that at this stage in her life she lives with chronic pain and has no further hope of ever living independently. She endorses suicidal ideations with no plans. She states "at my age you just hope that comes with no pain." I did screen her for neurovegetative symptoms of depression and she does endorse difficulty sleeping, anhedonia, guilt, poor energy. She denies psychomotor retardation or concentration difficulties. She does endorse some longing for , but denies any thought whatsoever to hasten this by attempting to harm herself, saying that she would never do that to her 2 remaining children and 11 great grandchildren. I did ask the patient about antidepressant therapy and she states that she had been on mirtazapine in the past, but this gave her nightmares and she is reluctant to try any new antidepressant formulations. She denies any history of psychosis or manic episodes. PAST PSYCHIATRIC HISTORY: The patient was treated by Dr. Connor, her former local primary care provider, with mirtazapine, but stopped taking this a year ago due to side effects. She has never been psychiatrically hospitalized and has never attempted suicide. SUBSTANCE ABUSE HISTORY: Noncontributory. PAST MEDICAL HISTORY: COPD, glaucoma, chronic back pain, degenerative disk disease, constipation, as well as fracture of the right humerus. FAMILY HISTORY: Her son in 2007 of complications of the alcoholism. SOCIAL HISTORY: The patient was born in [place] and moved to several places, ultimately settling with her ex- in [place]. 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 The patient worked there until her early 60s when she retired. She had 3 total children. Her 2 daughters still reside in the area. Her son is . She has 6 grandchildren and 11 great grandchildren. The patient is involved in social activities at [facility], but has difficulty experiencing pleasure from these. MENTAL STATUS EXAM: The patient is an extremely slender, frail looking elderly woman with thinning singer hair. She is calm, cooperative, makes good eye contact. Speech has a normal rate, tone, and volume. Mood is depressed with a somewhat constricted affect. Thought process is linear and goal directed. Thought content is significant for her thoughts of being sick, of being in chronic pain. She denies current suicidal intentions, but does endorse some passive wish. She denies auditory or visual hallucinations. Denies violent thoughts towards others. Insight and judgment are fair given her willingness to receive treatment. She is declining antidepressant, however, due to side effect fears. Cognitively, she is awake and alert and quite intelligent. DIAGNOSES: Bieber I: Major depressive disorder, single episode, moderate. Bieber II : Deferred. ASSESSMENT: The patient is an 87-year-old white female with a history of depression, who comes in from [facility] where she had fallen and broken her arm and then made a passive suicidal statement to the emergency room physician prompting psychiatric consultation. At this time, the patient continues to endorse some low-level passive suicidality as well as symptoms of major depressive disorder; however, she is reluctant to accept treatment given bad experiences with mirtazapine in the past. I have encouraged her to reconsider and talk to her provider at [facility] in the event that she changes her mind. RECOMMENDATIONS TO PRIMARY TEAM: The patient is not in any need of any psychiatric inpatient care, although I do believe that she would benefit from low-dose antidepressant therapy. I understand her reasoning for declining this and she can reconsider at any point. The patient is psychiatrically cleared and Psychiatry will be signing off. Thank you for the interesting consult. [id number]/[facility] #: [id number] ROBERT
[2018-04-25] MEDS: HYDROcodone/ACETAMIN 5-325 MG* 1 TAB PO PRN ×2 (05:24→14:34)
[2018-04-25] MEDS: Heparin VIAL(*) 5000 UNITS/ML VIAL (FIVE THOUSAND) SUBCUT SCH ×2 (05:27→12:54)
[2018-04-25] MEDS: Cholecalciferol TAB* 1000 UNITS PO SCH (07:32)
[2018-04-25] MEDS: Omeprazole CAP* 20 MG PO SCH (07:32)
[2018-04-25] MEDS: Amoxicillin/Clavulanate TAB* 500 MG PO SCH (07:32)
[2018-04-25] MEDS: Lidocaine Patch REMOVE* 1 NOTE MISC PATCH OFF SCH (07:33)
[2018-04-25] MEDS: Docusate CAP* 100 MG PO SCH (07:33)
--- NOTE | 2018-04-25 07:37 | PN ---
Subjective Date of Service: 04/25/18 Interval History: Ms. Plascencia reports some right hip pain today but has good ROM. She also reports right shoulder pain but only when she moves the arm. She also reported that she was up urinating frequently during the night but denies dysuria. She further denies chest pain, SOB, nausea, or abdominal pain. Objective Active Medications: Acetaminophen (Tylenol Tab*) 650 mg PO Q4H PRN Hydrocodone Bitart/Acetaminophen ([place] 5-325 Tab*) 1 tab PO Q4H PRN Al Hydrox/Mg Hydrox/Simethicone (Maalox Plus*) 30 ml PO Q6H PRN Amoxicillin/Clavulanate Potassium (Augmentin Tab*) 500 mg PO BID ALIRIO Betaxolol HCl (Betoptic-S 0.25%*) 1 drop BOTH EYES QPM ALIRIO Cholecalciferol (Vitamin D Tab*) 5,000 units PO DAILY ALIRIO Cyclobenzaprine HCl (Flexeril Tab*) 5 mg PO TID PRN Docusate Sodium (Colace Cap*) 100 mg PO BID ALIRIO Heparin Sodium (Porcine) (Heparin Vial(*)) 5,000 units SUBCUT Q8HR [facility] Lidocaine (Lidoderm 5% Patch*) 1 patch TRANSDERM 2100 ALIRIO Lorazepam (Ativan Tab(*)) 0.5 mg PO Q12HR PRN Omeprazole (Prilosec Cap*) 20 mg PO DAILY ALIRIO Ondansetron HCl (Zofran Inj*) 4 mg IV Q6H PRN Pharmacy Profile Note (Lidocaine Patch Remove*) 1 note PATCH OFF 0900 ALIRIO Senna (Senokot Tab*) 2 tab PO BEDTIME ALIRIO Tiotropium [place] (Spiriva Cap.Inh*) 1 cap INH QAM [facility] Vital Signs: Temp Pulse Resp BP Pulse Ox 98.4 F 84 18 148/76 100 04/25/18 03:40 04/25/18 07:27 04/25/18 07:27 04/25/18 07:27 04/25/18 03:40 Oxygen Devices in Use Now: Nasal Cannula Appearance: Elderly female lying in bed in NAD Eyes: No Scleral Icterus Ears/Nose/Mouth/Throat: Mucous Membranes Moist Neck: Trachea Midline Respiratory: Symmetrical Chest Expansion and Respiratory Effort, Clear to Auscultation Cardiovascular: NL Sounds; No Murmurs; No JVD, No Edema Abdominal: NL Sounds; No Tenderness; No Distention Lymphatic: No Cervical Adenopathy Extremities: No Edema, - - Right arm in sling Skin: No Rash or Ulcers Neurological: Alert and Oriented x 3, NL Muscle Strength and Tone Nutrition: Taking PO's - Nutrition: Malnutrition Diagnosis/Plan Malnutrition Assessment by Registered Dietitian: Malnutrition Assessment Clinical Characteristics Acute,Severe Malnutrition Assessment: sig wt loss (>10% x 6 mos) (12-13% x 6 mos) Criteria <or=50% of EEE x >or= 5days body fat loss: severe - per visual assessment muscle wasting: severe - per visual assessment Malnutrition Assessment: lucille milkshake @ 3 pm daily (~250 kcal, 8 g pro ) Interventions monitor intake (>50% of meals goal) Malnutrition Assessment: Goals 1. Pt will tolerate PO without difficulty chewing - food cut to small pieces 2. Intake will be >50% of meals and will support fx healing and wt maintenance/gain Result Diagrams: 04/24/18 05:15 04/24/18 05:15 Microbiology and Other Data: . Assess/Plan/Problems-Billing Assessment: Ms. Plascencia is an 87 yo F with a PMH of COPD on 2L NC from [facility] who was admitted on 04/23/18 after a fall with possible syncope and a right proximal humerus fracture. - Patient Problems (1) Humerus fracture Comment: - Hx of osteoporosis - Appreciate ortho consult, will need sling and to follow up outpatient with ortho. - Pain meds prn with bowel regimen. (2) Syncope Comment: - Patient doesn't have a clear memory of events leading to fall, may have syncopized. - Patient with hx of orthostatic hypotension, BP improved with IVF. (3) Anemia Comment: - Hgb 7.8, microcytic. - Has been low for several months. - Iron slightly decreased but hesitant to start iron supplementation given hx of severe chronic constipation in the past. Stool for occult blood checked last month and was negative. - Recommend outpatient monitoring and follow up as wanted per patient and family. - Suspect in part related to chronic disease and malnutrition. (4) UTI (urinary tract infection) Comment: - Continue treatment started outpatient, augmentin. - UA negative, hx of frequent UTIs. (5) Chronic back pain Comment: - Continue supportive care and pain meds as needed (6) Suicidal ideation Comment: - Psych consult appreciated, no suicidal ideation or risk. (7) Constipation Comment: - Chronic issues due to decreased mobility, advanced age and chronic back pain (8) Protein-calorie malnutrition, severe Comment: - BMI of 15.1 with muscle wasting and weakness - Continue supportive care (9) COPD (chronic obstructive pulmonary disease) Comment: - No evidence of exacerbation - Continue spiriva, albuterol as needed for SOB, supplemental O2 (10) Glaucoma Comment: - Continue home eye drops (11) DVT prophylaxis Comment: - Heparin SubQ (12) DNR (do not resuscitate) Status and Disposition: Discharge to [facility]
[2018-04-25] MEDS: Tiotropium CAP.INH* CAP.INH/18 MCG (USE ORDER SET !) INH SCH (07:38)
[2018-04-25 10:42] LABS: Urine Appearance Clear; Urine Blood 1+ (Negative); Urine Color Straw; Urine Ketones Negative (Negative); Urine Protein Negative (Negative); Urine Red Blood Cell Trace(0-2/hpf) (Absent); Urine Specific Gravity 1.009 (1.010-1.030); Urine Urobilinogen Negative (Negative); Urine White Blood Cell Trace(0-5/hpf) (Absent)
[2018-04-25 11:51] VITALS: BP 129/52
--- NOTE | 2018-04-25 14:36 | DS ---
CC: Dr. Connor * [facility] MEDICINE DISCHARGE SUMMARY: DATE OF ADMISSION: 04/23/18 DATE OF DISCHARGE: 04/25/18 PRIMARY CARE PROVIDER: Brittney Connor MD ATTENDING PHYSICIAN: Dr. Tigre Campos * (dictation provided by Harini Martel NP ). PRIMARY DIAGNOSIS: Right humerus fracture status post fall. SECONDARY DIAGNOSES: 1. History of chronic anemia. 2. Chronic obstructive pulmonary disease, on 2 liters chronically. 3. Glaucoma. 4. Chronic back pain. 5. Degenerative disk disease. 6. History of constipation. 7. History of orthostatic hypotension. 8. Severe protein-calorie malnutrition. PAST SURGICAL HISTORY: 1. History of right hand surgery. 2. Left hip ORIF. MEDICATIONS AT THE TIME OF DISCHARGE: 1. Lorazepam 0.5 mg p.o. q.12 hours p.r.n. 2. Augmentin 500 mg p.o. b.i.d. (complete course for urinary tract infection, started outpatient). 3. Fleet Enema p.r.n. 4. Zofran 4 mg p.r.n. 5. Albuterol 2.5 mg inhaled q.6 hours p.r.n. 6. Pantoprazole 40 mg p.o. daily. 7. Olopatadine 0.2% 1 drop both eyes q.p.m. p.r.n. 8. Magnesium hydroxide 30 mL p.o. q.6 hours p.r.n. 9. Cholecalciferol 5000 units p.o. daily. 10. Albuterol inhaler 2 puffs inhaled q.4 hours p.r.n. 11. Spiriva 1 cap inhaled q.a.m. 12. Betaxolol 0.25% 1 drop both eyes q.p.m. 13. DuoNeb 1 nebulizer q.6 hours p.r.n. 14. Maalox 30 mL p.o. q.6 hours p.r.n. 15. Tylenol 650 mg p.o. q.6 hours p.r.n. 16. Lidocaine patch 5%, 1 patch to hip and 1 patch to shoulder daily as needed for pain. 17. Flexeril 5 mg p.o. t.i.d. p.r.n. (increased dose). HOSPITAL COURSE: Ms. Plascencia is an 87-year-old female with a past medical history as outlined above, who presented to the emergency room on 04/23/18 after a fall with pain in her right arm. Please see dictated H and P from Syd Horvath NP, for complete details. In brief, the patient sustained a fall when she was going into the bathroom to go to the commode. She do not have any clear recollection of the events and was unsure if she lost consciousness. It was noted that she had been having some dysuria recently and was started on treatment with Augmentin for a suspected urinary tract infection. In the emergency room, Ms. Plascencia had multiple imaging studies including chest x- ray, which read as follows: "No active cardiopulmonary disease." Elbow x- ray: "Osteopenia, no acute osseous injury." Lumbar spine CT: "No lumbar spine traumatic abnormalities, mild multi-level lumbar spondylopathy." Pelvis x-ray: "Osteopenia, post surgical change, peripheral arterial disease, osteoarthritis, no acute osseous injury." Shoulder x-ray: "Showed comminuted fracture of the proximal humeral diaphysis with osteopenia and osteoporosis." Ms. Plascencia was admitted to the hospital for right humerus fracture and workup for possible syncope. For syncope workup, she was monitored on the telemetry unit with no evidence of arrhythmia. She went on for transthoracic echo- cardiogram, show an ejection fraction of 65% and with diastolic filling defect, but no significant valvular abnormalities. Note there is also evidence of moderate pulmonary hypertension. For her humerus fracture, she was seen in consultation by Dr. Santa Galo and she recommended non-operative treatment management given her age and osteopenia. She is it to have a sling and will be nonweightbearing on the right upper extremity. She can follow up in Dr. Galo' s office in 1 week's time. Ms. Plascencia is feeling better today. She has continued pain in her right shoulder and also in her right hip. Imaging to the right hip was negative as was the examination by the orthopedic surgeon, Dr. Galo. I suspect that she just has a soft tissue injury and I have recommended that she can use lidocaine both on the hip and the shoulder as needed as she likes to avoid narcotics if possible and also has a history of chronic constipation. In terms of the fall, I think the patient has a chronic orthostatic hypotension. She is also chronically anemic and is a frail elderly female with a BMI of 15 with severe protein-calorie malnutrition. I think she needs to have assistance anytime she is up out of bed given that she is high risk for falls. In terms of her anemia , I would recommend that further workup would be undertaken at the discretion of the primary care physician after conversation with the family and the patient. The patient seems to be interested in very limited medical interventions. I would also strongly recommend a hospice consult. DISPOSITION: To [facility]. DIET: Regular with high-calorie foods as tolerated. ACTIVITY: Nonweightbearing, right upper extremity. FOLLOWUP PLAN: Please follow up with Dr. Connor and the physicians at [facility] regarding chronic medical conditions and any workup or treatment as preferred per family and patient. Please consider followup for hospice given the patient's wishes for limited care. TIME SPENT: Approximately 60 minutes were spent in discharge of this patient, more than half the time with her at the bedside reviewing the events leading up to this hospitalization, performing physical examination, and reviewing the plan of care. HARINI MARTEL, PRATEEK [id number]/[facility] #: [id number] ROBERT
[2018-04-25] MEDS ORDERED: Lidocaine PATCH 5%* 1 PATCH TRANSDERM SCH (21:00)
[2018-04-26] MEDS ORDERED: Lidocaine Patch REMOVE* 1 NOTE MISC PATCH OFF SCH (09:00)
== END 2018-04-25 16:05 ==
LOC: ED 13:30 → MED 19:49
PROVIDERS: ADMIT Hospitalist; ATTEND Internal Medicine
DX: S49.001A Unspecified physeal fracture of upper end of humerus, right arm, initial encounter for closed fracture (principal); W18.30XA Fall on same level, unspecified, initial encounter; M25.551 Pain in right hip; F32.9 Major depressive disorder, single episode, unspecified; R45.851 Suicidal ideations; D64.9 Anemia, unspecified; J44.9 Chronic obstructive pulmonary disease, unspecified; H40.9 Unspecified glaucoma; M54.9 Dorsalgia, unspecified; G89.29 Other chronic pain; M51.36 Other intervertebral disc degeneration, lumbar region; E43 Unspecified severe protein-calorie malnutrition; Z79.899 Other long term (current) drug therapy; Z87.891 Personal history of nicotine dependence; Z88.2 Allergy status to sulfonamides; Z88.8 Allergy status to other drugs, medicaments and biological substances; I73.9 Peripheral vascular disease, unspecified; R94.31 Abnormal electrocardiogram [ECG] [EKG]
CPT/HCPCS: 36415; 70450; 71045; 72131; 72170; 80048; 80053; 81003; 81015; 82565; 82607; 82728; 82746; 83540; 83550; 83735; 84484; 84520; 85025; 85610; 85730; 87077; 87086; 87186; 87641; 93005; 93306; 94640; 96374; 96375; 99284; A9270-GY; G0378; J1644; J2270; J2405

== ENCOUNTER 2018-05-18 11:15 | Observation (INO) | payer MEDICARE, OTHER ==
[2018-05-18] MEDS ORDERED: NS 0.9% 500 ML* 500 ML IV ONE ×2 (11:33→12:26)
[2018-05-18] MEDS ORDERED: cefTRIAXone(*) 1 GM in NS 0.9% 50 ML* 50 ML IVPB ONE (12:10)
--- NOTE | 2018-05-18 12:22 | ED ---
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 Pt was at her PCPs office with her daughter for f/u of R humeral head fracture. Pt became cold and had syncopal episode. Pt did not hit her head, did not fall to the floor. Associated sx: chills, abd pain, dizziness , blurry vision. Denies: sore throat, v/d, back pain. She has been having issues of dysphagia and has been working with a therapist for that. Pt lives at [facility]. - History Of Current Complaint Chief Complaint: EDSyncope Hx Obtained From: Patient Onset/Duration: Sudden Onset, Resolved Timing: Minutes Context: Witnessed, Loss Of Consciousness Activity At Onset: At Rest Associated Head Trauma: No Alleviating Factor(s): Spontaneous Resolution Associated Signs And Symptoms: Dizzy, Other - pos: abd pain; chills; blurred vision. neg: v/d, back pain, sore throat. - Allergies/Home Medications Allergies/Adverse Reactions: Allergies Allergy/AdvReac Type Severity Reaction Status Date / Time codeine Allergy Abdominal Verified 02/21/18 10:08 Pain lactose Allergy GI Upset Verified 02/21/18 10:08 Sulfa (Sulfonamide Allergy Swelling Verified 02/21/18 10:08 Antibiotics) Home Medications: Home Medications Al Hydrox/Mg Hydrox/Simet LIQ* [Maalox Plus*] 30 ml PO Q6H PRN 05/18/18 [ History Confirmed 05/18/18] Betaxolol-S 0.25%* [Betoptic-S 0.25%*] 1 drop BOTH EYES BEDTIME 05/18/18 [ History Confirmed 05/18/18] Cholecalciferol TAB* [Vitamin D TAB*] 5,000 unit PO DAILY 05/18/18 [History Confirmed 05/18/18] Docusate CAP* [Colace Cap*] 100 mg PO BID PRN 05/18/18 [History Confirmed ] HYDROcodone/ACETAMIN 5-325 MG* [[place] 5-325 TAB*] 1 tab PO Q4H PRN 05/18/18 [ History Confirmed 05/18/18] LORazepam TAB(*) [Ativan 0.5 MG TAB (*)] 0.5 mg PO Q12HR PRN 05/18/18 [History Confirmed 05/18/18] Lidocaine PATCH 5%* [Lidoderm 5% Patch*] 1 patch TRANSDERM BEDTIME PRN 05/18/18 [History Confirmed 05/18/18] Omeprazole CAP* [Prilosec CAP* 20 MG] 20 mg PO DAILY 05/18/18 [History Confirmed 05/18/18] Ondansetron TAB* [Zofran 4 MG Tab*] 4 mg PO Q4HR PRN 05/18/18 [History Confirmed 05/18/18] Polyethylene Glycol 3350* [Miralax*] 17 gm PO DAILY PRN 05/18/18 [History Confirmed 05/18/18] Senna TAB* [Senokot TAB*] 2 tab PO BEDTIME 05/18/18 [History Confirmed 05/18/18] Tiotropium CAP.INH* [Spiriva CAP.INH*] 1 cap.inh INH DAILY 05/18/18 [History Confirmed 05/18/18] PMH/Surg Hx/FS Hx/Imm Hx Previously Healthy: No Endocrine/Hematology History: Denies: Hx Anticoagulant Therapy, Hx Bone Marrow Disease, Hx Diabetes, Hx Sickle Cell Disease, Hx Thyroid Disease, Hx Anemia Cardiovascular History: Reports: Other Cardiovascular Problems/Disorders - RIGHT ANKLE SWELLING FOR PAST FEW MONTHS Denies: Hx Deep Vein Thrombosis, Hx Embolism, Hx Hypertension Respiratory History: Reports: Hx Chronic Obstructive Pulmonary Disease (COPD), Hx Pneumonia, Other Respiratory Problems/Disorders - HX PNEUMONIA X 2, JAIL SMOKER 50+ YRS Denies: Hx Pulmonary Embolism GI History: Reports: Hx Gastroesophageal Reflux Disease, Hx Hiatal Hernia - REPAIRED 4 YRS AGO, Hx Ulcer Denies: Other GI Disorders History: Reports: Other Problems/Disorders - FREQUENCY, WEARS DEPENDS Denies: Hx Renal Disease Musculoskeletal History: Reports: Hx Arthritis - KNEES, GENERALIZED, Hx Bursitis - LEFT ELBOW, OK NOW, Hx Osteoporosis, Other Musculoskeletal History - OSTEOPOROSIS, AMBULATES WITH A WALKER, SEE BELOW Sensory History: Reports: Hx Contacts or Glasses, Hx Glaucoma, Hx Vision Problem Denies: Hx Cataracts, Hx Hearing Aid Opthamlomology History: Reports: Hx Contacts or Glasses, Hx Glaucoma, Hx Vision Problem Denies: Hx Cataracts Neurological History: Denies: Hx Headaches, Hx Migraine, Hx Seizures, Hx Spinal Cord Injury Psychiatric History: Reports: Hx Anxiety, Hx Depression, Other Psychiatric Issues/Disorders - "untreated depression" says one daughter - Cancer History Hx Chemotherapy: No - Surgical History Surgery Procedure, Year, and Place: LEFT MASTOIDITIS AN INFANT. ORIF LEFT HIP- [place]- [facility] [place]. LEFT BREAST BX- 30 YRS AGO- [facility] [place] MACULAR HOLE RIGHT EYE- 2001- [facility]. HIATAL HERNIA REPAIR- 2012- [facility] [place] Hx Anesthesia Reactions: No Infectious Disease History: No Infectious Disease History: Denies: Hx Hepatitis, Traveled Outside the [place] in Last 30 Days - Family History Known Family History: Positive: Cardiac Disease, Other - Lung CA - Social History Occupation: Retired Lives: At [facility] Alcohol Use: None Substance Use Type: Reports: None Hx Tobacco Use: Yes Smoking Status (MU): Former Smoker Type: Cigarettes Amount Used/How Often: 1 PPD FOR 50+ YRS Length of Time of Smoking/Using Tobacco: 50+ YRS Have You Smoked in the Last Year: No Review of Systems Positive: Chills Positive: Blurred Vision Negative: Sore Throat Cardiovascular: Negative Negative: Cough Positive: Abdominal Pain. Negative: Vomiting, Diarrhea Genitourinary: Negative Positive: Other - neg: back pain Skin: Negative Neurological: Other - pos: dizziness Positive: Syncope All Other Systems Reviewed And Are Negative: No Physical Exam - Summary Physical Exam Summary: Appearance: Alert, conversive, nontoxic appearing. Pt is emaciated, cachetic. Generalized weakness. Skin: Warm, dry, no mottling, no rashes, no contusions HEENT: EOMI, PERRL, severely dry mucous membranes Neck: No masses on the neck, supple Respiratory: Clear to auscultation, breath sounds present, no rales, no rhonchi , no wheezes Cardiovascular: mildly hypotensive, RRR, pulses are symmetrical in both lower and upper extremities Abdomen: Soft, suprapubic tenderness Bowel Sounds: Present Musculoskeletal: No CVA tenderness. RUE is in sling from humeral head fracture. No pedal edema. Neurological: A&Ox3, CN II-XII Intact, moving all extremities symmetrically Psychiatric: Normal affect and mood Triage Information Reviewed: Yes Vital Signs On Initial Exam: Initial Vitals BP 109/52 05/18/18 11:23 Vital Signs Reviewed: Yes Diagnostics - Vital Signs Vital Signs Temp Pulse Resp BP Pulse Ox 05/18/18 12:00 21 05/18/18 11:53 23 99/49 05/18/18 11:25 97.4 F 101 20 109/52 0 05/18/18 11:23 109/52 - Laboratory Result Diagrams: 05/18/18 12:00 05/18/18 12:00 Lab Statement: Any lab studies that have been ordered have been reviewed, and results considered in the medical decision making process. - CT Brain CT Interpretation: Positive (See Comments) - IMPRESSION: Atrophy. No intracranial mass or hemorrhage is noted. No changes noted since previous exam of April 23, 2018. Fluid in the mastoid air cells bilaterally. ED provider has reviewed this report. CT Interpretation Completed By: Radiologist - EKG 1120 Cardiac Rate: NL - 95bpm EKG Rhythm: Sinus Tachycardia EKG Interpretation: PACs. QRS nml, QTC nml. Nml axis. ST depression noted V4- V6. Course/Dx Course Of Treatment: An 87 y/o F presents s/p witnessed syncopal episode lasting a few minutes. Pt did not hit her head, did not fall to the floor. Associated sx: chills, abd pain, dizziness, blurry vision. Urine sample is visibly milky. - Diagnoses Provider Diagnoses: UTI (urinary tract infection) - Physician Notifications Discussed Care of Patient With: Lydia Cabrales - hospitalist Time Discussed With Above Provider: 12:23 Instructed by Provider To: Admit As Inpatient Discharge - Sign-Out/Discharge Documenting (check all that apply): Patient Departure - ADMIT - Discharge Plan Condition: Stable Disposition: ADMITTED TO [facility] - Billing Disposition and Condition Condition: STABLE Disposition: Admitted to [facility] - Attestation Statements Document Initiated by Scribe: Yes Documenting Scribe: Joseluis Rubio Provider For Whom Merlineibnhung is Documenting (Include Credential): Dr. Marilee Camp Scribe Attestation: Joseluis Clarke scribed for Dr. Marilee Camp on 05/18/18 at 2154. Scribe Documentation Reviewed: Yes Provider Attestation: The documentation as recorded by the Joseluis collier accurately reflects the service I personally performed and the decisions made by , Dr. Marilee Camp
[2018-05-18 12:23] LABS: ABS Basophils 0 10^3/ul (0-0.2); ABS Eosinophils 0.1 10^3/ul (0-0.6); ABS Lymphocytes 0.8 10^3/ul (1.0-4.8); ABS Monocytes 0.7 10^3/ul (0-0.8); ABS Neutrophils 13.8 10^3/ul (1.5-7.7); ABS Nucleated RBC 0 10^3/ul; Eosinophil % 0.9 % (0-6); Hematocrit 30 % (35-47); Hemoglobin 9.2 g/dl (12.0-16.0); Mean Corpuscular HGB Conc 31 g/dl (31-36); Mean Corpuscular Hemoglobin 24 pg (27-31); Mean Corpuscular Volume 79 fL (80-97); Mean Platelet Volume 7.5 um3 (7.4-10.4); Nucleated Red Blood Cells % 0; Platelet Count 366 10^3/ul (150-450); Red Blood Count 3.79 10^6/ul (4.00-5.40); Red Cell Distribution Width 21 % (10.5-15); White Blood Count 15.4 10^3/ul (3.5-10.8)
[2018-05-18 12:35] LABS: Urine Appearance Turbid; Urine Blood 1+ (Negative); Urine Color Yellow; Urine Ketones Negative (Negative); Urine Protein 2+(100 mg/dL) (Negative); Urine Red Blood Cell 1+(3-5/hpf) (Absent); Urine Specific Gravity 1.011 (1.010-1.030); Urine Urobilinogen Negative (Negative); Urine White Blood Cell 3+(>20/hpf) (Absent)
[2018-05-18 12:42] LABS: EGFR Non-African American 72.3 (>60)
[2018-05-18] MEDS ORDERED: Phenazopyridine TAB* 100 MG PO ONE (13:07)
[2018-05-18] MEDS ORDERED: Acetaminophen TAB* 325 MG PO ONE (13:08)
[2018-05-18] MEDS ORDERED: Morphine INJ* 2 MG/ML 1 ML SYRINGE (TWO MG - NEW SYRINGE VERSION) IV ONE ×2 (13:09→14:47)
[2018-05-18] MEDS ORDERED: cefTRIAXone(*) 1 GM in NS 0.9% 50 ML* 50 ML IVPB SCH (13:24)
[2018-05-18] MEDS ORDERED: Morphine INJ* 4 MG/ML 1 ML SYRINGE (NEW SYRINGE VERSION) IV ONE ×2 (13:30→14:53)
[2018-05-18] MEDS ORDERED: Polyethylene Glycol 3350* 17 GM PACKET PO PRN (13:34)
[2018-05-18] MEDS ORDERED: Cyclobenzaprine TAB* 10 MG PO PRN (13:34)
[2018-05-18] MEDS ORDERED: LORazepam TAB(*) 0.5 MG PO PRN (13:34)
[2018-05-18] MEDS ORDERED: Acetaminophen TAB* 325 MG PO PRN (13:34)
[2018-05-18] MEDS ORDERED: Docusate CAP* 100 MG PO PRN (13:34)
[2018-05-18] MEDS ORDERED: Al Hydrox/Mg Hydrox/Simet LIQ* 30 ML UDC PO PRN (13:34)
[2018-05-18] MEDS ORDERED: Polyethyl Glycol/Propylene Gly OPHTH.SOLN BOTH EYES PRN (13:41)
[2018-05-18] MEDS ORDERED: Morphine INJ* 4 MG/ML 1 ML SYRINGE (NEW SYRINGE VERSION) ONE (14:51)
[2018-05-18] MEDS: Ondansetron TAB* 4 MG PO PRN (15:50)
[2018-05-18] MEDS: NS 0.9% 1000 ML* 1,000 ML IV SCH (16:11)
--- NOTE | 2018-05-18 17:09 | HP ---
CC: [facility].* HISTORY AND PHYSICAL: DATE OF ADMISSION: 05/18/18 PRIMARY CARE PROVIDER: Lydia Cabrales DO at [facility]. CHIEF COMPLAINT: Syncope and pelvic pain. HISTORY OF PRESENT ILLNESS: Ms. Plascencia is an 87-year-old female who resides at [facility] and was in the waiting room of the orthopedic office when suddenly she told her daughter that she felt very hot. She also stated that she felt very dizzy. The patient's left arm then started shaking and she passed out for a few minutes. When the patient awakened, she was somewhat confused for another minute to two minutes. The patient states that in addition to this, she has been having severe pelvic pain over the last 2 to 3 weeks. She states that she has been having significant hesitation and dysuria with urination. She states that this has been going on for 2 to 3 weeks. She states that she is not 100% sure if her pain was worsened suddenly before passing out. She does feel very thirsty. PAST MEDICAL HISTORY: 1. COPD with chronic hypoxic respiratory failure on 2 L of oxygen continuously. 2. Glaucoma. 3. Chronic back pain. 4. Degenerative disc disease. 5. Constipation. 6. Right proximal old humerus fracture. PAST SURGICAL HISTORY: 1. Right hand surgery. 2. Left hip ORIF. MEDICATIONS: 1. Spiriva 1 puff inhaled daily. 2. Senna 2 tabs p.o. q.h.s. 3. Zofran 4 mg p.o. q.4 hours p.r.n. nausea. 4. Omeprazole 20 mg p.o. daily. 5. MiraLAX 17 grams p.o. daily p.r.n. constipation. 6. Pineland 5/325 one tab p.o. q.4 hours p.r.n. pain. 7. Lidoderm patch 1 patch topically at bedtime as needed for pain. 8. Ativan 0.5 mg p.o. q.12 hours p.r.n. anxiety. 9. Maalox Plus 30 mL p.o. q.6 hours p.r.n. indigestion. 10. Flexeril 5 mg p.o. t.i.d. p.r.n. spasm. 11. Colace 100 mg p.o. b.i.d. p.r.n. constipation. 12. Vitamin D 5000 units p.o. daily. 13. Betoptic 1 drop to both eyes at bedtime. 14. Tylenol 650 mg p.o. q.4 hours p.r.n. pain. ALLERGIES: CODEINE, LACTOSE and SULFA. FAMILY HISTORY: The patient's mom at the age of 85 "old age." Her father was an alcoholic. SOCIAL HISTORY: The patient is a former smoker. She does not drink alcohol. She resides at [facility]. Her daughter Inna is her healthcare proxy. REVIEW OF SYSTEMS: Complete 11-system review of systems was obtained. Pertinent positives and negatives are as per HPI and otherwise negative. PHYSICAL EXAMINATION GENERAL: The patient is a well-developed, cachectic elderly female sitting up in the stretcher, appeared to be in no acute distress. VITAL SIGNS: Blood pressure 105/48, pulse 98, respirations 26, temp 97.4, O2 sat is unobtainable. HEENT: Pupils are equal and round. Extraocular muscles are intact. There is slight weeping from the left eye. The sclerae is non-injected. There is no submandibular, cervical or supraclavicular adenopathy. PULMONARY: Lungs are clear. The breath sounds are diminished throughout. CARDIAC: Normal S1 and S2. Heart rate is very mildly tachycardic in the high 90s. There is no lower extremity edema. ABDOMEN: Bowel sounds are present. Abdomen is soft, nondistended. She is diffusely tender but worse in the right lower quadrant. MUSCULOSKELETAL: There is no cyanosis or clubbing of the digits. There is full active range of motion of the legs and left arm. Right arm is in a sling due to proximal humerus fracture. NEURO: Cranial nerves II through XII appear to be grossly intact. Sensation is intact to light touch throughout. Strength is 5/5 and symmetric in both upper and lower extremities bilaterally. SKIN: Warm and dry. There are no rashes. PSYCH: The patient is alert. She is oriented x3. Affect appears appropriate. LABORATORY DATA/DIAGNOSTIC STUDIES: WBC 15.4, hemoglobin 9.2, hematocrit 30, platelets 366. Sodium 138, potassium 4.2, chloride of 106, CO2 of 23, BUN 28, creatinine 0.76, glucose 117, calcium 9.3, magnesium 2.5, bilirubin 0.5, AST 23 , ALT 10, alk phos 172, troponin 0.03. BNP 72, TSH 10.55. Urinalysis reveals turbid urine with a specific gravity 1.011, 2+ protein, 1+ blood, 2+ leukocyte esterase, 3+ WBC, 1+ RBC, absent bacteria. ASSESSMENT AND PLAN: Ms. Plascencia is an 87-year-old long-term resident of [facility], who has a history of chronic obstructive pulmonary disease and chronic hypoxic respiratory failure, recent right proximal humerus fracture and chronic back pain, who presents to the emergency room after having a syncopal episode while awaiting her orthopedic visit today and complains of pelvic pain. 1. Sepsis secondary to urinary tract infection. The patient, by spesis-II definition, is septic with mild tachycardia and tachypnea and leukocytosis. The patient has received so far 1159 mL bolus. She has received ceftriaxone for urinary tract infection. Based on the patient's prior culture data, it is unclear what antibiotic she will best be served by. The patient has grown numerous different bacteria. For now, we will continue ceftriaxone and await the urine culture. If the patient decompensates by becoming either hypotensive or looking acutely ill, the antibiotics coverage could be broadened. 2. Syncope. The patient had syncopal episode while waiting in the orthopedic office. It sounds to be likely vasovagal in nature. She described feeling of warmth and dizziness and then passed out. There was some shaking of the left arm. However, the patient was in an upright position and I suspect this likely represent syncope with convulsion. The patient had a transthoracic echocardiogram on 04/24/18, which revealed abnormal left ventricular diastolic filling and EF of greater than 65%, trace mitral regurgitation, moderate tricuspid regurgitation, and moderate pulmonary hypertension. I will not repeat the patient's echocardiogram at this time. CT of the brain has been ordered and is pending at this time. The patient will be monitored on telemetry. We will get the patient up and moving prior to discharge back to [facility]. 3. Chronic obstructive pulmonary disease. The patient has a history of chronic obstructive pulmonary disease and chronic hypoxic respiratory failure requiring 2 L of oxygen continuously. Her O2 saturation has been somewhat difficult to obtain in the emergency room. She does not appear to be hypoxic or cyanotic at this time. We will continue her home level of supplemental oxygen and monitor for any signs of respiratory distress. 4. Gastroesophageal reflux disease. Continue omeprazole. 5. Chronic back pain. Continue p.r.n. Pineland and Flexeril. 6. Constipation. We will continue home medication regimen. 7. DVT prophylaxis. According to the Adult Thrombosis Prophylaxis Risk Factor Assessment Guide, the patient has a total risk factor score of 3, making her high risk. She will be placed on Lovenox 30 mg subcutaneous daily. 8. Code status is full. TIME SPENT: Sixty five minutes was spent admitting this patient. [id number]/[facility] #: [id number] ROBERT
--- NOTE | 2018-05-18 17:53 | RAD ---
Indication: Syncope. CT of the brain performed without IV contrast. Ventricular structures are midline. No midline shift is noted. There is central and cortical atrophy noted. No fracture of the skull is noted. There is some fluid in the mastoid air cells bilaterally. Paranasal sinuses are otherwise unremarkable. IMPRESSION: Atrophy. No intracranial mass or hemorrhage is noted. No changes noted since previous exam of April 23, 2018. Fluid in the mastoid air cells bilaterally.
[2018-05-18] MEDS: Senna TAB PO SCH (20:10)
[2018-05-18] MEDS: HYDROcodone/ACETAMIN 5-325 MG* 1 TAB PO PRN (20:11)
[2018-05-18] MEDS: Enoxaparin(*) 30 MG/0.3 ML SYR SUBCUT SCH ×2 (20:12)
[2018-05-18] MEDS ORDERED: Betaxolol-S 0.25%* 10 ML BTL BOTH EYES SCH (21:00)
[2018-05-19] MEDS: HYDROcodone/ACETAMIN 5-325 MG* 1 TAB PO PRN (01:45)
[2018-05-19] MEDS: Senna TAB PO SCH (05:15)
[2018-05-19] MEDS: NS 0.9% 1000 ML* 1,000 ML IV SCH (07:30)
[2018-05-19] MEDS ORDERED: Omeprazole CAP* 20 MG PO SCH (07:30)
[2018-05-19 07:34] LABS: ABS Basophils 0.1 10^3/ul (0-0.2); ABS Eosinophils 0.1 10^3/ul (0-0.6); ABS Lymphocytes 1.1 10^3/ul (1.0-4.8); ABS Monocytes 0.8 10^3/ul (0-0.8); ABS Neutrophils 9.8 10^3/ul (1.5-7.7); ABS Nucleated RBC 0 10^3/ul; Eosinophil % 1.2 % (0-6); Hematocrit 26 % (35-47); Hemoglobin 7.7 g/dl (12.0-16.0); Lymphocyte % 8.9 % (25-47); Mean Corpuscular HGB Conc 30 g/dl (31-36); Mean Corpuscular Hemoglobin 24 pg (27-31); Mean Corpuscular Volume 80 fL (80-97); Mean Platelet Volume 7.4 um3 (7.4-10.4); Nucleated Red Blood Cells % 0; Platelet Count 277 10^3/ul (150-450); Red Blood Count 3.17 10^6/ul (4.00-5.40); Red Cell Distribution Width 20 % (10.5-15); White Blood Count 11.8 10^3/ul (3.5-10.8)
[2018-05-19 07:44] LABS: EGFR Non-African American 100.8 (>60)
[2018-05-19] MEDS: Ondansetron TAB* 4 MG PO PRN (08:26)
[2018-05-19] MEDS ORDERED: Spiriva Inhaler DEVICE* 1 EACH DEVICE INH ONE (09:00)
[2018-05-19] MEDS ORDERED: Cholecalciferol TAB* 1000 UNITS PO SCH (09:00)
[2018-05-19] MEDS ORDERED: Tiotropium CAP.INH* CAP.INH/18 MCG (USE ORDER SET !) INH SCH (09:00)
[2018-05-19 09:14] VITALS: BP 125/50
[2018-05-19] MEDS ORDERED: cefTRIAXone(*) 1 GM in NS 0.9% 50 ML* 50 ML IVPB SCH (12:00)
--- NOTE | 2018-05-19 15:43 | TRS ---
CC: Dr. Connor * TRANSFER SUMMARY: DATE OF ADMISSION: DATE OF TRANSFER: 05/19/18 HISTORY OF PRESENT ILLNESS/HOSPITAL COURSE: This 87-year-old woman was admitted with syncope and pelvic pain. She was sitting in the waiting room of the orthopedic office with her daughter. She said she felt very hot and dizzy, her left shook and she passed out for a few minutes. She was confused for another minute or two after waking up. The patient also stated that she has had severe pelvic pain more in the midline in the genital area in the last 2 to 3 weeks. She has had hesitation and dysuria with urination for 2 to 3 weeks. The rest of the history was detailed in the admission note. The patient was felt to have sepsis due to urinary tract infection. She had mild tachycardic, tachypnea, and leukocytosis. She received some intravenous fluids. She received ceftriaxone. Urine culture grew out mixed shira. Her urinalysis was abnormal. The patient had a Mcclain catheter for part of her hospital stay. This will be removed before discharge. She received 3 doses of ceftriaxone. She will start her cefuroxime on the morning of 05/20/18. FINAL DIAGNOSES: 1. Possible urinary tract infection. 2. Convulsive syncope. 3. Chronic obstructive pulmonary disease. 4. Gastroesophageal reflux disease. 5. Chronic back pain. 6. Constipation. MEDICATIONS ON TRANSFER: 1. Cefuroxime 250 mg b.i.d. for 3 days. 2. Acetaminophen 650 mg every 4 hours p.r.n. 3. Cyclobenzaprine 5 mg t.i.d. p.r.n. 4. Tiotropium 1 capsule daily. 5. Senna 2 tabs at bedtime. 6. Ondansetron 4 mg every 4 hours p.r.n. 7. Omeprazole 20 mg daily. 8. Polyethylene glycol 17 g daily p.r.n. 9. Hydrocodone/acetaminophen 5/325 one every 4 hours p.r.n. 10. Lidocaine patch 5% at bedtime p.r.n. 11. Lorazepam 0.5 mg every 12 hours p.r.n. 12. Maalox Plus 30 mL every 6 hours p.r.n. 13. Docusate 100 mg b.i.d. p.r.n. 14. Betaxolol S 0.25% one drop both eyes at bedtime. DISCHARGE DISPOSITION: transfer to [facility] DISCHARGE CONDITION: good [id number]/[facility] #: [id number] ROBERT
[2018-05-20] MEDS ORDERED: ceFUROXime TAB(*) 250 MG PO SCH (09:00)
== END 2018-05-19 15:45 ==
LOC: ED 11:15 → MED 13:23
PROVIDERS: ADMIT Hospitalist; ATTEND Internal Medicine
DX: N39.0 Urinary tract infection, site not specified (principal); R55 Syncope and collapse; G89.29 Other chronic pain; M54.9 Dorsalgia, unspecified; K59.00 Constipation, unspecified; R42 Dizziness and giddiness; H53.8 Other visual disturbances; R68.83 Chills (without fever); R10.9 Unspecified abdominal pain; Z87.891 Personal history of nicotine dependence; J44.9 Chronic obstructive pulmonary disease, unspecified; H40.9 Unspecified glaucoma; M51.36 Other intervertebral disc degeneration, lumbar region; M51.34 Other intervertebral disc degeneration, thoracic region; K21.9 Gastro-esophageal reflux disease without esophagitis
CPT/HCPCS: 36415; 70450; 80048; 80053; 81003; 81015; 83605; 83735; 83880; 84443; 84484; 85025; 87040; 87077; 87086; 87186; 87493; 93005; 94640; 96361; 96365; 96366; 96372; 96374; 96376; 99285; A9270-GY; G0378; J0696; J1650; J2270